=== PATIENT | male | born 1930 | race Caucasian/White ===

== ENCOUNTER 2017-07-07 08:00 | Day surgery (SDC) | payer MEDICARE, BC ==
[2017-06-30 23:08] VITALS: BMI 31.8
[~2017-07-07 08:00] MED LIST: LACTATED RINGERS 1,000 ML IV SCH
[2017-07-07] MEDS ORDERED: LIDOCAINE 1% 20 ML VIAL (10MG/ML) FOR IV START INTRADERMA ONE (08:41)
[2017-07-07 08:43] VITALS: RESP 16; TEMP 97.3
--- NOTE | 2017-07-07 09:47 | P.PCN ---
Date of Procedure: 07/07/17 Procedure(s) Performed: PREOPERATIVE DIAGNOSIS : 1- Lumbar spondylosis with Facet Arthropathy without myelopathy . 2- Lumber Failed back surgery POSTOPERATIVE DIAGNOSIS: 1- Lumbar spondylosis with Facet Arthropathy without myelopathy . 2- Lumber Failed back surgery PROCEDURE: Diagnostic bilateral L4 -5 , and L5-S1 medial branch block under fluoroscopy ( I couldnot do L3-4 or L2-3 because of the Hardware was covering the View ) I did 2 levels only ANESTHESIA: Local with 1% lidocaine 4 ml , moderate sedation with intravenous, and Fentanyl 100 mcg. EBL: Minimal COMPLICATION: None. IV FLUIDS: 100 mL of normal saline. PROCEDURE INDICATION: Chronic low back pain secondary to Facet arthropathy unresponsive to conservative treatment. PROCEDURE DESCRIPTION: the patient was seen and identified in the preop holding area , risks and benefits and possible complications of the procedure and alternative were discussed with the patient, and the patient agreed to proceed with the procedure and signed the consent IV was started and vital signs monitored during the procedure and fluoroscopy was used to maximize the benefit and accuracy of the needle placement, and sedation was given to decrease patient anxiety, patient was taken to the procedure room and placed in prone position vital signs monitored in the back prepped with chlorhexidine X3 then under strict sterile technique using a right oblique fluoroscopy ,the junction of the transverse process and the superior articulating process of the right L4- 5, and L5-S1 vertebra which corresponding to the fluoroscopy image of the eye of the Hilario dog on the block side for the medial branches and subsequently , after local infiltration of skin and subcu tissuies with lidocaine 1% one mL at each level ,then 22- gauge Quincke-type needles , 2 needle was used , each one of them placed at the junction of the base of the transverse process and the superior articular process at the appropriate level, and the needle was advanced until the periosteum contacted, needle placement confirmed with AP oblique and lateral view and after appropriate needle placement confirmed, and after negative aspiration for heme and CSF and there was no paresthesia 1 mL of Marcaine 0.5% mixed with 40 mg Kenalog , then half mL injected at each level after negative aspiration the needle subsequently removed and the same procedure repeated for the left side at left side at , L4- 5 and L5-S1 levels. At the end of the procedure and the needles removed and a bandage applied after the skin was cleaned the cleaning solution patient taken to recovery room in stable condition and monitors in the recovery room for 20-30 minutes and discharged home in stable condition after discharge criteria met and patient will follow up with the pain clinic in 2-4 weeks
[2017-07-07] MEDS ORDERED: IV FLUID CONTINUATION 1,000 ML IV ONE (09:51)
--- NOTE | 2017-07-07 10:09 | FL ---
Fluoroscopy HISTORY: Pain 6 seconds fluoroscopy time supplied to the referring clinician. 4 intraoperative C-arm images docume nt the procedure. See dictated report from anesthesia.
[2017-07-07 10:18] VITALS: BP 147/78; PULSE 64
== END 2017-07-07 10:37 | disposition home or self-care (01) ==
LOC: ORPAIN 08:00
PROVIDERS: ATTEND Specialist
DX: G89.29 Other chronic pain (principal); M47.816 Spondylosis without myelopathy or radiculopathy, lumbar region; M96.1 Postlaminectomy syndrome, not elsewhere classified; I10 Essential (primary) hypertension; K21.9 Gastro-esophageal reflux disease without esophagitis; G20 Parkinson's disease
CPT/HCPCS: 64493; 64494; J2250; J3301; 99152

== ENCOUNTER → 2017-08-09 | Outpatient (CLI) | payer MEDICARE, BC ==
[2017-08-09 14:46] VITALS: BP 126/66; PULSE 67; RESP 16
--- NOTE | 2017-08-09 15:13 | P.PN ---
Progress Note - Text Progress Note Date: 08/09/17 This is a 6-year-old gentleman with history of lower back pain with radiation to the lower extremities down to both calves with occasional numbness and tingling in the legs. The patient did not respond to diagnostic medial branch block. He occasionally takes oxycodone ER 10 mg once a day but he tries to avoid it because it does cause him constipation. By physical exam he is alert oriented 3 in no apparent distress. Neuro exam of the lower extremities showed normal and symmetrical hip flexion, decreased knee flexion bilaterally to 4 out of 5 and normal knee extension bilaterally he also has normal ankle flexion and extension bilaterally. He has absent deep tendon reflexes in the lower extremities bilaterally and symmetrically. Straight leg raise test negative bilaterally. The patient may benefit from getting caudal epidural steroid injection with lysis of adhesions, we will do this injection one time only for avoid giving him too much steroids. If this procedure doesn't help the patient and give him long-lasting benefits then we can plan on repeating that but if it doesn't the patient may be a candidate for spinal cord stimulator and I will give him a DVD to explain the procedure .
== END | disposition home or self-care (01) ==
LOC: PNWHC3 14:22
PROVIDERS: ATTEND Anesthesiology
DX: M54.5 Low back pain (principal)
CPT/HCPCS: 99211

== ENCOUNTER 2017-09-06 08:40 | Day surgery (SDC) | payer MEDICARE, BC ==
[2017-09-01 13:44] VITALS: BMI 31.8
[~2017-09-06 08:40] MED LIST changes: +LACTATED RINGERS 1,000 ML IV ONE; -LACTATED RINGERS 1,000 ML IV SCH
[2017-09-06 09:55] VITALS: TEMP 97.8
[2017-09-06] MEDS ORDERED: LIDOCAINE 1% 20 ML VIAL (10MG/ML) FOR IV START INTRADERMA ONE (09:55)
[2017-09-06] MEDS ORDERED: LACTATED RINGERS 1,000 ML IV ONE ×2 (09:55)
--- NOTE | 2017-09-06 10:57 | P.PCN ---
Date of Procedure: 09/06/17 Surgeon: Stanislav Chan Description of Procedure: PREOP DIAGNOSIS: Lumbar postlaminectomy syndrome. POSTOP DIAGNOSIS: Lumbar postlaminectomy syndrome. PROCEDURE: Caudal epidural steroid injection with epidurolysis and epidurogram under fluoroscopic guidance ANESTHESIA: Local with 1% lidocaine; IV moderate conscious sedation EBL: Minimal. PROCEDURE INDICATION: The patient with post-laminectomy syndrome with low back pain and radiculopathy radiating down in both legs, here for a caudal epidural steroid injection with epidurolysis. PROCEDURE DESCRIPTION: The patient was seen in the preoperative holding area consent was obtained then he was brought into the procedure room and placed in prone position. Skin was prepped with ChloraPrep and draped in a sterile manner. Lidocaine 1% was used to numb the skin up at the target point that was chosen as follows: The lateral view of fluoroscopy was used to identify the sacral hiatus and then after localizing the skin with lidocaine 1% I used 18- gauge epidural needle with a plastic sheath to go through the sacral hiatus and into the sacral canal and then injected 1 mL of Omnipaque for verification of needle tip position. After that the metal core of the needle was taken out and the plastic sheath was kept in the sacral canal. Then Racz catheter was introduced through the plastic sheath and into the epidural space at the sacral canal using the AP view of fluoroscopy up to L5-S1 level then I injected 2 MLS of Omnipaque which showed limited spread in the epidural space and after few back and forth movements of the Racz catheter I was able to introduce the needle one level higher to the L4 5 level and then there was more spread of the Omnipaque after injecting 3 more mils of Omnipaque on the AP view of fluoroscopy. After that I injected 80 mg of Kenalog +2 MLS of Marcaine 0.25% + 7 MLS of preservative-free normal saline to a total volume of 10 MLS in the epidural space. Patient tolerated procedure well. Of note: The Racz catheter was introduced to the right side of midline because most of the patient's pain is on the right side of the lower back and also down the right leg to the right foot . COMPLICATIONS: None. DISPOSITION / PLANS: The patient was placed in a supine position and transferred to the recovery area in a stable condition for observation and was discharged from the recovery room after meeting discharge criteria. Home discharge instructions given to the patient by the staff. The patient was reexamined prior to discharge.
[2017-09-06 11:05] VITALS: RESP 16
[2017-09-06 11:16] VITALS: BP 157/88; PULSE 61
[2017-09-06] MEDS ORDERED: IV FLUID CONTINUATION 1,000 ML IV ONE (11:19)
--- NOTE | 2017-09-06 11:46 | FL ---
EXAMINATION TYPE: FL guided pain mgmt statistic DATE OF EXAM: 09/06/2017 HISTORY: Flouroscopy time 36 seconds of fluoroscopy provided. IMPRESSION: 1. Fluoroscopy time.
== END 2017-09-06 11:24 | disposition home or self-care (01) ==
LOC: ORPAIN 08:40
PROVIDERS: ATTEND Anesthesiology
DX: M96.1 Postlaminectomy syndrome, not elsewhere classified (principal); I10 Essential (primary) hypertension
CPT/HCPCS: 62264; J3301; Q9965; J3010; C1894; 99152

== ENCOUNTER → 2017-12-20 | Outpatient (CLI) | payer MEDICARE, BC ==
--- NOTE | 2017-12-20 14:18 | BD ---
EXAMINATION TYPE: Axial Bone Density DATE OF EXAM: 12/20/2017 COMPARISON: NONE CLINICAL HISTORY: Height: 232.9 Weight: 69 FRAX RISK QUESTIONS: Alcohol (3 or more units per day): no Family History (Parent hip fracture): no Glucocorticoids (More than 3mos): no (Ex: prednisone, prednisolone, methylprednisolone, dexamethasone, and hydrocortisone). History of Fracture in Adulthood: no Secondary Osteoporosis: 1. Type 1 Diabetes: no 2. Hyperthyroidism: no 3. Menopause before 45: N/A 4. Malnutrition: no 5. Chronic liver disease: no Rheumatoid Arthritis: no Current Tobacco Use: no RISK FACTORS HISTORY OF: Surgery to Spine/Hip(right/left)/Wrist (right/left): lumbar spine fusion l-3.4 When: 3 years ago Family History of Osteoporosis: no Active: no Diet low in dairy products/other sources of calcium: no Lost more than 2 inches in height since high school: no Frequent falls: yes MEDICATIONS: zantac, oxycodone, sinemet, atenolol, lotrel, methotrexate, folic acid, vit d, vit b12 Additional History: EXAM MEASUREMENTS: Bone mineral densitometry was performed using the Map[employer] System. Bone mineral density about the R hip (g/cm2): 0.849 Bone mineral density about the L hip (g/cm2): 0.825 T Score values are as follows: -----R Neck: -1.4 -----L Neck: -1.5 -----R Total: -1.2 -----L Total: -0.8 Bone mineral density : baseline Bone mineral density about the L Wrist (g/cm2): 0.506 T Score values are as follows: -----Dist. R+U: -2.8 -----Prox. R+U: -3.2 -----Radius total: -3.6 Bone mineral density : baseline IMPRESSION: Osteoporosis (T Score less than -2.5). There is increased fracture risk and therapy is usually indicated based on age. Re-Screen 1-2 years. NOTE: T-SCORE=SD OF THE YOUNG ADULT MEAN.
== END | disposition home or self-care (01) ==
LOC: RADBDWWP 13:16
PROVIDERS: ATTEND Orthopaedic Surgery
DX: M81.0 Age-related osteoporosis without current pathological fracture (principal); M17.11 Unilateral primary osteoarthritis, right knee
CPT/HCPCS: 36415; 77080; 82306

== ENCOUNTER → 2018-08-18 | Outpatient (CLI) | payer MEDICARE, BC ==
--- NOTE | 2018-08-19 03:20 | MR ---
EXAMINATION TYPE: MR iac wo/w con DATE OF EXAM: 08/18/2018 COMPARISON: None HISTORY: dizziness, alvin weakness TECHNIQUE: Multiplanar, multisequence images of the brain and brainstem is performed without and with IV contras t, utilizing 10 mL intravenous Gadavist . FINDINGS: There is diffuse cerebral cortical atrophy. There is moderate enlargement of the ventricles . There is thinning of the corpus callosum. I see no evidence of a cortical infarct. The brainstem is intact. The internal auditory canals appear normal. Acoustic nerve and vestibular nerve appear normal in size and contour. There is no evidence of cerebellopontine angle mass. I see no bony destructive process. There is normal signal pattern in the temporal bones. There is no pathologic enhancement. There is n ormal contrast opacification of the venous sinuses. IMPRESSION: Moderate atrophy. Hydrocephalus. No evidence of posterior fossa mass. Normal internal aud itory canals.
== END | disposition home or self-care (01) ==
LOC: RADMRIMAIN 18:31
PROVIDERS: ATTEND Otolaryngology
DX: G31.9 Degenerative disease of nervous system, unspecified (principal); G91.9 Hydrocephalus, unspecified; H91.90 Unspecified hearing loss, unspecified ear; H81.93 Unspecified disorder of vestibular function, bilateral
CPT/HCPCS: 70553; A9585

== ENCOUNTER 2018-10-27 15:27 | Observation (INO) | payer MEDICARE, BC ==
[2018-10-27] MEDS ORDERED: SODIUM CHLORIDE 0.9% 500 ML 500 ML IV STA (15:48)
--- NOTE | 2018-10-27 15:58 | ED ---
General Adult HPI - General Chief complaint: Seizure Stated complaint: WEAKNESS Time Seen by Provider: 10/27/18 15:30 Source: patient, EMS, RN notes reviewed Mode of arrival: EMS Limitations: no limitations - History of Present Illness Initial comments: This is an 88-year-old male who presents to the emergency department after having had an episode a restaurant. Patient took an OxyContin approximate hour later went out to lunch without having eaten much that day and was feeling extremely weak and needed assistance to get into the restaurant. People were assisting him into the restaurant stated he was dragging his right leg at that point. thinks she was just weak all over but insisted he was dragging his right leg. Once again has had a restaurant and sat down he was feeling little better the ordered some food he took a couple bites of his food and then started just staring straight ahead according to the and began to shake for a short period of time said he shook for approximately 30 seconds and then just stared ahead everybody came over and helped him and he was confused for a short period of time and then started to come around and by that time EMS had arrived. Patient currently has no complaints. Patient denies any headache patient denies lightheadedness. Patient denies any chest pain palpitations difficulty breathing shortness of breath. Patient denies any recent fever chills or cough. Patient denies abdominal pain patient denies any nausea or vomiting. Patient denies any recent diarrhea. - Related Data Home Medications Medication Instructions Recorded Confirmed Aspirin 81 mg PO DAILY 11/13/13 10/27/18 Methotrexate Sodium [Methotrexate] 12.5 mg PO WE 11/13/13 10/27/18 Ranitidine HCl [Zantac] 150 mg PO BID 11/13/13 10/27/18 amLODIPine BESYLATE/BENAZEPRIL 1 each PO DAILY 11/13/13 10/27/18 [Lotrel 5-10 mg Capsule] Vit A/Vit C/Vit E/Zinc/Copper 1 cap PO DAILY 04/23/17 10/27/18 [ICAPS SOFTGEL] oxyCODONE ER [OxyCONTIN 10MG E.R] 10 mg PO Q12HR PRN 04/23/17 10/27/18 Folic Acid 1 mg PO DAILY 06/29/17 10/27/18 Acetaminophen [Tylenol] 325 mg PO Q8H 10/27/18 10/27/18 Atenolol [Tenormin] 25 mg PO DAILY 10/27/18 10/27/18 Carbidopa-Levodopa 25-250 mg 1 tab PO BID 10/27/18 10/27/18 [Sinemet 25-250 mg] Carbidopa/Levodopa [Sinemet CR 1 tab PO DAILY 10/27/18 10/27/18 50-200 mg] Ipratropium [place] 0.06%Nasal 1 spray EA NOSTRIL TID 10/27/18 10/27/18 [Atrovent Nasal 0.06%] Allergies Allergy/AdvReac Type Severity Reaction Status Date / Time No Known Allergies Allergy Verified 10/27/18 16:05 Review of Systems ROS Statement: Those systems with pertinent positive or pertinent negative responses have been documented in the HPI. ROS Other: All systems not noted in ROS Statement are negative. 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 prostate cancer-had radiation History of Any Multi-Drug Resistant Organisms: None Reported Past Surgical History: Back Surgery, Cholecystectomy Additional Past Surgical History / Comment(s): [facility]. Past Anesthesia/Blood Transfusion Reactions: No Reported Reaction Past Psychological History: No Psychological Hx Reported Smoking Status: Former smoker - Past Family History Mother Family Medical History: No Reported History General Exam - General Exam Comments Initial Comments: GENERAL: Patient is well-developed and well-nourished. Patient is nontoxic and well- hydrated and is in mild distress. ENT: Neck is soft and supple. No significant lymphadenopathy is noted. Oropharynx is clear. Moist mucous membranes. Neck has full range of motion without eliciting any pain. EYES: The sclera were anicteric and conjunctiva were pink and moist. Extraocular movements were intact and pupils were equal round and reactive to light. Eyelids were unremarkable. PULMONARY: Unlabored respirations. Good breath sounds bilaterally. No audible rales rhonchi or wheezing was noted. CARDIOVASCULAR: There is a regular rate and rhythm without any murmurs gallops or rubs. ABDOMEN: Soft and nontender with normal bowel sounds. SKIN: Skin is clear with no lesions or rashes and otherwise unremarkable. NEUROLOGIC: Patient is alert and oriented x3. Cranial nerves II through XII are grossly intact. Motor and sensory are also intact. Normal speech, volume and content. Symmetrical smile. ebellar exam grossly intact. MUSCULOSKELETAL: Normal extremities with adequate strength and full range of motion. No lower extremity swelling or edema. No calf tenderness. LYMPHATICS: No significant lymphadenopathy is noted PSYCHIATRIC: Normal psychiatric evaluation. Limitations: no limitations Course Vital Signs 10/27/18 15:28 Temperature 97.7 F Pulse Rate 54 L Respiratory 18 Rate Blood Pressure 128/64 O2 Sat by Pulse 98 Oximetry Medical Decision Making - Medical Decision Making EKG shows sinus bradycardia at [address] interval is 246 QRS is 122 QT interval 472 QTC is 459 per patient's EKG shows a right bundle branch block. No ST segment depression or elevation Chest x-ray shows possible infiltrate however patient has no symptoms of pneumonia no fever no white count at this point time it will not be treating for pneumonia. On reevaluation of the patient patient has no neurologic deficit at this time.. CT of the brain shows no acute abnormality. - Lab Data Result diagrams: 10/27/18 15:49 10/27/18 15:49 Lab Results 10/27/18 10/27/18 10/27/18 Range/Units 15:49 15:49 15:49 WBC 7.4 (3.8-10.6) k/uL RBC 4.54 (4.30-5.90) m/uL Hgb 13.7 (13.0-17.5) gm/dL Hct 41.4 (39.0-53.0) % MCV 91.1 (80.0-100.0) fL MCH 30.1 (25.0-35.0) pg MCHC 33.0 (31.0-37.0) g/dL RDW 16.3 H (11.5-15.5) % Plt Count 279 (150-450) k/uL Neutrophils % 59 % Lymphocytes % 31 % Monocytes % 6 % Eosinophils % 2 % Basophils % 1 % Neutrophils # 4.3 (1.3-7.7) k/uL Lymphocytes # 2.3 (1.0-4.8) k/uL Monocytes # 0.4 (0-1.0) k/uL Eosinophils # 0.1 (0-0.7) k/uL Basophils # 0.1 (0-0.2) k/uL Anisocytosis Slight Sodium 138 (137-145) mmol/L Potassium 4.1 (3.5-5.1) mmol/L Chloride 105 (98-107) mmol/L Carbon Dioxide 26 (22-30) mmol/L Anion Gap 7 mmol/L BUN 16 (9-20) mg/dL Creatinine 0.87 (0.66-1.25) mg/dL Est GFR (CKD-EPI)AfAm >90 (>60 ml/min/1.73 sqM) Est GFR (CKD-EPI)NonAf 78 (>60 ml/min/1.73 sqM) Glucose 115 H (74-99) mg/dL Calcium 8.9 (8.4-10.2) mg/dL Total Bilirubin 0.7 (0.2-1.3) mg/dL AST 19 (17-59) U/L ALT 16 L (21-72) U/L Alkaline Phosphatase 71 (38-126) U/L Troponin I <0.012 (0.000-0.034) ng/mL Total Protein 6.0 L (6.3-8.2) g/dL Albumin 3.7 (3.5-5.0) g/dL Disposition Clinical Impression: Syncope, TIA (transient ischemic attack) Disposition: ADMITTED IP TO THIS HOSP Referrals: Mandeep Mar MD [Primary Care Provider] - 1-2 days Time of Disposition: 16:46
[2018-10-27 16:13] LABS: Anisocytosis Slight; Basophils # (A) 0.1 k/uL (0-0.2); Basophils % (A) 1 %; Eosinophils # (A) 0.1 k/uL (0-0.7); Eosinophils % (A) 2 %; HCT 41.4 % (39.0-53.0); HGB 13.7 gm/dL (13.0-17.5); Lymphocytes # (A) 2.3 k/uL (1.0-4.8); Lymphocytes % (A) 31 %; MCH 30.1 pg (25.0-35.0); MCV 91.1 fL (80.0-100.0); Monocytes # (A) 0.4 k/uL (0-1.0); Monocytes % (A) 6 %; Neutrophils # (A) 4.3 k/uL (1.3-7.7); Neutrophils % (A) 59 %; Platelet Count 279 k/uL (150-450); RBC 4.54 m/uL (4.30-5.90); RDW 16.3 % (11.5-15.5); WBC 7.4 k/uL (3.8-10.6)
[2018-10-27 16:18] LABS: Prothrombin Time 10.9 sec (9.0-12.0)
[2018-10-27 16:19] LABS: ALT 16 U/L (21-72); AST 19 U/L (17-59); Albumin 3.7 g/dL (3.5-5.0); Alkaline Phosphatase 71 U/L (38-126); Anion Gap 7 mmol/L; Blood Urea Nitrogen 16 mg/dL (9-20); Calcium 8.9 mg/dL (8.4-10.2); Carbon Dioxide 26 mmol/L (22-30); Chloride 105 mmol/L (98-107); Glucose 115 mg/dL (74-99); Potassium 4.1 mmol/L (3.5-5.1); Sodium 138 mmol/L (137-145); Total Bilirubin 0.7 mg/dL (0.2-1.3)
--- NOTE | 2018-10-27 16:27 | CT ---
EXAMINATION TYPE: CT brain wo con for TPA DATE OF EXAM: 10/27/2018 COMPARISON: 05/31/2020 06/29/2012 INDICATION: Dizziness. DLP: 1166.4 mGycm, Automated exposure control for dose reduction was used. CONTRAST: None CT of the brain is performed utilizing 3 mm thick sections through the posterior fossa and 3 mm thick sections through the remaining calvarium. Study is performed within 24 hours of arrival to the hosp ital. No abnormal hyperdensity is present to suggest an acute intracranial hemorrhage. No mass lesion is evident. No acute infarcts are evident. Ventricles and sulci are prominent for the patient age. Paranasal sinuses and mastoid air cells within the [id number] are clear. IMPRESSIONS: 1. Atrophy
--- NOTE | 2018-10-27 16:38 | XR ---
EXAMINATION TYPE: XR chest 2V DATE OF EXAM: 10/27/2018 COMPARISON: 10/29/2015 HISTORY: Weakness TECHNIQUE: Frontal and lateral views of the chest are obtained. FINDINGS: There is no heart failure. There is some coarsening of the lung markings. There is minimal infiltrate right lower lobe. Heart size is fairly normal. Bony thorax is intact. IMPRESSION: There is new mild infiltrate right lower lobe compared to old exam. No heart failure.
[2018-10-27 22:02] VITALS: BMI 31.1
[2018-10-28 04:13] LABS: Cholesterol 150 mg/dL (<200); HDL Cholesterol 35 mg/dL (40-60); LDL Cholesterol,Calculated 95 mg/dL (0-99); Triglycerides 102 mg/dL (<150)
--- NOTE | 2018-10-28 07:47 | P.HPIM ---
History of Present Illness H&P Date: 10/28/18 Chief Complaint: gait disturbance of the right lower extremity weakness This is a history of physical and a 8-year-old white male who presented emergency department after having a syncopal episode at the restaurant. He has elements of chronic pain and took oxycodone. He states poor appetite recently and states he has not been eating or drinking nearly as much as usual. He states that his right leg/foot was "stuck to the ground." He claims weakness but his stated that he tended to have shaking episode with staring. No previous history of seizure but he is had history of presyncope in the remote past. No swallowing difficulties. He has ambulated to the bathroom appropriately without any voiding difficulties. There was no urinary or bowel incontinence during the episode. No overt chest pain or shortness of breath. He denies any significant belly pain at this time. He has an underlying history of element of Parkinson's disease with hypertension. Review of Systems Constitutional: Denies chills, Denies fever Eyes: denies blurred vision, denies pain Ears, nose, mouth and throat: Denies headache, Denies sore throat Cardiovascular: Denies chest pain, Denies shortness of breath Respiratory: Denies cough Gastrointestinal: Denies abdominal pain, Denies diarrhea, Denies nausea, Denies vomiting Musculoskeletal: Reports gait dysfunction, Reports leg numbness/tingling, Reports limitation of motion, Denies frequent falls Neurological: Reports ataxia, Reports gait dysfunction, Denies change in speech, Denies loss of vision, Denies memory loss, Denies numbness 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 prostate cancer-had radiation History of Any Multi-Drug Resistant Organisms: None Reported Past Surgical History: Back Surgery, Cholecystectomy Additional Past Surgical History / Comment(s): [facility]. Past Anesthesia/Blood Transfusion Reactions: No Reported Reaction Smoking Status: Never smoker - Past Family History Mother Family Medical History: No Reported History Medications and Allergies Home Medications Medication Instructions Recorded Confirmed Type Aspirin 81 mg PO DAILY 11/13/13 10/27/18 History Methotrexate Sodium [Methotrexate] 12.5 mg PO WE 11/13/13 10/27/18 History Ranitidine HCl [Zantac] 150 mg PO BID 11/13/13 10/27/18 History amLODIPine BESYLATE/BENAZEPRIL 1 each PO DAILY 11/13/13 10/27/18 History [Lotrel 5-10 mg Capsule] Vit A/Vit C/Vit E/Zinc/Copper 1 cap PO DAILY 04/23/17 10/27/18 History [ICAPS SOFTGEL] oxyCODONE ER [OxyCONTIN 10MG E.R] 10 mg PO Q12HR PRN 04/23/17 10/27/18 History Folic Acid 1 mg PO DAILY 06/29/17 10/27/18 History Acetaminophen [Tylenol] 325 mg PO Q8H 10/27/18 10/27/18 History Atenolol [Tenormin] 25 mg PO DAILY 10/27/18 10/27/18 History Carbidopa-Levodopa 25-250 mg 1 tab PO BID 10/27/18 10/27/18 History [Sinemet 25-250 mg] Carbidopa/Levodopa [Sinemet CR 1 tab PO DAILY 10/27/18 10/27/18 History 50-200 mg] Ipratropium [place] 0.06%Nasal 1 spray EA NOSTRIL TID 10/27/18 10/27/18 History [Atrovent Nasal 0.06%] Allergies Allergy/AdvReac Type Severity Reaction Status Date / Time No Known Allergies Allergy Verified 10/27/18 16:05 Physical Exam Vitals: Vital Signs Temp Pulse Pulse Resp BP BP Pulse Ox 10/28/18 07:37 97 10/28/18 05:46 144/77 10/28/18 04:00 98.2 F 77 18 144/77 98 10/28/18 03:46 80 10/28/18 01:46 79 18 150/69 97 10/27/18 23:50 72 18 146/70 98 10/27/18 23:46 78 18 145/82 97 10/27/18 21:55 97.5 F L 77 16 147/87 98 10/27/18 17:00 58 L 10 L 138/67 99 10/27/18 16:30 54 L 14 138/67 99 10/27/18 16:00 53 L 12 128/64 99 10/27/18 15:28 97.7 F 54 L 18 128/64 98 Intake and Output 10/27/18 10/28/18 10/28/18 22:59 06:59 14:59 Other: # Voids 1 Weight 108.862 kg 104.2 kg - Constitutional General appearance: cooperative, no acute distress - EENT Eyes: EOMI - Neck Neck: no lymphadenopathy - Respiratory Respiratory: bilateral: CTA - Cardiovascular Rhythm: regular Heart sounds: normal: S1, S2 Abnormal Heart Sounds: no S3 Gallop - Gastrointestinal General gastrointestinal: no tenderness - Integumentary Integumentary: no cellulitis, no flushed, no jaundiced - Musculoskeletal Musculoskeletal: strength equal bilaterally - Psychiatric Psychiatric: A&O x's 3 Results CBC & Chem 7: 10/27/18 15:49 10/27/18 15:49 Labs: Abnormal Lab Results - Last 24 Hours (Table) 10/27/18 10/27/18 10/27/18 Range/Units 15:49 15:49 15:49 RDW 16.3 H (11.5-15.5) % Glucose 115 H (74-99) mg/dL ALT 16 L (21-72) U/L Total Protein 6.0 L (6.3-8.2) g/dL HDL Cholesterol 35 L (40-60) mg/dL Thrombosis Risk Factor Assmnt - Choose All That Apply Any of the Below Risk Factors Present?: Yes Each Factor Represents 1 point: Obesity (BMI >25) Other Risk Factors: Yes Each Risk Factor Represents 3 Points: Age 75 years or older Thrombosis Risk Factor Assessment Total Risk Factor Score: 4 Thrombosis Risk Factor Assessment Level: Moderate Risk Assessment and Plan (1) Rheumatoid arthritis Current Visit: Yes Status: Acute Code(s): M06.9 - RHEUMATOID ARTHRITIS, UNSPECIFIED SNOMED Code(s): 95690294 (2) Parkinsons disease Current Visit: Yes Status: Acute Code(s): G20 - PARKINSON'S DISEASE SNOMED Code(s): 84557636 (3) Syncope Current Visit: Yes Status: Acute Code(s): R55 - SYNCOPE AND COLLAPSE SNOMED Code(s): 605762728 (4) TIA (transient ischemic attack) Current Visit: Yes Status: Acute Code(s): G45.9 - TRANSIENT CEREBRAL ISCHEMIC ATTACK, UNSPECIFIED SNOMED Code(s): 646827254 Plan: we'll go ahead and order echocardiogram with carotid Doppler. Computed tomography scan of the head if not done. Appreciate neurology input. Check CBC and CMP in a.m. Physical therapy for ambulation evaluation.
--- NOTE | 2018-10-28 08:51 | US ---
EXAMINATION TYPE: US carotid duplex BILAT DATE OF EXAM: 10/28/2018 COMPARISON: US 06/01/2013 CLINICAL HISTORY: presyncope/syncope/TIA. EXAM MEASUREMENTS: RIGHT: Peak Systolic Velocity (PSV) cm/sec ----- Right CCA: 114.5 ----- Right ICA: 95.1 ----- Right ECA: 92.4 ICA/CCA ratio: 0.8 RIGHT: End Diastole cm/sec ----- Right CCA: 17.6 ----- Right ICA: 11.1 ----- Right ECA: 92.4 LEFT: Peak Systolic Velocity (PSV) cm/sec ----- Left CCA: 104.8 ----- Left ICA: 96.8 ----- Left ECA: 116.0 ICA/CCA ratio: 0.9 LEFT: End Diastole cm/sec ----- Left CCA: 9.5 ----- Left ICA: 14.4 ----- Left ECA: 7.7 VERTEBRALS (direction of flow): Right Vertebral: Antegrade Left Vertebral: Antegrade Rhythm: Arrhythmia as seen in image 44 & 47 Mild plaque visualized bilaterally. No elevated velocities, no significant stenosis. No significant stenosis of the proximal internal carotid arteries is noted on waveform analysis. Grayscale, color Doppler, spectral Doppler imaging performed of the carotid arteries. IMPRESSION: No hemodynamic significant stenosis of the proximal internal carotid arteries bilaterall y by Doppler criteria, an indirect measurement of carotid stenosis
--- NOTE | 2018-10-28 12:36 | P.CNNES ---
History of Present Illness Consult date: 10/28/18 Reason for Consult: TIA History of Present Illness: Patient is a 88-year-old male with history of Parkinson's disease, chronic back pain, uses walker for ambulation, had an episode of acute onset of walking difficulty yesterday in the afternoon at the lunch. The patient tells me that he has problem with legs not working as a baseline related to his Parkinson's and back issues. He was slightly worse the day before but still functional. Yesterday he was fine in the morning. He went to [employer]. He developed significant difficulty with walking. Patient is not a good historian, and fortunately his came over, who stated that in the morning he was fine, went to put the garbage outside and then picked up the mail. He then got into the car without any problem. When they arrived at [employer], he entered the building but then started dragging his right leg, could hardly move. He was moving very slow, walking to the table. He got seated, and then had some salad for lunch. Afterward he had seizure-type spell, in which his whole body was shaking, he got pale. The shaking stopped, but he had a glassy eyes. He asked his to call 911 and was brought to the hospital. There was no tongue bite or urinary incontinence. No previous history of seizure disorder. Patient had computed tomography scan of the head, which revealed no acute process. There is atrophy. Paranasal sinuses are clear. On my review, there is prominence of the ventricles, suggestive of possible normal pressure hydrocephalus. Patient's bl ood tests shows normal CBC, with MCV 91.1, PT/PTT normal, Chem-7 normal, liver panel normal. Patient had a carotid Doppler, which showed no significant stenosis. Patient's previous blood tests showed normal acetylcholine receptor antibodies, vitamin B12 834 on 11/06/2013, methylmalonic acid was normal. Hemoglobin A1c 5.5. Patient had a previous MRI of the brain from 08/19/2018, which showed mo derate atrophy, hydrocephalus. I reviewed the MRI, and it given the findings. Patient does have memory issues, some urgency of urine, but no incontinence. Patient's states that his brother also has been diagnosed with normal pressure hydrocephalus and had undergone ventriculoperitoneal shunting in the past. Patient follows up with , neurologist. Review of Systems Constitutional: Reports as per HPI, Reports weakness, Denies fever, Denies le thargy Eyes: denies loss of peripheral vision, denies loss of vision Ears: deny: ear discharge Ears, nose, mouth and throat: Denies dysphagia, Denies vertigo Cardiovascular: Denies chest pain, Denies palpitations Genitourinary: Reports nocturia Musculoskeletal: right: shoulder stiffness Neurological: Reports as per HPI, Reports weakness 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 prostate cancer-had radiation History of Any Multi-Drug Resistant Organisms: None Reported Past Surgical History: Back Surgery, Cholecystectomy Additional Past Surgical History / Comment(s): [facility]. Past Anesthesia/Blood Transfusion Reactions: No Reported Reaction Smoking Status: Never smoker - Past Family History Mother Family Medical History: No Reported History Medications and Allergies Home Medications Medication Instructions Recorded Confirmed Type Aspirin 81 mg PO DAILY 11/13/13 10/27/18 History Methotrexate Sodium [Methotrexate] 12.5 mg PO WE 11/13/13 10/27/18 History Ranitidine HCl [Zantac] 150 mg PO BID 11/13/13 10/27/18 History amLODIPine BESYLATE/BENAZEPRIL 1 each PO DAILY 11/13/13 10/27/18 History [Lotrel 5-10 mg Capsule] Vit A/Vit C/Vit E/Zinc/Copper 1 cap PO DAILY 04/23/17 10/27/18 History [ICAPS SOFTGEL] oxyCODONE ER [OxyCONTIN 10MG E.R] 10 mg PO Q12HR PRN 04/23/17 10/27/18 History Folic Acid 1 mg PO DAILY 06/29/17 10/27/18 History Acetaminophen [Tylenol] 325 mg PO Q8H 10/27/18 10/27/18 History Atenolol [Tenormin] 25 mg PO DAILY 10/27/18 10/27/18 History Carbidopa-Levodopa 25-250 mg 1 tab PO BID 10/27/18 10/27/18 History [Sinemet 25-250 mg] Carbidopa/Levodopa [Sinemet CR 1 tab PO DAILY 10/27/18 10/27/18 History 50-200 mg] Ipratropium [place] 0.06%Nasal 1 spray EA NOSTRIL TID 10/27/18 10/27/18 History [Atrovent Nasal 0.06%] Allergies Allergy/AdvReac Type Severity Reaction Status Date / Time No Known Allergies Allergy Verified 10/27/18 16:05 Physical Examination - Vital Signs Vital Signs: Vital Signs Temp Pulse Pulse Resp BP BP Pulse Ox 10/28/18 08:39 98.1 F 64 16 133/87 96 10/28/18 07:37 97 10/28/18 05:46 144/77 10/28/18 04:00 98.2 F 77 18 144/77 98 10/28/18 03:46 80 10/28/18 01:46 79 18 150/69 97 10/27/18 23:50 72 18 146/70 98 10/27/18 23:46 78 18 145/82 97 10/27/18 21:55 97.5 F L 77 16 147/87 98 10/27/18 17:00 58 L 10 L 138/67 99 10/27/18 16:30 54 L 14 138/67 99 10/27/18 16:00 53 L 12 128/64 99 10/27/18 15:28 97.7 F 54 L 18 128/64 98 Intake and Output 10/27/18 10/28/18 10/28/18 22:59 06:59 14:59 Other: # Voids 1 1 Weight 108.862 kg 104.2 kg On examination patient is an elderly male, in no distress. He is alert and awake. Patient knows that it is October and the year is 2018. He tells me it is hospital but could not tell me the name. He knows that he lives in [place], but does not know the county he lives in. Speech and language functions are normal. Attention and concentration fund of knowledge is adequate for age. On cranial nerve examination pupils are round and reactive to light, visual frances are full on confrontation and extraocular muscles are intact. Face is symmetric and tongue protrudes in midline. Palatal elevation normal. Muscle strength testing there is no pronator drift and the strength is normal in the arms and legs except right shoulder which is slightly weak from arthritis. Tone is very mildly increased if at all. Bulk of muscles normal. Reflexes are diminished and plantars are downgoing. No ataxia. Bohwig-zw-xdeh testing. Patient is mildly bradykinetic. He has slightly decreased facial expression. No tremors at rest were noted. Patient has significant difficulty getting up from the bed. Once he got up, he walked with a stooped posture, required walker, and has magnetic gait Results - Laboratory Findings CBC and BMP: 10/27/18 15:49 10/27/18 15:49 Abnormal Lab Findings: Abnormal Labs 10/27/18 10/27/18 10/27/18 15:49 15:49 15:49 RDW 16.3 H Glucose 115 H ALT 16 L Total Protein 6.0 L HDL Cholesterol 35 L Assessment and Plan Assessment: * Acute onset of gait difficulty, and syncope/seizure type spell. Rule out TIA. Patient is back to baseline. * Abnormal computed tomography scan of head with evidence of possible hydrocephalus. Patient has parkinsonism, gait difficulty, memory difficulties, raising possibility of normal pressure hydrocephalus. Plan: Patient has parkinsonism, which is somewhat stable. However his gait is significantly abnormal. Patient's computed tomography scan of the head also revealed possibility of hydrocephalus. Suggest diagnostic and therapeutic lumbar puncture to assess for gait improvement, which may suggest NPH (as I do not have hospital privileges for lumbar puncture as yet). Patient has a neurologist Dr. Santamaria, who can initiate lumbar puncture and assess for any clinical improvement following the procedure. Also would suggest referral to neurosurgery to evaluate for possible NPH. Patient had a normal carotid Doppler. 2-D echo has been done and results are pending. We will also check an EEG. Continue aspirin 81 mg daily for now. PT OT evaluate gait. Patient will be cleared for discharge, if cleared by PT OT and above tests are normal. Discuss with Dr. Mar, patient's PCP, who agreed with the management.
[2018-10-28] MEDS ORDERED: ACETAMINOPHEN TAB 325 MG TAB PO PRN (18:15)
--- NOTE | 2018-10-28 18:41 | ECHOF ---
Referral Reason:presyncope/syncope/TIA MEASUREMENTS -------- HEIGHT: 177.8 cm WEIGHT: 103.9 kg BP: 144/77 IVSd: 1.0 cm (0.6 - 1.1) LVIDd: 4.7 cm (3.9 - 5.3) LVPWd: 0.9 cm (0.6 - 1.1) IVSs: 1.4 cm LVIDs: 1.4 cm LVPWs: 1.3 cm LAESV Index (A-L): 18.64 ml/m MV E Anjel: 0.75 m/s MV DecT: 333 ms MV A Anjel: 0.79 m/s MV E/A Ratio: 0.95 AR PHT: 803 ms RAP: 5.00 mmHg RVSP: 14.24 mmHg FINDINGS -------- Sinus rhythm. This was a technically difficult study with suboptimal parasternal views. Suboptimal image quality - poor subcostal views. The left ventricular size is normal. Left ventricular wall thickness is normal. Overall left vent ricular systolic function is normal with, an EF between 55 - 60 %. The RV was not well visualized. Normal LA size by volume 22+/-6 ml/m2. The right atrium was not well visualized. Interatrial and interventricular septum intact. The aortic valve is trileaflet and appears structurally normal. There is mild aortic regurgitation. The mitral valve leaflets are mildly thickened. There is trace mitral regurgitation. Trace tricuspid regurgitation present. The right ventricular systolic pressure, as measured by Dopp ler, is 14.24mmHg. There is no pulmonic regurgitation present. The aortic root size is normal. IVC Not well visulized. There is no pericardial effusion. CONCLUSIONS -------- 1. Sinus rhythm. 2. This was a technically difficult study with suboptimal parasternal views. 3. Suboptimal image quality - poor subcostal views. 4. The left ventricular size is normal. 5. Left ventricular wall thickness is normal. 6. Overall left ventricular systolic function is normal with, an EF between 55 - 60 %. 7. The RV was not well visualized. 8. Normal LA size by volume 22+/-6 ml/m2. 9. The right atrium was not well visualized. 10. Interatrial and interventricular septum intact. 11. The aortic valve is trileaflet and appears structurally normal. 12. There is mild aortic regurgitation. 13. The mitral valve leaflets are mildly thickened. 14. There is trace mitral regurgitation. 15. Trace tricuspid regurgitation present. 16. The right ventricular systolic pressure, as measured by Doppler, is 14.24mmHg. 17. There is no pulmonic regurgitation present. 18. The aortic root size is normal. 19. IVC Not well visulized. 20. There is no pericardial effusion. ELECTRICAL TROUBLESHOOTER: Ruthy Davenport RDCS
[2018-10-28] MEDS: FAMOTIDINE 20 MG TAB PO SCH (19:31)
[2018-10-28] MEDS: ATENOLOL 25 MG TAB PO SCH (19:31)
[2018-10-29 07:54] VITALS: RESP 16; TEMP 98.1
[2018-10-29] MEDS: ATENOLOL 25 MG TAB PO SCH (08:47)
[2018-10-29] MEDS: CARBIDOPA-LEVODOPA 25-250 MG 1 EACH TAB PO SCH ×2 (08:47→12:57)
[2018-10-29] MEDS: FAMOTIDINE 20 MG TAB PO SCH (08:47)
[2018-10-29] MEDS ORDERED: amLODIPine 5 MG TAB PO SCH (09:00)
[2018-10-29] MEDS ORDERED: VIT A,C & E-LUTEIN-MINERALS 1 EACH TAB PO SCH (09:00)
[2018-10-29] MEDS ORDERED: ASPIRIN 81 MG PO SCH (09:00)
[2018-10-29] MEDS ORDERED: CARBIDOPA-LEVODOPA ER 50-200MG 1 EACH TABLET.ER PO SCH (09:00)
[2018-10-29] MEDS ORDERED: FOLIC ACID 1 MG TAB PO SCH (09:00)
[2018-10-29 12:44] VITALS: BP 120/74; PULSE 60
--- NOTE | 2018-10-29 13:22 | P.PN ---
Subjective Progress Note Date: 10/29/18 Patient is doing much better. Patient desperate to go home. According to patient's , he is back to baseline. Per nursing report, he has slight difficulty getting up, but his home is wheelchair accessible. He was able to walk with his walker at his baseline. No new focal symptoms. Patient had EEG, which was essentially normal. No epileptiform activity was seen. The patient's total cholesterol is 150, LDL 95, HDL 35 and triglycerides 102. Patient is currently on aspirin 81 mg, Norvasc 5 mg, atenolol 25 mg Sinemet 25/250 one tablet twice a day, and Sinemet CR 50/200 one tablet daily. He is also on Pepcid and folic acid daily. Objective - Vital Signs Vital signs: Vital Signs Temp 98.1 F 10/29/18 07:43 Pulse 60 10/29/18 12:00 Resp 16 10/29/18 12:00 BP 120/74 10/29/18 12:00 Pulse Ox 96 10/29/18 12:00 Intake & Output 10/28/18 10/29/18 10/29/18 18:59 06:59 18:59 Intake Total 720 480 Output Total 750 200 Balance 720 -750 280 Weight 108.5 kg Intake: Oral 720 480 Output: Urine 750 200 Other: # Voids 7 1 2 - Exam Patient is alert and awake in no distress. Speech and language functions are normal. Muscle strength is normal. Examination essentially unchanged. - Labs CBC & Chem 7: 10/27/18 15:49 10/27/18 15:49 Assessment and Plan Assessment: * Acute onset of gait difficulty, and syncope/seizure type spell. Rule out TIA. Patient is back to baseline. * Abnormal computed tomography scan of head with evidence of possible hydr ocephalus. Patient has parkinsonism, gait difficulty, memory difficulties, raising possibility of normal pressure hydrocephalus. Plan: Patient has possible normal pressure hydrocephalus. Patient will follow up with his neurologist Dr. Santamaria, who can initiate therapeutic lumbar puncture and assess for any clinical improvement following the procedure. Also would suggest referral to neurosurgery to evaluate for possible NPH as an outpatient. Patient had a normal carotid Doppler. 2-D echo showed EF 55-60%. Left ventricle thickness and size are normal. Right atrial size normal. EEG was normal. No epileptiform activity. Continue aspirin 81 mg daily for now. Per haps increase to 2 baby aspirins daily for possible TIA. His blood pressure is controlled, and LDL is less than 100. PT OT evaluate gait. Patient will be cleared for discharge, if cleared by PT OT and above tests are normal.
--- NOTE | 2018-10-31 11:50 | EEG ---
ELECTROENCEPHALOGRAM REPORT DATE OF SERVICE: 10/28/2018 HISTORY: This is an 88 -year-old male admitted with episode of unresponsiveness, possible syncope. Rule out seizures. The patient with history of Parkinsonism. MEDICATIONS: Current medications include: Amlodipine, oxycodone, aspirin, atenolol, carbidopa/levodopa, folic acid, methotrexate, Ranitidine. EEG SUMMARY: This is a routine 21 channel digital EEG was recorded utilizing the 10-20 international system with bipolar and referential montages. The patient is noted to be awake during the study. Hyperventilation was not done. Photic stimulation was performed. DESCRIPTION OF PROCEDURE: The background consists of well developed, well regulated, moderate amplitude activity in 7 to 8 Hz alpha, which is posterior dominant, moderate amplitude, reactive to eye opening and closing. Photic driving response was not seen with photic stimulation. Hyperventilation was not performed. Different stages of sleep were not seen. No focal or generalized epileptiform activity was seen. IMPRESSION: This is a normal awake EEG for the patient's age. No focal, lateralized or epileptiform activity was seen. MMODL / IJN: [id number] / MARÍA
== END 2018-10-29 13:22 | disposition home or self-care (01) ==
LOC: EC 15:27 → 3SCARD 16:46
PROVIDERS: ADMIT Family Medicine; ATTEND Family Medicine
DX: R55 Syncope and collapse (principal); R56.9 Unspecified convulsions; R26.9 Unspecified abnormalities of gait and mobility; R53.1 Weakness; R94.8 Abnormal results of function studies of other organs and systems; G31.9 Degenerative disease of nervous system, unspecified; G20 Parkinson's disease; G89.29 Other chronic pain; I10 Essential (primary) hypertension; M06.9 Rheumatoid arthritis, unspecified; K21.9 Gastro-esophageal reflux disease without esophagitis; H35.51 Vitreoretinal dystrophy; E66.9 Obesity, unspecified; Z68.32 Body mass index [BMI] 32.0-32.9, adult; I45.10 Unspecified right bundle-branch block; R00.1 Bradycardia, unspecified; R63.0 Anorexia; R26.2 Difficulty in walking, not elsewhere classified; M54.9 Dorsalgia, unspecified; R39.15 Urgency of urination; R41.3 Other amnesia; Z79.82 Long term (current) use of aspirin; Z79.899 Other long term (current) drug therapy; Z79.891 Long term (current) use of opiate analgesic; Z92.3 Personal history of irradiation; Z85.46 Personal history of malignant neoplasm of prostate; Z90.49 Acquired absence of other specified parts of digestive tract; Z87.891 Personal history of nicotine dependence; Z85.9 Personal history of malignant neoplasm, unspecified; Z82.0 Family history of epilepsy and other diseases of the nervous system
CPT/HCPCS: 96360; 96361; 99285; 36415; 94760; 95816; 93005; 93306; 97116; 97162; 92610; 92523; 80061; 80053; 84484; 85025; 85610; 85730; 71046; 93880; 70450; G0378 ×3

== ENCOUNTER 2019-05-11 17:01 | Inpatient (IN) | payer MEDICARE, BC ==
--- NOTE | 2019-05-11 17:06 | ED ---
Fall HPI - General Stated Complaint: Fall, R arm injury Time Seen by Provider: 05/11/19 17:05 Source: RN notes reviewed, old records reviewed Limitations: no limitations - History of Present Illness Initial Comments: This is a 8-year-old male the ER for evaluation patient resents today for fall. Multiple right shoulder injury. Right arm pain. Denies his had no loss of consciousness, fall to 4 days. Pain is been persistent. Patient is not on blood thinners not taking anything significant for pain. 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 Witnessed: yes, by family Place Fall Occurred: home Loss of Consciousness: none Prolonged Down Time?: no Symptoms Prior to Fall: none Location - Extremities: Right: Shoulder, Arm Severity: mild Quality: dull Context: tripped/slipped Associated Symptoms: denies - Related Data Home Medications Medication Instructions Recorded Confirmed Aspirin 81 mg PO DAILY 11/13/13 10/27/18 Methotrexate Sodium [Methotrexate] 12.5 mg PO WE 11/13/13 10/27/18 Ranitidine HCl [Zantac] 150 mg PO BID 11/13/13 10/27/18 amLODIPine BESYLATE/BENAZEPRIL 1 each PO DAILY 11/13/13 10/27/18 [Lotrel 5-10 MG] Vit A/Vit C/Vit E/Zinc/Copper 1 cap PO DAILY 04/23/17 10/27/18 [ICAPS SOFTGEL] oxyCODONE ER [OxyCONTIN] 10 mg PO Q12HR PRN 04/23/17 10/27/18 Folic Acid 1 mg PO DAILY 06/29/17 10/27/18 Acetaminophen [Tylenol] 325 mg PO Q8H 10/27/18 10/27/18 Atenolol [Tenormin] 25 mg PO DAILY 10/27/18 10/27/18 Carbidopa-Levodopa 25-250 mg 1 tab PO BID 10/27/18 10/27/18 [Sinemet 25-250 mg] Carbidopa/Levodopa [Sinemet CR 1 tab PO DAILY 10/27/18 10/27/18 50-200 mg] Ipratropium [place] 0.06%Nasal 1 spray EA NOSTRIL TID 10/27/18 10/27/18 [Atrovent Nasal 0.06%] Allergies Allergy/AdvReac Type Severity Reaction Status Date / Time No Known Allergies Allergy Verified 10/27/18 16:05 Review of Systems ROS Statement: Those systems with pertinent positive or pertinent negative responses have been documented in the HPI. ROS Other: All systems not noted in ROS Statement are negative. 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 prostate cancer-had radiation History of Any Multi-Drug Resistant Organisms: None Reported Past Surgical History: Back Surgery, Cholecystectomy Additional Past Surgical History / Comment(s): [facility]. Past Anesthesia/Blood Transfusion Reactions: No Reported Reaction Smoking Status: Never smoker - Past Family History Mother Family Medical History: No Reported History General Exam General appearance: alert, in no apparent distress Head exam: Present: atraumatic, normocephalic, normal inspection Eye exam: Present: normal appearance, PERRL, EOMI. Absent: scleral icterus, conjunctival injection, periorbital swelling ENT exam: Present: normal exam, mucous membranes moist Neck exam: Present: normal inspection. Absent: tenderness, meningismus, lymphadenopathy Respiratory exam: Present: normal lung sounds bilaterally. Absent: respiratory distress, wheezes, rales, rhonchi, stridor Cardiovascular Exam: Present: regular rate, normal rhythm, normal heart sounds. Absent: systolic murmur, diastolic murmur, rubs, gallop, clicks GI/Abdominal exam: Present: soft, normal bowel sounds. Absent: distended, tenderness, guarding, rebound, rigid Extremities exam: Present: normal inspection, full ROM, normal capillary refill. Absent: tenderness, pedal edema, joint swelling, calf tenderness Back exam: Present: normal inspection Neurological exam: Present: alert, oriented X3, CN II-XII intact Psychiatric exam: Present: normal affect, normal mood Skin exam: Present: warm, dry, intact, normal color. Absent: rash Course Vital Signs 05/11/19 05/11/19 17:06 19:44 Temperature 98.1 F Pulse Rate 74 70 Respiratory 18 18 Rate Blood Pressure 130/58 137/65 O2 Sat by Pulse 96 99 Oximetry - Reevaluation(s) Reevaluation #1: 05/11/19 20:04 Medical record is reviewed Reevaluation #2: 05/11/19 20:04 Patient still with difficulty evaluation weakness and right shoulder pain - Consultations Consultation #1: With Dr. Mar acceptable for admission and possible placement Consultation #2: With Dr. Pantoja who will admit patient for trauma Medical Decision Making - Medical Decision Making 88 male the ER status post fall. Patient is fall with right shoulder pain, right humerus fracture. Multiple recent falls lately weakness with urinary tract infection, will admit for PTOT pain control - Lab Data Result diagrams: 05/11/19 18:05 05/11/19 18:05 Lab Results 05/11/19 05/11/19 05/11/19 Range/Units 18:05 18:05 18:05 WBC 8.2 (3.8-10.6) k/uL RBC 4.11 L (4.30-5.90) m/uL Hgb 13.0 (13.0-17.5) gm/dL Hct 38.9 L (39.0-53.0) % MCV 94.8 (80.0-100.0) fL MCH 31.7 (25.0-35.0) pg MCHC 33.5 (31.0-37.0) g/dL RDW 14.3 (11.5-15.5) % Plt Count 262 (150-450) k/uL Neutrophils % 76 % Lymphocytes % 13 % Monocytes % 8 % Eosinophils % 2 % Basophils % 1 % Neutrophils # 6.2 (1.3-7.7) k/uL Lymphocytes # 1.1 (1.0-4.8) k/uL Monocytes # 0.6 (0-1.0) k/uL Eosinophils # 0.2 (0-0.7) k/uL Basophils # 0.1 (0-0.2) k/uL PT 10.5 (9.0-12.0) sec INR 1.0 (<1.2) APTT 29.9 (22.0-30.0) sec Sodium 138 (137-145) mmol/L Potassium 4.4 (3.5-5.1) mmol/L Chloride 104 (98-107) mmol/L Carbon Dioxide 30 (22-30) mmol/L Anion Gap 4 mmol/L BUN 20 (9-20) mg/dL Creatinine 1.00 (0.66-1.25) mg/dL Est GFR (CKD-EPI)AfAm 79 (>60 ml/min/1.73 sqM) Est GFR (CKD-EPI)NonAf 68 (>60 ml/min/1.73 sqM) Glucose 101 H (74-99) mg/dL Calcium 8.6 (8.4-10.2) mg/dL Phosphorus 3.0 (2.5-4.5) mg/dL Magnesium 2.2 (1.6-2.3) mg/dL Total Bilirubin 0.9 (0.2-1.3) mg/dL AST 18 (17-59) U/L ALT 17 L (21-72) U/L Alkaline Phosphatase 73 (38-126) U/L Creatine Kinase 39 L (55-170) U/L Total Protein 5.6 L (6.3-8.2) g/dL Albumin 3.3 L (3.5-5.0) g/dL Urine Color Urine Appearance (Clear) Urine pH (5.0-8.0) Ur Specific [place] (1.001-1.035) Urine Protein (Negative) Urine Glucose (UA) (Negative) Urine Ketones (Negative) Urine Blood (Negative) Urine Nitrite (Negative) Urine Bilirubin (Negative) Urine Urobilinogen (<2.0) mg/dL Ur Leukocyte Esterase (Negative) Urine RBC (0-5) /hpf Urine WBC (0-5) /hpf Ur Squamous Epith Cells (0-4) /hpf Urine Bacteria (None) /hpf Urine Mucus (None) /hpf 05/11/19 Range/Units 18:50 WBC (3.8-10.6) k/uL RBC (4.30-5.90) m/uL Hgb (13.0-17.5) gm/dL Hct (39.0-53.0) % MCV (80.0-100.0) fL MCH (25.0-35.0) pg MCHC (31.0-37.0) g/dL RDW (11.5-15.5) % Plt Count (150-450) k/uL Neutrophils % % Lymphocytes % % Monocytes % % Eosinophils % % Basophils % % Neutrophils # (1.3-7.7) k/uL Lymphocytes # (1.0-4.8) k/uL Monocytes # (0-1.0) k/uL Eosinophils # (0-0.7) k/uL Basophils # (0-0.2) k/uL PT (9.0-12.0) sec INR (<1.2) APTT (22.0-30.0) sec Sodium (137-145) mmol/L Potassium (3.5-5.1) mmol/L Chloride (98-107) mmol/L Carbon Dioxide (22-30) mmol/L Anion Gap mmol/L BUN (9-20) mg/dL Creatinine (0.66-1.25) mg/dL Est GFR (CKD-EPI)AfAm (>60 ml/min/1.73 sqM) Est GFR (CKD-EPI)NonAf (>60 ml/min/1.73 sqM) Glucose (74-99) mg/dL Calcium (8.4-10.2) mg/dL Phosphorus (2.5-4.5) mg/dL Magnesium (1.6-2.3) mg/dL Total Bilirubin (0.2-1.3) mg/dL AST (17-59) U/L ALT (21-72) U/L Alkaline Phosphatase (38-126) U/L Creatine Kinase (55-170) U/L Total Protein (6.3-8.2) g/dL Albumin (3.5-5.0) g/dL Urine Color Yellow Urine Appearance Clear (Clear) Urine pH 6.0 (5.0-8.0) Ur Specific [place] 1.027 (1.001-1.035) Urine Protein Trace H (Negative) Urine Glucose (UA) Negative (Negative) Urine Ketones Trace H (Negative) Urine Blood Negative (Negative) Urine Nitrite Negative (Negative) Urine Bilirubin Negative (Negative) Urine Urobilinogen <2.0 (<2.0) mg/dL Ur Leukocyte Esterase Large H (Negative) Urine RBC 3 (0-5) /hpf Urine WBC 25 H (0-5) /hpf Ur Squamous Epith Cells 1 (0-4) /hpf Urine Bacteria Rare H (None) /hpf Urine Mucus Occasional H (None) /hpf - EKG Data -: EKG Interpreted by Me (EKG shows normal sinus rhythm rate of 63, VT 104, QRS 120, QTC 462) - Radiology Data Radiology results: report reviewed (Chest x-rays negative for acute disease x- ray right shoulder is positive for right humerus fracture), image reviewed Disposition Clinical Impression: Fall, Right humeral fracture, UTI (urinary tract infection), Weakness Disposition: ADMITTED IP TO THIS [facility] Condition: Fair Instructions (If sedation given, give patient instructions): Fall Prevention for Older Adults (ED) Is patient prescribed a controlled substance at d/c from ED?: No Referrals: Mandeep Mar MD [Primary Care Provider] - 1-2 days
[2019-05-11] MEDS ORDERED: SODIUM CHLORIDE 0.9% 1,000 ML IV STA (17:40)
[2019-05-11 18:14] LABS: Basophils # (A) 0.1 k/uL (0-0.2); Basophils % (A) 1 %; Eosinophils # (A) 0.2 k/uL (0-0.7); Eosinophils % (A) 2 %; HCT 38.9 % (39.0-53.0); Lymphocytes # (A) 1.1 k/uL (1.0-4.8); Lymphocytes % (A) 13 %; MCH 31.7 pg (25.0-35.0); MCHC 33.5 g/dL (31.0-37.0); MCV 94.8 fL (80.0-100.0); Mean Platelet Volume 6.7; Monocytes # (A) 0.6 k/uL (0-1.0); Monocytes % (A) 8 %; Neutrophils # (A) 6.2 k/uL (1.3-7.7); Neutrophils % (A) 76 %; Platelet Count 262 k/uL (150-450); RBC 4.11 m/uL (4.30-5.90); RDW 14.3 % (11.5-15.5); WBC 8.2 k/uL (3.8-10.6)
[2019-05-11 18:23] LABS: Albumin 3.3 g/dL (3.5-5.0); Calcium 8.6 mg/dL (8.4-10.2); Magnesium 2.2 mg/dL (1.6-2.3); Potassium 4.4 mmol/L (3.5-5.1); Total Bilirubin 0.9 mg/dL (0.2-1.3); Total Protein 5.6 g/dL (6.3-8.2)
[2019-05-11 18:26] LABS: Partial Thromboplastin Time 29.9 sec (22.0-30.0); Prothrombin Time 10.5 sec (9.0-12.0)
--- NOTE | 2019-05-11 19:01 | XR ---
EXAMINATION TYPE: XR shoulder complete RT DATE OF EXAM: 05/11/2019 COMPARISON: NONE HISTORY: Pain. Fall. TECHNIQUE: 4 views FINDINGS: There is comminuted fracture of the humeral neck. There multiple fragments of the greater t uberosity of the humerus. There is no dislocation. IMPRESSION: Comminuted humeral neck fracture. No dislocation. Overall no significant displacement.
--- NOTE | 2019-05-11 19:02 | XR ---
EXAMINATION TYPE: XR chest 2V DATE OF EXAM: 05/11/2019 COMPARISON: NONE HISTORY: Pain TECHNIQUE: Frontal and lateral views of the chest are obtained. FINDINGS: There is poor inspiration. There is no heart failure. Heart is slightly enlarged. There is no pulmonary consolidation. IMPRESSION: No active cardiopulmonary disease. Mild cardiomegaly. Inspiration decreased compared to last exam.
[2019-05-11 19:16] LABS: Appearance,Urine Clear (Clear); Bacteria,Urine Rare /hpf; Bilirubin,Urine Negative (Negative); Blood,Urine Negative (Negative); Color,Urine Yellow; Glucose,Urine (UA) Negative (Negative); Ketones,Urine Trace (Negative); Leukocyte Esterase,Urine Large (Negative); Mucus,Urine Occasional /hpf; Nitrite,Urine Negative (Negative); Protein,Urine Trace (Negative); RBC,Urine 3 /hpf (0-5); Specific Gravity,Urine 1.027 (1.001-1.035); Squamous Epithelial Cell,Urine 1 /hpf (0-4); Urobilinogen,Urine <2.0 mg/dL (<2.0)
[2019-05-11] MEDS ORDERED: MORPHINE SULFATE 4 MG/ML SYRINGE IVP STA (20:02)
--- NOTE | 2019-05-11 20:07 | ED ---
Medical Decision Making - Medical Decision Making Procedure note for sling placement - Lab Data Result diagrams: 05/11/19 18:05 05/11/19 18:05 Lab Results 05/11/19 05/11/19 05/11/19 Range/Units 18:05 18:05 18:05 WBC 8.2 (3.8-10.6) k/uL RBC 4.11 L (4.30-5.90) m/uL Hgb 13.0 (13.0-17.5) gm/dL Hct 38.9 L (39.0-53.0) % MCV 94.8 (80.0-100.0) fL MCH 31.7 (25.0-35.0) pg MCHC 33.5 (31.0-37.0) g/dL RDW 14.3 (11.5-15.5) % Plt Count 262 (150-450) k/uL Neutrophils % 76 % Lymphocytes % 13 % Monocytes % 8 % Eosinophils % 2 % Basophils % 1 % Neutrophils # 6.2 (1.3-7.7) k/uL Lymphocytes # 1.1 (1.0-4.8) k/uL Monocytes # 0.6 (0-1.0) k/uL Eosinophils # 0.2 (0-0.7) k/uL Basophils # 0.1 (0-0.2) k/uL PT 10.5 (9.0-12.0) sec INR 1.0 (<1.2) APTT 29.9 (22.0-30.0) sec Sodium 138 (137-145) mmol/L Potassium 4.4 (3.5-5.1) mmol/L Chloride 104 (98-107) mmol/L Carbon Dioxide 30 (22-30) mmol/L Anion Gap 4 mmol/L BUN 20 (9-20) mg/dL Creatinine 1.00 (0.66-1.25) mg/dL Est GFR (CKD-EPI)AfAm 79 (>60 ml/min/1.73 sqM) Est GFR (CKD-EPI)NonAf 68 (>60 ml/min/1.73 sqM) Glucose 101 H (74-99) mg/dL Calcium 8.6 (8.4-10.2) mg/dL Phosphorus 3.0 (2.5-4.5) mg/dL Magnesium 2.2 (1.6-2.3) mg/dL Total Bilirubin 0.9 (0.2-1.3) mg/dL AST 18 (17-59) U/L ALT 17 L (21-72) U/L Alkaline Phosphatase 73 (38-126) U/L Creatine Kinase 39 L (55-170) U/L Total Protein 5.6 L (6.3-8.2) g/dL Albumin 3.3 L (3.5-5.0) g/dL Urine Color Urine Appearance (Clear) Urine pH (5.0-8.0) Ur Specific [place] (1.001-1.035) Urine Protein (Negative) Urine Glucose (UA) (Negative) Urine Ketones (Negative) Urine Blood (Negative) Urine Nitrite (Negative) Urine Bilirubin (Negative) Urine Urobilinogen (<2.0) mg/dL Ur Leukocyte Esterase (Negative) Urine RBC (0-5) /hpf Urine WBC (0-5) /hpf Ur Squamous Epith Cells (0-4) /hpf Urine Bacteria (None) /hpf Urine Mucus (None) /hpf 05/11/19 Range/Units 18:50 WBC (3.8-10.6) k/uL RBC (4.30-5.90) m/uL Hgb (13.0-17.5) gm/dL Hct (39.0-53.0) % MCV (80.0-100.0) fL MCH (25.0-35.0) pg MCHC (31.0-37.0) g/dL RDW (11.5-15.5) % Plt Count (150-450) k/uL Neutrophils % % Lymphocytes % % Monocytes % % Eosinophils % % Basophils % % Neutrophils # (1.3-7.7) k/uL Lymphocytes # (1.0-4.8) k/uL Monocytes # (0-1.0) k/uL Eosinophils # (0-0.7) k/uL Basophils # (0-0.2) k/uL PT (9.0-12.0) sec INR (<1.2) APTT (22.0-30.0) sec Sodium (137-145) mmol/L Potassium (3.5-5.1) mmol/L Chloride (98-107) mmol/L Carbon Dioxide (22-30) mmol/L Anion Gap mmol/L BUN (9-20) mg/dL Creatinine (0.66-1.25) mg/dL Est GFR (CKD-EPI)AfAm (>60 ml/min/1.73 sqM) Est GFR (CKD-EPI)NonAf (>60 ml/min/1.73 sqM) Glucose (74-99) mg/dL Calcium (8.4-10.2) mg/dL Phosphorus (2.5-4.5) mg/dL Magnesium (1.6-2.3) mg/dL Total Bilirubin (0.2-1.3) mg/dL AST (17-59) U/L ALT (21-72) U/L Alkaline Phosphatase (38-126) U/L Creatine Kinase (55-170) U/L Total Protein (6.3-8.2) g/dL Albumin (3.5-5.0) g/dL Urine Color Yellow Urine Appearance Clear (Clear) Urine pH 6.0 (5.0-8.0) Ur Specific [place] 1.027 (1.001-1.035) Urine Protein Trace H (Negative) Urine Glucose (UA) Negative (Negative) Urine Ketones Trace H (Negative) Urine Blood Negative (Negative) Urine Nitrite Negative (Negative) Urine Bilirubin Negative (Negative) Urine Urobilinogen <2.0 (<2.0) mg/dL Ur Leukocyte Esterase Large H (Negative) Urine RBC 3 (0-5) /hpf Urine WBC 25 H (0-5) /hpf Ur Squamous Epith Cells 1 (0-4) /hpf Urine Bacteria Rare H (None) /hpf Urine Mucus Occasional H (None) /hpf Disposition Clinical Impression: Fall, Right humeral fracture, UTI (urinary tract infection), Weakness Disposition: ADMITTED IP TO THIS HOSP Condition: Fair Instructions (If sedation given, give patient instructions): Fall Prevention for Older Adults (ED) Referrals: Mandeep Mar MD [Primary Care Provider] - 1-2 days Procedures - Orthopedic Splinting/Casting Injury #1 Side: right Upper Extremity Injury Location: shoulder, elbow Upper Extremity Immobilizer: sling/shoulder immobilizer
[2019-05-11 22:03] VITALS: BMI 30.5
[2019-05-11] MEDS ORDERED: HYDROcodone/APAP 5-325MG 1 EACH TAB PO PRN (22:33)
[2019-05-11] MEDS: MORPHINE SULFATE 4 MG/ML SYRINGE IVP PRN (23:32)
[2019-05-12] MEDS: MORPHINE SULFATE 4 MG/ML SYRINGE IVP PRN ×2 (05:15→20:28)
[2019-05-12] MEDS: ENTACAPONE 200 MG TAB PO SCH ×2 (08:00→20:28)
[2019-05-12] MEDS: ASPIRIN 81 MG PO SCH (08:00)
[2019-05-12] MEDS: amLODIPine 5 MG TAB PO SCH (08:00)
[2019-05-12] MEDS: CHOLECALCIFEROL 1,000 UNIT TAB PO SCH (08:00)
[2019-05-12] MEDS: FAMOTIDINE 20 MG TAB PO SCH ×2 (08:00→20:28)
[2019-05-12] MEDS: ATENOLOL 25 MG TAB PO SCH (08:00)
[2019-05-12] MEDS: FOLIC ACID 1 MG TAB PO SCH (08:00)
[2019-05-12] MEDS: CYANOCOBALAMIN 500 MCG TAB PO SCH (08:00)
[2019-05-12] MEDS: LISINOPRIL 10 MG TAB PO SCH (08:00)
[2019-05-12] MEDS: CARBIDOPA-LEVODOPA 25-250 MG 1 EACH TAB PO SCH ×2 (08:00→12:44)
--- NOTE | 2019-05-12 08:11 | P.CONS ---
History of Present Illness - Chief Complaint right upper extremity pain - History of Present Illness This is a consultation on an 88-year-old white male essentially admitted for right upper summary comminuted fracture humerus. He's been falling and has an underlying history of Parkinson's disease. Due to the fact of his size and the logistics of living at home, he is appropriately admitted for possible rehab placement and orthopedic evaluation. His pain is fairly well controlled. No significant nausea or vomiting. Review of Systems Constitutional: Denies chills, Denies fever Eyes: denies blurred vision, denies pain Ears, nose, mouth and throat: Denies headache, Denies sore throat Cardiovascular: Denies chest pain, Denies shortness of breath Respiratory: Denies cough Gastrointestinal: Denies abdominal pain, Denies diarrhea, Denies nausea, Denies vomiting Musculoskeletal: Denies myalgias Neurological: Denies numbness, Denies weakness Psychiatric: Denies anxiety, Denies depression Endocrine: Denies fatigue, Denies weight change 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 prostate cancer-had radiation History of Any Multi-Drug Resistant Organisms: None Reported Past Surgical History: Back Surgery, Cholecystectomy Additional Past Surgical History / Comment(s): [facility]. Past Anesthesia/Blood Transfusion Reactions: No Reported Reaction Past Psychological History: No Psychological Hx Reported Smoking Status: Former smoker Past Alcohol Use History: Rare Additional Past Alcohol Use History / Comment(s): quit smoking 10 yrs. ago Past Drug Use History: None Reported - Past Family History Mother Family Medical History: No Reported History Medications and Allergies Home Medications Medication Instructions Recorded Confirmed Type Aspirin 81 mg PO DAILY 11/13/13 05/11/19 History Methotrexate Sodium [Methotrexate] 12.5 mg PO WE 11/13/13 05/11/19 History Ranitidine HCl [Zantac] 150 mg PO BID 11/13/13 05/11/19 History amLODIPine BESYLATE/BENAZEPRIL 1 cap PO DAILY 11/13/13 05/11/19 History [Lotrel 5-10 MG] Folic Acid 1 mg PO DAILY 06/29/17 05/11/19 History Atenolol [Tenormin] 25 mg PO DAILY 10/27/18 05/11/19 History Carbidopa-Levodopa 25-250 mg 1 tab PO BID@0800,1300 10/27/18 05/11/19 History [Sinemet 25-250 mg] Cholecalciferol (Vitamin D3) 2,000 unit PO DAILY 05/11/19 05/11/19 History [Vitamin D3] Cyanocobalamin (Vitamin B-12) 1,000 mcg PO DAILY 05/11/19 05/11/19 History [Vitamin B-12] Entacapone 200 mg PO BID 05/11/19 05/11/19 History HYDROcodone/APAP 5-325MG [[place] 1 tab PO Q6H PRN 05/11/19 05/11/19 History 5-325] Vit C/E/Zn/Coppr/Lutein/Zeaxan 1 cap PO BID 05/11/19 05/11/19 History [Preservision Areds 2 Softgel] oxyCODONE HCL [OxyIR] 5 mg PO Q6H PRN 05/11/19 05/11/19 History Allergies Allergy/AdvReac Type Severity Reaction Status Date / Time No Known Allergies Allergy Verified 05/11/19 20:19 Physical Exam Vitals: Vital Signs Temp Pulse Pulse Resp BP BP Pulse Ox 05/12/19 04:45 97.8 F 69 16 144/69 97 05/11/19 21:15 97.9 F 70 16 132/71 97 05/11/19 19:44 70 18 137/65 99 05/11/19 17:06 98.1 F 74 18 130/58 96 Intake and Output 05/11/19 05/12/19 05/12/19 22:59 06:59 14:59 Output Total 200 Balance -200 Output: Urine 200 Other: Voiding Method Urinal Weight 104.326 kg - Constitutional General appearance: no acute distress - EENT Eyes: EOMI - Neck Neck: no lymphadenopathy - Respiratory Respiratory: bilateral: CTA - Cardiovascular Rhythm: regular Heart sounds: normal: S1, S2 Abnormal Heart Sounds: no S3 Gallop - Gastrointestinal General gastrointestinal: soft, no tenderness - Integumentary Integumentary: cellulitis - Musculoskeletal Musculoskeletal: gait normal Results CBC & Chem 7: 05/11/19 18:05 05/11/19 18:05 Labs: Abnormal Lab Results - Last 24 Hours (Table) 05/11/19 05/11/19 05/11/19 Range/Units 18:05 18:05 18:50 RBC 4.11 L (4.30-5.90) m/uL Hct 38.9 L (39.0-53.0) % Glucose 101 H (74-99) mg/dL ALT 17 L (21-72) U/L Creatine Kinase 39 L (55-170) U/L Total Protein 5.6 L (6.3-8.2) g/dL Albumin 3.3 L (3.5-5.0) g/dL Urine Protein Trace H (Negative) Urine Ketones Trace H (Negative) Ur Leukocyte Esterase Large H (Negative) Urine WBC 25 H (0-5) /hpf Urine Bacteria Rare H (None) /hpf Urine Mucus Occasional H (None) /hpf Microbiology - Last 24 Hours (Table) 05/11/19 18:50 Urine Culture - Preliminary Urine,Voided Assessment and Plan (1) Fall Current Visit: Yes Status: Acute Code(s): W19.XXXA - UNSPECIFIED FALL, INITIAL ENCOUNTER SNOMED Code(s): 6946103 (2) Right humeral fracture Current Visit: Yes Status: Acute Code(s): S42.301A - UNSP FRACTURE OF SHAFT OF HUMERUS, RIGHT ARM, INIT SNOMED Code(s): 64179281 (3) Weakness Current Visit: Yes Status: Acute Code(s): R53.1 - WEAKNESS SNOMED Code(s): 36805103 (4) Parkinsons disease Current Visit: No Status: Acute Code(s): G20 - PARKINSON'S DISEASE SNOMED Code(s): 78031714 (5) Rheumatoid arthritis Current Visit: No Status: Acute Code(s): M06.9 - RHEUMATOID ARTHRITIS, UNSPECIFIED SNOMED Code(s): 85469541 Plan: We will go ahead and follow for medical management. Appropriate pain control. Consul rehab per orthopedics. Discharge planning for possible placement. Time with Patient: Less than 30
--- NOTE | 2019-05-12 09:43 | P.HPOR ---
<Carrie Salazar Kierra - Last Filed: 05/12/19 10:39> History of Present Illness H&P Date: 05/12/19 Chief Complaint: Right shoulder pain The patient is a pleasant 88-year-old male with a history of Parkinson's, hypertension, rheumatoid arthritis and prostate cancer who presented to the emergency department yesterday with right shoulder and arm pain. He states he fell a week ago Wednesday and has had right arm pain since. Patient has had multiple recent falls and the patient was admitted for skilled rehab placement. He states he lives at home with his . Today, the patient was evaluated while sitting in a recliner chair. He appears to be comfortable. Sling is in place. No other complaints at this time. 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 prostate cancer-had radiation History of Any Multi-Drug Resistant Organisms: None Reported Past Surgical History: Back Surgery, Cholecystectomy Additional Past Surgical History / Comment(s): [facility]. Past Anesthesia/Blood Transfusion Reactions: No Reported Reaction Past Psychological History: No Psychological Hx Reported Smoking Status: Former smoker Past Alcohol Use History: Rare Additional Past Alcohol Use History / Comment(s): quit smoking 10 yrs. ago Past Drug Use History: None Reported - Past Family History Mother Family Medical History: No Reported History Medications and Allergies Home Medications Medication Instructions Recorded Confirmed Type Aspirin 81 mg PO DAILY 11/13/13 05/11/19 History Methotrexate Sodium [Methotrexate] 12.5 mg PO WE 11/13/13 05/11/19 History Ranitidine HCl [Zantac] 150 mg PO BID 11/13/13 05/11/19 History amLODIPine BESYLATE/BENAZEPRIL 1 cap PO DAILY 11/13/13 05/11/19 History [Lotrel 5-10 MG] Folic Acid 1 mg PO DAILY 06/29/17 05/11/19 History Atenolol [Tenormin] 25 mg PO DAILY 10/27/18 05/11/19 History Carbidopa-Levodopa 25-250 mg 1 tab PO BID@0800,1300 10/27/18 05/11/19 History [Sinemet 25-250 mg] Cholecalciferol (Vitamin D3) 2,000 unit PO DAILY 05/11/19 05/11/19 History [Vitamin D3] Cyanocobalamin (Vitamin B-12) 1,000 mcg PO DAILY 05/11/19 05/11/19 History [Vitamin B-12] Entacapone 200 mg PO BID 05/11/19 05/11/19 History HYDROcodone/APAP 5-325MG [[place] 1 tab PO Q6H PRN 05/11/19 05/11/19 History 5-325] Vit C/E/Zn/Coppr/Lutein/Zeaxan 1 cap PO BID 05/11/19 05/11/19 History [Preservision Areds 2 Softgel] oxyCODONE HCL [OxyIR] 5 mg PO Q6H PRN 05/11/19 05/11/19 History Allergies Allergy/AdvReac Type Severity Reaction Status Date / Time No Known Allergies Allergy Verified 05/11/19 20:19 Physical Examination The patient is a pleasant 88-year-old male who is in no acute distress. He is alert and oriented 3. Exam of the cervical spine reveals no pain upon palpation or range of motion. No step-offs noted. Exam of the right upper extremity reveals significant ecchymosis to the upper arm, elbow, forearm, and wrist. There is pain upon palpation to the anterior and lateral shoulder. Range of motion of the shoulder was not tested at this time. No pain and normal range of motion of the right elbow, wrist, hand, and fingers. Exam of the bilateral lower extremities reveal no obvious deformities or pain upon range of motion. No numbness present. Neurological and circulatory status is intact. Results - Labs Labs: Abnormal Lab Results - Last 24 Hours (Table) 05/11/19 05/11/19 05/11/19 Range/Units 18:05 18:05 18:50 RBC 4.11 L (4.30-5.90) m/uL Hct 38.9 L (39.0-53.0) % Glucose 101 H (74-99) mg/dL ALT 17 L (21-72) U/L Creatine Kinase 39 L (55-170) U/L Total Protein 5.6 L (6.3-8.2) g/dL Albumin 3.3 L (3.5-5.0) g/dL Urine Protein Trace H (Negative) Urine Ketones Trace H (Negative) Ur Leukocyte Esterase Large H (Negative) Urine WBC 25 H (0-5) /hpf Urine Bacteria Rare H (None) /hpf Urine Mucus Occasional H (None) /hpf Microbiology - Last 24 Hours (Table) 05/11/19 18:50 Urine Culture - Preliminary Urine,Voided H & H 05/11/19 Range/Units 18:05 Hgb 13.0 (13.0-17.5) gm/dL Hct 38.9 L (39.0-53.0) % Coagulation 05/11/19 Range/Units 18:05 INR 1.0 (<1.2) Result Diagrams: 05/11/19 18:05 05/11/19 18:05 - Diagnostic results Shoulder x-ray: image reviewed (Four views of the right shoulder dated 07/11/2018 reveals a comminuted humeral neck fracture. No shoulder dislocation noted. There are multiple fragments of the greater tuberosity. Fracture alignment is satisfactory.) Assessment and Plan (1) Fall Current Visit: Yes Status: Acute Code(s): W19.XXXA - UNSPECIFIED FALL, INITIAL ENCOUNTER SNOMED Code(s): 2725699 (2) Right humeral fracture Current Visit: Yes Status: Acute Code(s): S42.301A - UNSP FRACTURE OF SHAFT OF HUMERUS, RIGHT ARM, INIT SNOMED Code(s): 49052804 (3) Weakness Current Visit: Yes Status: Acute Code(s): R53.1 - WEAKNESS SNOMED Code(s): 59219483 (4) Parkinsons disease Current Visit: No Status: Acute Code(s): G20 - PARKINSON'S DISEASE SNOMED Code(s): 22982698 (5) Rheumatoid arthritis Current Visit: No Status: Acute Code(s): M06.9 - RHEUMATOID ARTHRITIS, UNSPECIFIED SNOMED Code(s): 97322374 Plan: The clinical and x-ray findings were discussed with the patient. The case was also discussed at length with Dr. Pantoja. No surgical intervention is planned at this time. Continue pain control. Continue arm sling, a new one has been ordered. Physical and occupational therapy has been ordered. The patient will likely need skilled rehab placement. Social work has been consulted as well. We'll continue to follow patient closely and make further recommendations as needed. <Garett Pantoja - Last Filed: 05/12/19 19:47> Results - Labs Labs: Microbiology - Last 24 Hours (Table) 05/11/19 18:50 Urine Culture - Final Urine,Voided H & H 05/11/19 Range/Units 18:05 Hgb 13.0 (13.0-17.5) gm/dL Hct 38.9 L (39.0-53.0) % Coagulation 05/11/19 Range/Units 18:05 INR 1.0 (<1.2) Result Diagrams: 05/11/19 18:05 05/11/19 18:05 Assessment and Plan Plan: Discussed with YOBANY Salazar and agree with above. I subsequently saw and examined the patient myself. S: The patient localizes the pain to the proximal humerus and denies any other significant injuries. Presently, the pain is well controlled. O: Moderate ecchymosis and edema throughout the arm, forearm and hand. Appropriate tenderness to palpation at the proximal humerus. A: 1. Minimally displaced 3-part right proximal humerus fracture 2. Parkinson's disease P: I discussed the clinical and radiographic findings in detail with the patient and his . We discussed the pertinent anatomy and fracture pattern. I explained that the fracture is well aligned and recommended nonsurgical treatment. He may wear the sling when out of bed and ambulating if he wishes but this is not required. It should be removed in bed or at rest. Encouraged hand wrist and elbow range of motion. Begin daily pendulums. Continue PRN pain management. Questions were invited and answered. They expressed understanding and agreement with this plan. Thank you for allowing us to participate in this patient's care. Garett Pantoja D.O. [facility]
[2019-05-13] MEDS: MORPHINE SULFATE 4 MG/ML SYRINGE IVP PRN ×3 (00:46→22:45)
[2019-05-13] MEDS: CYANOCOBALAMIN 500 MCG TAB PO SCH (07:38)
[2019-05-13] MEDS: CHOLECALCIFEROL 1,000 UNIT TAB PO SCH (07:38)
[2019-05-13] MEDS: amLODIPine 5 MG TAB PO SCH (07:38)
[2019-05-13] MEDS: FOLIC ACID 1 MG TAB PO SCH (07:38)
[2019-05-13] MEDS: ATENOLOL 25 MG TAB PO SCH (07:38)
[2019-05-13] MEDS: LISINOPRIL 10 MG TAB PO SCH (07:38)
[2019-05-13] MEDS: ASPIRIN 81 MG PO SCH (07:38)
[2019-05-13] MEDS: FAMOTIDINE 20 MG TAB PO SCH ×2 (07:38→22:08)
[2019-05-13] MEDS: ENTACAPONE 200 MG TAB PO SCH ×2 (07:44→22:08)
[2019-05-13] MEDS: CARBIDOPA-LEVODOPA 25-250 MG 1 EACH TAB PO SCH ×2 (07:44→13:06)
--- NOTE | 2019-05-13 13:00 | P.PN ---
Subjective Progress Note Date: 05/13/19 Principal diagnosis: Recurrent falls and Right humerus fracture Covering Dr. Mar over the weekend. Mr. Vasquez is a pleasant 88-year-old male with a past medical history of rhe umatoid arthritis, hypertension, prostate cancer status post radiation therapy, Parkinson's disease admitted to the hospital for right upper extremity comminuted fractures of the humerus. Patient has been having recurrent falls and after that he complained of pain in his right upper extremity so brought into the hospital where he was found to have a fracture of his humerus. The patient has been evaluated by orthopedic services and they recommended conservative management with a sling. So currently patient is waiting for rehab placement. On review of systems: Constitutional: Denies having any fevers chills or rigors Cardiovascular: No chest pain or palpitations Respiratory: No cough or difficulty in breathing Gastrointestinal: No abdominal pain nausea vomiting or diarrhea He reports that he has pain in his right upper extremity near the area of fracture. Patient's medications have been reviewed. Active Medications Hydrocodone Bitart/Acetaminophen ([place] 5-325) 1 each PO Q6H PRN PRN Reason: Pain Amlodipine Besylate (Norvasc) 5 mg PO DAILY [facility] Last Admin: 05/13/19 07:38 Dose: 5 mg Documented by: Aspirin (Aspirin) 81 mg PO DAILY [facility] Last Admin: 05/13/19 07:38 Dose: 81 mg Documented by: Atenolol (Tenormin) 25 mg PO DAILY [facility] Last Admin: 05/13/19 07:38 Dose: 25 mg Documented by: Carbidopa/Levodopa (Sinemet 25-250) 1 each PO BID@0800,1300 [facility] Last Admin: 05/13/19 07:44 Dose: 1 each Documented by: Cholecalciferol (Vitamin D3 (25 Mcg = 1000 Iu)) 2,000 unit PO DAILY [facility] Last Admin: 05/13/19 07:38 Dose: 2,000 unit Documented by: Cyanocobalamin (Vitamin B-12) 1,000 mcg PO DAILY [facility] Last Admin: 05/13/19 07:38 Dose: 1,000 mcg Documented by: Entacapone (Comtan) 200 mg PO BID [facility] Last Admin: 05/13/19 07:44 Dose: 200 mg Documented by: Famotidine (Pepcid) 20 mg PO BID [facility] Last Admin: 05/13/19 07:38 Dose: 20 mg Documented by: Folic Acid (Folic Acid) 1 mg PO DAILY [facility] Last Admin: 05/13/19 07:38 Dose: 1 mg Documented by: Ceftriaxone Sodium 1 gm/ (Sodium Chloride) 50 mls @ 100 mls/hr IVPB Q24HR [facility] Last Admin: 05/13/19 07:37 Dose: 100 mls/hr Documented by: Lisinopril (Zestril) 10 mg PO DAILY [facility] Last Admin: 05/13/19 07:38 Dose: 10 mg Documented by: Methotrexate (Methotrexate) 12.5 mg PO [facility] Morphine Sulfate (Morphine Sulfate (Inj)) 4 mg IVP Q4HR PRN PRN Reason: Pain Last Admin: 05/13/19 05:28 Dose: 4 mg Documented by: Oxycodone HCl (Oxyir) 5 mg PO Q6H PRN PRN Reason: Pain Objective - Vital Signs Vital signs: Vital Signs Temp 97.9 F 05/13/19 05:04 Pulse 74 05/13/19 05:04 Resp 16 05/13/19 08:16 BP 129/70 05/13/19 05:04 Pulse Ox 95 05/13/19 05:04 Intake & Output 05/12/19 05/13/19 05/13/19 18:59 06:59 18:59 Intake Total 170 300 Output Total 250 275 Balance -80 -275 300 Intake: IV 170 Sodium Chloride 0.9% 1, 120 000 ml @ 100 mls/hr IV . Q10H [facility] Rx#:[id number] cefTRIAXone 1 gm In 50 Sodium Chloride 0.9% 50 ml @ 100 mls/hr IVPB Q24HR [facility] Rx#:[id number] Oral 300 Output: Urine 250 275 Other: Voiding Method Urinal # Voids 3 2 1 - Exam General appearance: alert, in no apparent distress HENT - no pallor, no icterus. No JVD. Respiratory exam: normal lung sounds bilaterally. Absent: respiratory distress, wheezes, rales, rhonchi, stridor Cardiovascular Exam: regular rate, normal rhythm, normal heart sounds. Absent: systolic murmur, diastolic murmur, rubs, gallop, clicks GI/Abdominal exam: soft, normal bowel sounds. Absent: distended, tenderness, guarding, rebound, rigid Extremities exam: No pedal edema Neurological exam: alert, oriented X3, no focal neurological deficits. - Labs CBC & Chem 7: 05/11/19 18:05 05/11/19 18:05 Labs: Microbiology - Last 24 Hours (Table) 05/11/19 20:37 Blood Culture - Preliminary Blood No Growth after 24 hours 05/11/19 18:50 Urine Culture - Final Urine,Voided Assessment and Plan Assessment: ASSESSMENT Recurrent falls Right humeral fracture Chronic debility Parkinson's disease Rheumatoid arthritis Hypertension History of prostate cancer status post radiation therapy PLAN: Patient is being managed on [place] for his pain. Orthopedic suggested conservative management for his fracture. Awaiting rehab placement. Further recommendations depending on the progress of the patient.
--- NOTE | 2019-05-13 14:44 | P.PN ---
Subjective Progress Note Date: 05/13/19 The patient is an 88-year-old male with a history of Parkinson's, hypertension, rheumatoid arthritis and prostate cancer who presented to the emergency department 05/11/19 with right shoulder and arm pain. He states he fell a week ago Wednesday and has had right arm pain since. X-rays in the ED revealed a right proximal humerus fracture. He was admitted to the hospital for possible rehab placement. He has had multiple falls the past week. He lives at home with his . Patient is examined bedside this morning. He states his arm and shoulder pain is well-controlled currently. He is awaiting physical therapy today. He states he wore the sling the majority of the day yesterday, but does not have it on currently. He denies any new complaints today. Vital signs stable. Objective - Vital Signs Vital signs: Vital Signs Temp 97.9 F 05/13/19 05:04 Pulse 74 05/13/19 05:04 Resp 16 05/13/19 08:16 BP 129/70 05/13/19 05:04 Pulse Ox 95 05/13/19 05:04 Intake & Output 05/12/19 05/13/19 05/13/19 18:59 06:59 18:59 Intake Total 170 300 Output Total 250 275 Balance -80 -275 300 Intake: IV 170 Sodium Chloride 0.9% 1, 120 000 ml @ 100 mls/hr IV . Q10H STA Rx#:[id number] cefTRIAXone 1 gm In 50 Sodium Chloride 0.9% 50 ml @ 100 mls/hr IVPB Q24HR REBEKAH Rx#:[id number] Oral 300 Output: Urine 250 275 Other: Voiding Method Urinal # Voids 3 2 1 - Exam On examination, the patient is sitting up in bed in no acute distress. He is alert and oriented 3.On inspection of the right upper extremity, there is significant ecchymosis to the upper arm, elbow, forearm, and wrist. There is pain upon palpation to the anterior and lateral shoulder. Range of motion of the shoulder was not tested at this time. No pain and normal range of motion of the right elbow, wrist, hand, and fingers. Exam of the bilateral lower extremities reveal no obvious deformities or pain upon range of motion. No numbness present. Neurological and circulatory status is intact. The right upper extremity is warm and well perfused, radial pulse palpable. - Labs CBC & Chem 7: 05/11/19 18:05 05/11/19 18:05 Labs: Microbiology - Last 24 Hours (Table) 05/11/19 20:37 Blood Culture - Preliminary Blood No Growth after 24 hours 05/11/19 18:50 Urine Culture - Final Urine,Voided Assessment and Plan Assessment: Proximal humerus fracture, right. Parkinson's disease. Plan: - No surgical intervention is planned at this time. He may continue to wear the sling for comfort, although it is not required. Patient is to remove the sling in bed or at rest. - Recommended the patient continue with elbow, wrist, and hand [id number]. He should continue with daily pendulum exercises. - Physical and occupation therapy. - Continue pain management. - We will continue to follow the patient while he remains inpatient and make recommendations as needed.
[2019-05-13] MEDS: ENOXAPARIN 40 MG/0.4 ML SYRINGE SQ SCH (22:08)
[2019-05-14] MEDS: MORPHINE SULFATE 4 MG/ML SYRINGE IVP PRN (04:31)
[2019-05-14 07:07] LABS: Basophils # (A) 0.1 k/uL (0-0.2); Basophils % (A) 1 %; Eosinophils # (A) 0.3 k/uL (0-0.7); Eosinophils % (A) 5 %; HCT 37.7 % (39.0-53.0); HGB 11.9 gm/dL (13.0-17.5); Lymphocytes # (A) 1.3 k/uL (1.0-4.8); Lymphocytes % (A) 19 %; MCH 29.8 pg (25.0-35.0); MCHC 31.7 g/dL (31.0-37.0); MCV 94.2 fL (80.0-100.0); Mean Platelet Volume 7.1; Monocytes # (A) 0.5 k/uL (0-1.0); Monocytes % (A) 7 %; Neutrophils # (A) 4.7 k/uL (1.3-7.7); Neutrophils % (A) 67 %; Platelet Count 256 k/uL (150-450); RDW 14.1 % (11.5-15.5)
[2019-05-14 07:14] LABS: African American GFR (CKD) >90 (>60 ml/min/1.73 sqM); Anion Gap 4 mmol/L; Blood Urea Nitrogen 16 mg/dL (9-20); Calcium 8.3 mg/dL (8.4-10.2); Carbon Dioxide 29 mmol/L (22-30); Chloride 106 mmol/L (98-107); Glucose 98 mg/dL (74-99); Non-African American GFR(CKD) 83 (>60 ml/min/1.73 sqM); Potassium 4.1 mmol/L (3.5-5.1); Sodium 139 mmol/L (137-145)
[2019-05-14] MEDS: FOLIC ACID 1 MG TAB PO SCH (07:15)
[2019-05-14] MEDS: CARBIDOPA-LEVODOPA 25-250 MG 1 EACH TAB PO SCH ×2 (07:15→12:56)
[2019-05-14] MEDS: FAMOTIDINE 20 MG TAB PO SCH ×2 (07:15→21:27)
[2019-05-14] MEDS: LISINOPRIL 10 MG TAB PO SCH (07:15)
[2019-05-14] MEDS: ENTACAPONE 200 MG TAB PO SCH ×2 (07:15→21:27)
[2019-05-14] MEDS: CHOLECALCIFEROL 1,000 UNIT TAB PO SCH (07:15)
[2019-05-14] MEDS: ASPIRIN 81 MG PO SCH (07:15)
[2019-05-14] MEDS: ATENOLOL 25 MG TAB PO SCH (07:15)
[2019-05-14] MEDS: CYANOCOBALAMIN 500 MCG TAB PO SCH (07:15)
[2019-05-14] MEDS: amLODIPine 5 MG TAB PO SCH (07:15)
[2019-05-14] MEDS: ENOXAPARIN 40 MG/0.4 ML SYRINGE SQ SCH (07:16)
--- NOTE | 2019-05-14 11:06 | P.PN ---
<Wilian Portillo - Last Filed: 05/14/19 11:02> Subjective Progress Note Date: 05/14/19 The patient is an 88-year-old male with a history of Parkinson's, hypertension, rheumatoid arthritis and prostate cancer who presented to the emergency department 05/11/19 with right shoulder and arm pain. He states he fell a week ago Wednesday and has had right arm pain since. X-rays in the ED revealed a right proximal humerus fracture. He was admitted to the hospital for possible rehab placement. He has had multiple falls the past week. He lives at home with his . 05/14/19: Patient is examined bedside. Patient states his pain located in the right proximal arm is well-controlled. He appears comfortable in bed today. He worked with physical therapy yesterday. He is awaiting placement to a rehab center. He currently is not using the sling while in bed. He has no new complaints today. Patient denies any new orthopedic complaints today. Objective - Vital Signs Vital signs: Vital Signs Temp 97.8 F 05/14/19 05:08 Pulse 66 05/14/19 05:08 Resp 16 05/14/19 05:08 BP 144/72 05/14/19 05:08 Pulse Ox 96 05/14/19 05:08 Intake & Output 05/13/19 05/14/19 05/14/19 18:59 06:59 18:59 Intake Total 600 300 Output Total 300 Balance 300 300 Intake: Oral 600 300 Output: Urine 300 Other: Voiding Method Urinal Urinal Urinal # Voids 1 2 1 - Exam On examination, the patient is sitting up in bed in no acute distress. He is alert and oriented 3. On inspection of the right upper extremity, there is significant ecchymosis to the upper arm, elbow, forearm, and wrist. There is pain upon palpation to the anterior and lateral shoulder. Range of motion of the shoulder was not tested at this time. No pain and normal range of motion of the right elbow, wrist, hand, and fingers. No numbness present. Neurological and circulatory status is intact. The right upper extremity is warm and well perfused, radial pulse palpable. - Labs CBC & Chem 7: 05/14/19 06:39 05/14/19 06:39 Labs: Abnormal Lab Results - Last 24 Hours (Table) 05/14/19 05/14/19 Range/Units 06:39 06:39 RBC 4.00 L (4.30-5.90) m/uL Hgb 11.9 L (13.0-17.5) gm/dL Hct 37.7 L (39.0-53.0) % Calcium 8.3 L (8.4-10.2) mg/dL Microbiology - Last 24 Hours (Table) 05/11/19 20:37 Blood Culture - Preliminary Blood No Growth after 48 hours Assessment and Plan Assessment: Proximal humerus fracture, right. Parkinson's disease. Plan: - No surgical intervention is planned at this time. He may continue to wear the sling for comfort, although it is not required. Patient is to remove the sling in bed or at rest. - Recommended the patient continue with elbow, wrist, and hand [id number]. He should continue with daily pendulum exercises. - Physical and occupation therapy. - Continue pain management. - We will continue to follow the patient while he remains inpatient and make recommendations as needed. - Anticipate discharge tomorrow to rehab. Patient will follow-up in the office with Dr. Pantoja in two weeks after discharge for repeat x-rays. Patient discussed with Dr. Pantoja. <Garett Pantoja - Last Filed: 05/14/19 14:37> Objective - Vital Signs Vital signs: Vital Signs Temp 97.8 F 05/14/19 05:08 Pulse 66 05/14/19 05:08 Resp 16 05/14/19 05:08 BP 144/72 05/14/19 05:08 Pulse Ox 96 05/14/19 05:08 Intake & Output 05/13/19 05/14/19 05/14/19 18:59 06:59 18:59 Intake Total 600 300 Output Total 300 Balance 300 300 Intake: Oral 600 300 Output: Urine 300 Other: Voiding Method Urinal Urinal Urinal # Voids 1 2 4 - Labs CBC & Chem 7: 05/14/19 06:39 05/14/19 06:39 Labs: Abnormal Lab Results - Last 24 Hours (Table) 05/14/19 05/14/19 Range/Units 06:39 06:39 RBC 4.00 L (4.30-5.90) m/uL Hgb 11.9 L (13.0-17.5) gm/dL Hct 37.7 L (39.0-53.0) % Calcium 8.3 L (8.4-10.2) mg/dL Microbiology - Last 24 Hours (Table) 05/11/19 20:37 Blood Culture - Preliminary Blood No Growth after 48 hours Assessment and Plan Plan: Discussed with SILVIA Portillo and agree with above. The patient was also seen and examined by me. S: He states that the pain is minimal and well controlled at rest but increases during transfers. He denies any specific issues or concerns. O: Persistent, resolving ecchymosis in the distal arm and forearm. The edema in the hand, wrist and forearm has improved. Appropriate pain with passive abduction. A: 1. Mildly displaced right proximal humerus fracture 2. Parkinson's disease P: Continue with previous plan as outlined above. The patient is permitted to use the hand for normal activities that do not involve reaching, lifting, pushing or pulling. Follow outpatient in 2 weeks for reevaluation and repeat x-rays. Contact the office in the interim with any questions, concerns or problems. Garett Pantoja D.O. [facility]
--- NOTE | 2019-05-14 14:07 | P.PN ---
Subjective Progress Note Date: 05/14/19 Principal diagnosis: Recurrent falls and Right humerus fracture Covering Dr. Mar over the weekend. Mr. Vasquez is a pleasant 88-year-old male with a past medical history of rheu matoid arthritis, hypertension, prostate cancer status post radiation therapy, Parkinson's disease admitted to the hospital for right upper extremity comminuted fractures of the humerus. Patient has been having recurrent falls and after that he complained of pain in his right upper extremity so brought into the hospital where he was found to have a fracture of his humerus. The patient has been evaluated by orthopedic services and they recommended conservative management with a sling. So currently patient is waiting for rehab placement. On 05/14/2019 - overnight active issues reported by nursing staff. Patient denies having any complaints. Physical therapy is on board and helping him to move around. He did much better today, they got him up in a wheelchair. Patient is wearing a sling for the right humeral fracture. He denies having any fevers chills or rigors. No cough or difficulty in breathing. No chest pain or palpation. No abdominal pain nausea vomiting or diarrhea. No dysuria or hematuria. Patient vitals and labs within normal limits from this morning. Active Medications Hydrocodone Bitart/Acetaminophen ([place] 5-325) 1 each PO Q6H PRN PRN Reason: Pain Amlodipine Besylate (Norvasc) 5 mg PO DAILY [facility] Last Admin: 05/14/19 07:15 Dose: 5 mg Documented by: Aspirin (Aspirin) 81 mg PO DAILY [facility] Last Admin: 05/14/19 07:15 Dose: 81 mg Documented by: Atenolol (Tenormin) 25 mg PO DAILY [facility] Last Admin: 05/14/19 07:15 Dose: 25 mg Documented by: Carbidopa/Levodopa (Sinemet 25-250) 1 each PO BID@0800,1300 [facility] Last Admin: 05/14/19 12:56 Dose: 1 each Documented by: Cholecalciferol (Vitamin D3 (25 Mcg = 1000 Iu)) 2,000 unit PO DAILY [facility] Last Admin: 05/14/19 07:15 Dose: 2,000 unit Documented by: Cyanocobalamin (Vitamin B-12) 1,000 mcg PO DAILY [facility] Last Admin: 05/14/19 07:15 Dose: 1,000 mcg Documented by: Enoxaparin Sodium (Lovenox) 40 mg SQ DAILY [facility] Last Admin: 05/14/19 07:16 Dose: 40 mg Documented by: Entacapone (Comtan) 200 mg PO BID [facility] Last Admin: 05/14/19 07:15 Dose: 200 mg Documented by: Famotidine (Pepcid) 20 mg PO BID [facility] Last Admin: 05/14/19 07:15 Dose: 20 mg Documented by: Folic Acid (Folic Acid) 1 mg PO DAILY [facility] Last Admin: 05/14/19 07:15 Dose: 1 mg Documented by: Ceftriaxone Sodium 1 gm/ (Sodium Chloride) 50 mls @ 100 mls/hr IVPB Q24HR [facility] Last Admin: 05/14/19 07:14 Dose: 100 mls/hr Documented by: Lisinopril (Zestril) 10 mg PO DAILY [facility] Last Admin: 05/14/19 07:15 Dose: 10 mg Documented by: Methotrexate (Methotrexate) 12.5 mg PO [facility] Morphine Sulfate (Morphine Sulfate (Inj)) 4 mg IVP Q4HR PRN PRN Reason: Pain Last Admin: 05/14/19 04:31 Dose: 4 mg Documented by: Oxycodone HCl (Oxyir) 5 mg PO Q6H PRN PRN Reason: Pain Objective - Vital Signs Vital signs: Vital Signs Temp 97.8 F 05/14/19 05:08 Pulse 66 05/14/19 05:08 Resp 16 05/14/19 05:08 BP 144/72 05/14/19 05:08 Pulse Ox 96 05/14/19 05:08 Intake & Output 05/13/19 05/14/19 05/14/19 18:59 06:59 18:59 Intake Total 600 300 Output Total 300 Balance 300 300 Intake: Oral 600 300 Output: Urine 300 Other: Voiding Method Urinal Urinal Urinal # Voids 1 2 1 - Exam General appearance: alert, in no apparent distress HENT - no pallor, no icterus. No JVD. Respiratory exam: normal lung sounds bilaterally. Absent: respiratory distress, wheezes, rales, rhonchi, stridor Cardiovascular Exam: regular rate, normal rhythm, normal heart sounds. Absent: systolic murmur, diastolic murmur, rubs, gallop, clicks GI/Abdominal exam: soft, normal bowel sounds. Absent: distended, tenderness, guarding, rebound, rigid Extremities exam: No pedal edema Neurological exam: alert, oriented X3, no focal neurological deficits. Skin- bruises seen over the chest below the breast area on both sides - Labs CBC & Chem 7: 05/14/19 06:39 05/14/19 06:39 Labs: Abnormal Lab Results - Last 24 Hours (Table) 05/14/19 05/14/19 Range/Units 06:39 06:39 RBC 4.00 L (4.30-5.90) m/uL Hgb 11.9 L (13.0-17.5) gm/dL Hct 37.7 L (39.0-53.0) % Calcium 8.3 L (8.4-10.2) mg/dL Microbiology - Last 24 Hours (Table) 05/11/19 20:37 Blood Culture - Preliminary Blood No Growth after 48 hours Assessment and Plan Assessment: ASSESSMENT Recurrent falls Right humeral fracture Chronic debility Parkinson's disease Rheumatoid arthritis Hypertension History of prostate cancer status post radiation therapy PLAN: Patient vitals and labs within normal limits from this morning. Patient is being managed on [place] for his pain. Orthopedic suggested conservative management for his fracture. Awaiting rehab placement. Further recommendations depending on the progress of the patient.
[2019-05-15] MEDS: amLODIPine 5 MG TAB PO SCH (07:37)
[2019-05-15] MEDS: FOLIC ACID 1 MG TAB PO SCH (07:37)
[2019-05-15] MEDS: ATENOLOL 25 MG TAB PO SCH (07:37)
[2019-05-15] MEDS: FAMOTIDINE 20 MG TAB PO SCH (07:37)
[2019-05-15] MEDS: ASPIRIN 81 MG PO SCH (07:37)
[2019-05-15] MEDS: CARBIDOPA-LEVODOPA 25-250 MG 1 EACH TAB PO SCH ×2 (07:37→12:04)
[2019-05-15] MEDS: ENOXAPARIN 40 MG/0.4 ML SYRINGE SQ SCH (07:37)
[2019-05-15] MEDS: ENTACAPONE 200 MG TAB PO SCH (07:37)
[2019-05-15] MEDS: LISINOPRIL 10 MG TAB PO SCH (07:38)
[2019-05-15] MEDS: CYANOCOBALAMIN 500 MCG TAB PO SCH (07:38)
[2019-05-15] MEDS: CHOLECALCIFEROL 1,000 UNIT TAB PO SCH (07:38)
[2019-05-15 07:58] VITALS: RESP 16; TEMP 97.9
--- NOTE | 2019-05-15 13:07 | P.DS ---
Providers Date of admission: 05/11/19 20:04 Expected date of discharge: 05/15/19 Attending physician: Mandeep Mar Consults: 05/11/19 20:02 Consult Physician Routine Consulting Provider: Mandeep Mar Consult Reason/Comments: pcp Do you want consulting provider notified?: Yes 05/12/19 12:08 Consult Physician Routine Consulting Provider: Garett Pantoja Consult Reason/Comments: rt humerus fx Do you want consulting provider notified?: Already Contacted Primary care physician: Mandeep Mar - Discharge Diagnosis(es) (1) Fall Current Visit: Yes Status: Acute (2) Right humeral fracture Current Visit: Yes Status: Acute (3) Weakness Current Visit: Yes Status: Acute (4) Parkinsons disease Current Visit: No Status: Acute (5) Rheumatoid arthritis Current Visit: No Status: Acute Hospital Course: This is discharge from an 88-year-old white male Center admitted for right humeral fracture comminuted but not displaced. The patient had fall. Because of his advancing age and history of Parkinson disease with the size of the patient, he was appropriate admitted for rehab. After discussion with orthopedic surgery and the family, the patient is now scheduled for transfer to rehab. Patient Condition at Discharge: Fair Plan - Discharge Summary Discharge Rx Participant: No New Discharge Prescriptions: No Action amLODIPine BESYLATE/BENAZEPRIL [Lotrel 5-10 MG] 1 cap PO DAILY Ranitidine HCl [Zantac] 150 mg PO BID Aspirin 81 mg PO DAILY Methotrexate Sodium [Methotrexate] 12.5 mg PO WE Folic Acid 1 mg PO DAILY Carbidopa-Levodopa 25-250 mg [Sinemet 25-250 mg] 1 tab PO BID@0800,1300 Atenolol [Tenormin] 25 mg PO DAILY HYDROcodone/APAP 5-325MG [[place] 5-325] 1 tab PO Q6H PRN PRN Reason: Pain oxyCODONE HCL [OxyIR] 5 mg PO Q6H PRN PRN Reason: Pain Cyanocobalamin (Vitamin B-12) [Vitamin B-12] 1,000 mcg PO DAILY Vit C/E/Zn/Coppr/Lutein/Zeaxan [Preservision Areds 2 Softgel] 1 cap PO BID Cholecalciferol (Vitamin D3) [Vitamin D3] 2,000 unit PO DAILY Entacapone 200 mg PO BID Discharge Medication List Aspirin 81 mg PO DAILY 11/13/13 [History] Methotrexate Sodium [Methotrexate] 12.5 mg PO WE 11/13/13 [History] Ranitidine HCl [Zantac] 150 mg PO BID 11/13/13 [History] amLODIPine BESYLATE/BENAZEPRIL [Lotrel 5-10 MG] 1 cap PO DAILY 11/13/13 [History] Folic Acid 1 mg PO DAILY 06/29/17 [History] Atenolol [Tenormin] 25 mg PO DAILY 10/27/18 [History] Carbidopa-Levodopa 25-250 mg [Sinemet 25-250 mg] 1 tab PO BID@0800,1300 10/27/18 [History] Cholecalciferol (Vitamin D3) [Vitamin D3] 2,000 unit PO DAILY 05/11/19 [History] Cyanocobalamin (Vitamin B-12) [Vitamin B-12] 1,000 mcg PO DAILY 05/11/19 [History] Entacapone 200 mg PO BID 05/11/19 [History] HYDROcodone/APAP 5-325MG [[place] 5-325] 1 tab PO Q6H PRN 05/11/19 [History] Vit C/E/Zn/Coppr/Lutein/Zeaxan [Preservision Areds 2 Softgel] 1 cap PO BID 05/11/19 [History] oxyCODONE HCL [OxyIR] 5 mg PO Q6H PRN 05/11/19 [History] Follow up Appointment(s)/Referral(s): Mandeep Mar MD [Primary Care Provider] - 2 Weeks Garett Pantoja DO [Medical Doctor] - 2 Weeks Patient Instructions/Handouts: Fall Prevention for Older Adults (ED) Activity/Diet/Wound Care/Special Instructions: May wear the sling for comfort but is not required. Remove the sling when he is at bed or at rest. Continue range of motion of the elbow, wrist, and hand. Daily pendulum exercises to the right shoulder Discharge Disposition: TRANSFER TO SNF/ECF
[2019-05-15 14:21] VITALS: BP 100/57; PULSE 59
[2019-05-17] MEDS ORDERED: METHOTREXATE SODIUM 2.5 MG TAB PO SCH (09:00)
== END 2019-05-15 15:35 | DRG 563 ==
LOC: EC 17:01 → 4MS4W 20:04
PROVIDERS: ADMIT Family Medicine; ATTEND Family Medicine
DX: S42.231A 3-part fracture of surgical neck of right humerus, initial encounter for closed fracture (principal); N39.0 Urinary tract infection, site not specified; G20 Parkinson's disease; M06.9 Rheumatoid arthritis, unspecified; I10 Essential (primary) hypertension; R29.6 Repeated falls; K21.9 Gastro-esophageal reflux disease without esophagitis; R53.1 Weakness; R53.81 Other malaise; S20.212A Contusion of left front wall of thorax, initial encounter; S20.211A Contusion of right front wall of thorax, initial encounter; Z79.82 Long term (current) use of aspirin; Z79.899 Other long term (current) drug therapy; Z85.46 Personal history of malignant neoplasm of prostate; Z92.3 Personal history of irradiation; Z87.891 Personal history of nicotine dependence; Z90.49 Acquired absence of other specified parts of digestive tract; W18.30XA Fall on same level, unspecified, initial encounter; Y92.009 Unspecified place in unspecified non-institutional (private) residence as the place of occurrence of the external cause
CPT/HCPCS: 36415; 71046; 80048; 80053; 81001; 82550; 83735; 84100; 85025; 85610; 85730; 87040; 87086; 93005; 96361; 96374; 99284; 99285

== ENCOUNTER 2020-04-23 05:56 | Emergency (ER) | payer MEDICARE, BC ==
[2020-04-23] MEDS ORDERED: SODIUM CHLORIDE 0.9% 500 ML 500 ML IV STA (06:19)
--- NOTE | 2020-04-23 06:35 | ED ---
General Adult HPI - General Source: patient, EMS, RN notes reviewed Mode of arrival: EMS Limitations: no limitations <Jerome Lindo - Last Filed: 04/23/20 08:37> <Ha Lux - Last Filed: 04/23/20 09:09> - General Chief complaint: Fall Stated complaint: Weakness - History of Present Illness Initial comments: 89-year-old male with a past medical history of Parkinson's, prostate cancer, GERD presents to the emergency department for a chief complaint of falls. Patient had a fall yesterday morning and then again this morning. Both falls were mechanical. Patient reports that today he was walking to his bathroom when he slipped on water and fell back hitting his head. Patient was unable to get up so called the ambulance. They did help him off. Given patient has had a couple falls in the past 2 days they did bring him to the ER for evaluation. Patient was not on the floor for an extended period. Patient does admit to some mild increased weakness this morning after the fall.Patient has no other complaints at this time including shortness of breath, chest pain, abdominal pain, nausea or vomiting, headache, or visual changes. (Jerome Lindo) - Related Data Home Medications Medication Instructions Recorded Confirmed Aspirin 81 mg PO DAILY 11/13/13 04/23/20 amLODIPine BESYLATE/BENAZEPRIL 1 cap PO DAILY 11/13/13 04/23/20 [Lotrel 5-10 MG] metHOTREXate sodium [Methotrexate] 17.5 mg PO WE 11/13/13 04/23/20 Folic Acid 1 mg PO DAILY 06/29/17 04/23/20 Cholecalciferol (Vitamin D3) 2,000 unit PO DAILY 05/11/19 04/23/20 [Vitamin D3] Cyanocobalamin (Vitamin B-12) 1,000 mcg PO DAILY 05/11/19 04/23/20 [Vitamin B-12] HYDROcodone/APAP 5-325MG [Beaman 1 tab PO Q6H PRN 05/11/19 04/23/20 5-325] Vit C/E/Zn/Coppr/Lutein/Zeaxan 1 cap PO BID 05/11/19 04/23/20 [Preservision Areds 2 Softgel] Carbidopa-Levodopa 25-100 mg 1 tab PO DAILY@0800 04/23/20 04/23/20 [Sinemet 25-100] Carbidopa-Levodopa ER 50-200Mg 1 tab PO TID@0800,1200,1700 04/23/20 04/23/20 [Sinemet ER 50-200] Carboxymethylcellulose Sodium 1 drop BOTH EYES QID 04/23/20 04/23/20 [Refresh Tears] Refresh Pm 1 drop BOTH EYES HS 04/23/20 04/23/20 Zolpidem [Ambien] 5 mg PO HS PRN 04/23/20 04/23/20 cycloSPORINE 0.05% OPHTH SOLN 1 drop BOTH EYES Q12H 04/23/20 04/23/20 [Restasis] Allergies Allergy/AdvReac Type Severity Reaction Status Date / Time No Known Allergies Allergy Verified 04/23/20 08:00 Review of Systems ROS Other: All systems not noted in ROS Statement are negative. <Jerome Lindo - Last Filed: 04/23/20 08:37> ROS Other: All systems not noted in ROS Statement are negative. <Ha Lux - Last Filed: 04/23/20 09:09> ROS Statement: Those systems with pertinent positive or pertinent negative responses have been documented in the HPI. 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 prostate cancer-had radiation History of Any Multi-Drug Resistant Organisms: None Reported Past Surgical History: Back Surgery, Cholecystectomy Additional Past Surgical History / Comment(s): [facility]. Past Anesthesia/Blood Transfusion Reactions: No Reported Reaction Past Psychological History: No Psychological Hx Reported Smoking Status: Never smoker Past Alcohol Use History: Rare Past Drug Use History: None Reported - Past Family History Mother Family Medical History: No Reported History <Jerome Lindo - Last Filed: 04/23/20 08:37> General Exam Limitations: no limitations General appearance: alert, in no apparent distress Head exam: Present: atraumatic, normocephalic, normal inspection Eye exam: Present: normal appearance, PERRL, EOMI. Absent: scleral icterus, conjunctival injection, periorbital swelling ENT exam: Present: normal exam, mucous membranes moist Neck exam: Present: normal inspection, full ROM. Absent: tenderness, meningismus, lymphadenopathy Respiratory exam: Present: normal lung sounds bilaterally. Absent: respiratory distress, wheezes, rales, rhonchi, stridor Cardiovascular Exam: Present: regular rate, normal rhythm, normal heart sounds. Absent: systolic murmur, diastolic murmur, rubs, gallop, clicks GI/Abdominal exam: Present: soft, normal bowel sounds. Absent: distended, tenderness, guarding, rebound, rigid Neurological exam: Present: alert <Jerome Lindo - Last Filed: 04/23/20 08:37> Course <Ha Lux - Last Filed: 04/23/20 09:09> Vital Signs 04/23/20 04/23/20 04/23/20 06:02 07:03 07:54 Temperature 97.8 F 98.1 F Pulse Rate 81 68 72 Respiratory 17 18 17 Rate Blood Pressure 119/68 142/70 156/81 O2 Sat by Pulse 99 99 97 Oximetry - Reevaluation(s) Reevaluation #1: 04/23/20 09:08 PG supervision: I proceeded [id number] evaluation the patient. He did present with complaints of falls. He is able ably with his walker he does have a history of Parkinson's disease. He states she's not been doing a lot of physical activity recently. I did demonstrate and suggestexercises to strengthen his quadriceps and stabilizing muscles. He and his are in agre ement with this. The workup is negative for any adverse findings at this time. (Ha Lux) EKG Findings - EKG Comments: EKG Findings:: Sinus rhythm, first-degree AV block, ventricular rate 68, MS interval 244, QTC 431 <Jerome Lindo - Last Filed: 04/23/20 08:37> Medical Decision Making - Lab Data Result diagrams: 04/23/20 06:32 04/23/20 06:32 <Jerome Lindo - Last Filed: 04/23/20 08:37> - Lab Data Result diagrams: 04/23/20 06:32 04/23/20 06:32 <Ha Lux - Last Filed: 04/23/20 09:09> - Medical Decision Making Vitals are stable. CBC CMP unremarkable. Troponin negative, EKG shows a sinus rhythm with a first-degree AV block. Urinalysis does not show any obvious evidence of infection. CT shows no acute fracture or dislocation in the cervical spine. No acute cranial hemorrhage mass effect or midline shift. 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 I did discuss this with him and he will see his doctor for this. Chest x-ray shows chronic changes and mild cardiomegaly without acute process. Patient ambulated without assistance with walker. I discussed inpatient versus outpatient treatment with him and his . They would prefer discharge home and follow-up with their doctor. If he has worsening weakness he will return here to the emergency room. He is agreeable to this. (Jerome Lindo) - Lab Data Lab Results 04/23/20 04/23/20 04/23/20 Range/Units 06:32 06:32 06:32 WBC 6.2 (3.8-10.6) k/uL RBC 4.23 L (4.30-5.90) m/uL Hgb 13.4 (13.0-17.5) gm/dL Hct 40.9 (39.0-53.0) % MCV 96.5 (80.0-100.0) fL MCH 31.6 (25.0-35.0) pg MCHC 32.8 (31.0-37.0) g/dL RDW 15.0 (11.5-15.5) % Plt Count 228 (150-450) k/uL Neutrophils % 66 % Lymphocytes % 21 % Monocytes % 6 % Eosinophils % 5 % Basophils % 2 % Neutrophils # 4.1 (1.3-7.7) k/uL Lymphocytes # 1.3 (1.0-4.8) k/uL Monocytes # 0.3 (0-1.0) k/uL Eosinophils # 0.3 (0-0.7) k/uL Basophils # 0.1 (0-0.2) k/uL PT 10.3 (9.0-12.0) sec INR 1.0 (<1.2) APTT 25.7 (22.0-30.0) sec Sodium (137-145) mmol/L Potassium (3.5-5.1) mmol/L Chloride (98-107) mmol/L Carbon Dioxide (22-30) mmol/L Anion Gap mmol/L BUN (9-20) mg/dL Creatinine (0.66-1.25) mg/dL Est GFR (CKD-EPI)AfAm (>60 ml/min/1.73 sqM) Est GFR (CKD-EPI)NonAf (>60 ml/min/1.73 sqM) Glucose (74-99) mg/dL Calcium (8.4-10.2) mg/dL Magnesium (1.6-2.3) mg/dL Total Bilirubin (0.2-1.3) mg/dL AST (17-59) U/L ALT (4-49) U/L Alkaline Phosphatase (38-126) U/L Troponin I (0.000-0.034) ng/mL NT-Pro-B Natriuret Pep pg/mL Total Protein (6.3-8.2) g/dL Albumin (3.5-5.0) g/dL Urine Color Light Yellow Urine Appearance Clear (Clear) Urine pH 7.0 (5.0-8.0) Ur Specific [place] 1.005 (1.001-1.035) Urine Protein Negative (Negative) Urine Glucose (UA) Negative (Negative) Urine Ketones Negative (Negative) Urine Blood Trace H (Negative) Urine Nitrite Negative (Negative) Urine Bilirubin Negative (Negative) Urine Urobilinogen <2.0 (<2.0) mg/dL Ur Leukocyte Esterase Trace H (Negative) Urine RBC 1 (0-5) /hpf Urine WBC 4 (0-5) /hpf Ur Squamous Epith Cells <1 (0-4) /hpf Urine Mucus Rare H (None) /hpf 04/23/20 04/23/20 04/23/20 Range/Units 06:32 06:32 07:05 WBC (3.8-10.6) k/uL RBC (4.30-5.90) m/uL Hgb (13.0-17.5) gm/dL Hct (39.0-53.0) % MCV (80.0-100.0) fL MCH (25.0-35.0) pg MCHC (31.0-37.0) g/dL RDW (11.5-15.5) % Plt Count (150-450) k/uL Neutrophils % % Lymphocytes % % Monocytes % % Eosinophils % % Basophils % % Neutrophils # (1.3-7.7) k/uL Lymphocytes # (1.0-4.8) k/uL Monocytes # (0-1.0) k/uL Eosinophils # (0-0.7) k/uL Basophils # (0-0.2) k/uL PT (9.0-12.0) sec INR (<1.2) APTT (22.0-30.0) sec Sodium 137 (137-145) mmol/L Potassium 4.1 (3.5-5.1) mmol/L Chloride 103 (98-107) mmol/L Carbon Dioxide 30 (22-30) mmol/L Anion Gap 4 mmol/L BUN 13 (9-20) mg/dL Creatinine 0.90 (0.66-1.25) mg/dL Est GFR (CKD-EPI)AfAm 88 (>60 ml/min/1.73 sqM) Est GFR (CKD-EPI)NonAf 77 (>60 ml/min/1.73 sqM) Glucose 97 (74-99) mg/dL Calcium 8.8 (8.4-10.2) mg/dL Magnesium 2.2 (1.6-2.3) mg/dL Total Bilirubin 0.8 (0.2-1.3) mg/dL AST 21 (17-59) U/L ALT 6 (4-49) U/L Alkaline Phosphatase 72 (38-126) U/L Troponin I <0.012 (0.000-0.034) ng/mL NT-Pro-B Natriuret Pep 166 pg/mL Total Protein 5.9 L (6.3-8.2) g/dL Albumin 3.7 (3.5-5.0) g/dL Urine Color Urine Appearance (Clear) Urine pH (5.0-8.0) Ur Specific [place] (1.001-1.035) Urine Protein (Negative) Urine Glucose (UA) (Negative) Urine Ketones (Negative) Urine Blood (Negative) Urine Nitrite (Negative) Urine Bilirubin (Negative) Urine Urobilinogen (<2.0) mg/dL Ur Leukocyte Esterase (Negative) Urine RBC (0-5) /hpf Urine WBC (0-5) /hpf Ur Squamous Epith Cells (0-4) /hpf Urine Mucus (None) /hpf Disposition Is patient prescribed a controlled substance at d/c from ED?: No Time of Disposition: 08:39 <Jerome Lindo - Last Filed: 04/23/20 08:37> <Ha Lux - Last Filed: 04/23/20 09:09> Clinical Impression: Fall Disposition: HOME SELF-CARE Condition: Good Instructions (If sedation given, give patient instructions): Fall Prevention (ED) Additional Instructions: Please follow-up with your doctor to go through your results on imaging studies. If you have any worsening weakness or increased falls return to the emergency room. Referrals: Saad Noel MD [REFERRING] - 1-2 days
[2020-04-23 06:42] LABS: Basophils # (A) 0.1 k/uL (0-0.2); Basophils % (A) 2 %; Eosinophils # (A) 0.3 k/uL (0-0.7); Eosinophils % (A) 5 %; HCT 40.9 % (39.0-53.0); HGB 13.4 gm/dL (13.0-17.5); Lymphocytes # (A) 1.3 k/uL (1.0-4.8); Lymphocytes % (A) 21 %; MCH 31.6 pg (25.0-35.0); MCHC 32.8 g/dL (31.0-37.0); MCV 96.5 fL (80.0-100.0); Mean Platelet Volume 7.6; Monocytes # (A) 0.3 k/uL (0-1.0); Monocytes % (A) 6 %; Neutrophils # (A) 4.1 k/uL (1.3-7.7); Neutrophils % (A) 66 %; Platelet Count 228 k/uL (150-450); RBC 4.23 m/uL (4.30-5.90); WBC 6.2 k/uL (3.8-10.6)
[2020-04-23 06:48] LABS: Albumin 3.7 g/dL (3.5-5.0); Calcium 8.8 mg/dL (8.4-10.2); Magnesium 2.2 mg/dL (1.6-2.3); Potassium 4.1 mmol/L (3.5-5.1); Total Bilirubin 0.8 mg/dL (0.2-1.3); Total Protein 5.9 g/dL (6.3-8.2)
[2020-04-23 06:53] LABS: Partial Thromboplastin Time 25.7 sec (22.0-30.0); Prothrombin Time 10.3 sec (9.0-12.0)
[2020-04-23 07:00] LABS: Appearance,Urine Clear (Clear); Bilirubin,Urine Negative (Negative); Blood,Urine Trace (Negative); Color,Urine Light Yellow; Glucose,Urine (UA) Negative (Negative); Ketones,Urine Negative (Negative); Leukocyte Esterase,Urine Trace (Negative); Mucus,Urine Rare /hpf; Nitrite,Urine Negative (Negative); Protein,Urine Negative (Negative); RBC,Urine 1 /hpf (0-5); Specific Gravity,Urine 1.005 (1.001-1.035); Squamous Epithelial Cell,Urine <1 /hpf (0-4); Urobilinogen,Urine <2.0 mg/dL (<2.0); WBC,Urine 4 /hpf (0-5)
[2020-04-23 07:03] VITALS: TEMP 98.1
[2020-04-23 07:55] VITALS: BP 156/81; PULSE 72; RESP 17
--- NOTE | 2020-04-23 08:14 | CT ---
EXAMINATION TYPE: CT brain cspine wo con DATE OF EXAM: 04/23/2020 COMPARISON: CT brain 11/14/2018 HISTORY: Head injury, trauma and pain CT DLP: 1463.5 mGycm Automated exposure control for dose reduction was used. TECHNIQUE: CT scan of the head and cervical spine are performed without contrast. FINDINGS: There is no acute intracranial hemorrhage, mass effect, or midline shift identified. The ventricles and sulci are stable in size. The globes are intact and the visualized sinuses are clear . Periventricular white matter shows patchy low attenuation as on prior exam. Cervical spine is visualized in its entirety from C1 through upper thoracic levels and demonstrates n ear-anatomic alignment without evidence of acute fracture or dislocation. There is multilevel spondyl osis present. Loss of disc height present at intervertebral levels. There is facet arthropathy change s at multiple levels, multilevel foraminal encroachment. Prevertebral soft tissue appears within nor mal limits. The C1-C2 articulation is unremarkable. Proximal descending aorta measures 3.3 cm. IMPRESSION: 1. There is no acute fracture or dislocation evident in the cervical spine. 2. No acute intracranial hemorrhage, mass effect, or midline shift is seen. 3. Aortic ectasia proximal descending aorta
--- NOTE | 2020-04-23 08:15 | XR ---
EXAMINATION TYPE: XR chest 2V DATE OF EXAM: 04/23/2020 COMPARISON: Chest x-ray May 11, 2019 HISTORY: Weakness. TECHNIQUE: Frontal and lateral views of the chest are obtained. FINDINGS: There is chronic parenchyma change bilaterally without suspicious focal air space opacity, pleural effusion, or pneumothorax seen. Elevated left hemidiaphragm. The cardiac silhouette size is stable and mildly enlarged. Large bridging osteophytes in thoracic spine. Correlate for DISH. IMPRESSION: Chronic changes and mild cardiomegaly without acute pulmonary process.
== END 2020-04-23 08:54 | disposition home or self-care (01) ==
LOC: EC 05:56
DX: Z04.3 Encounter for examination and observation following other accident (principal); I44.0 Atrioventricular block, first degree; I77.819 Aortic ectasia, unspecified site; I10 Essential (primary) hypertension; K21.9 Gastro-esophageal reflux disease without esophagitis; M06.9 Rheumatoid arthritis, unspecified; G20 Parkinson's disease; Z79.82 Long term (current) use of aspirin; Z79.899 Other long term (current) drug therapy; Z85.46 Personal history of malignant neoplasm of prostate
CPT/HCPCS: 36415; 70450; 71046; 72125; 80053; 81001; 83735; 83880; 84484; 85025; 85610; 85730; 93005; 99284

== ENCOUNTER 2020-09-06 13:24 | Emergency (ER) | payer MEDICARE, BC ==
[2020-09-06 13:32] VITALS: RESP 18
--- NOTE | 2020-09-06 13:53 | ED ---
General Adult HPI - General Chief complaint: Urogenital Stated complaint: Blood in urine Time Seen by Provider: 09/06/20 13:42 Source: patient, EMS Mode of arrival: EMS Limitations: physical limitation - History of Present Illness Initial comments: Dictation was produced using Printi dictation software. please excuse any grammatical, word or spelling errors. This patient was cared for during a federal and state declared state of emergency secondary to Covid 19 Chief Complaint: 89-year-old male past medical history of Parkinson's disease, hypertension, rheumatoid arthritis presents to the emergency Department with hematuria History of Present Illness: She is an 89-year-old male who presents to the emergency Department with chief complaint hematuria. Patient began noticing bright red blood in his urine since yesterday. Decision was made to have EMS come bring the patient to the ER today by patient and his . Patient denies any history of urinary issues. He does report some pain with urination. He denies any flank pain. Denies any fever, chills or night sweats. Patient has no testicular pain or swelling. Denies any having ever had history of urinary issues. Has never seen a urologist. The ROS documented in this emergency department record has been reviewed and confirmed by me. Those systems with pertinent positive or negative responses have been documented in the HPI. All other systems are other negative and/or noncontributory. PHYSICAL EXAM: General Impression: Alert and oriented x3, not in acute distress HEENT: Normocephalic atraumatic, extra-ocular movements intact, pupils equal and reactive to light bilaterally, mucous membranes moist. Cardiovascular: Heart regular rate and rhythm Chest: Able to complete full sentences, no retractions, no tachypnea Abdomen: abdomen soft, non-tender, non-distended, no organomegaly, slight fullness over the suprapubic area Musculoskeletal: Pulses present and equal in all extremities, no peripheral edema Motor: no focal deficits noted Neurological: CN II-XII grossly intact, no focal motor or sensory deficits noted Skin: Intact with no visualized rashes Psych: Normal affect and mood : There is blood clots on patient's underwear, no testicular tenderness, perineum is intact, there is dried blood at the urethral meatus ED course: 82-year-old male with chief complaint of ramsey hematuria. He is also having dysuria. vital signs upon arrival are within acceptable limits. Laboratory evaluation obtained. He will stable 14.1. Coag panel is negative. Metabolic panels negative maybe some slight dehydration. Urinalysis shows greater than 182 red blood cells and 60 white blood cells. Given degree of ramsey hematuria ultrasound of the kidneys urinary bladder was obtained. There is possible prostatic enlargement causing inferior impression on the urinary bladder somewhat limited exam. Patient given a dose of ceftriaxone. There is concern of possible bleeding bladder mass versus hemorrhagic cystitis. Patient given prescription for by mouth antibiotics. Patient given referral to urologist. Plan was discussed with patient and patient's were agreeable. - Related Data Home Medications Medication Instructions Recorded Confirmed Aspirin 81 mg PO DAILY 11/13/13 04/23/20 amLODIPine BESYLATE/BENAZEPRIL 1 cap PO DAILY 11/13/13 04/23/20 [Lotrel 5-10 MG] metHOTREXate sodium [Methotrexate] 17.5 mg PO WE 11/13/13 04/23/20 Folic Acid 1 mg PO DAILY 06/29/17 04/23/20 Cholecalciferol (Vitamin D3) 2,000 unit PO DAILY 05/11/19 04/23/20 [Vitamin D3] Cyanocobalamin (Vitamin B-12) 1,000 mcg PO DAILY 05/11/19 04/23/20 [Vitamin B-12] HYDROcodone/APAP 5-325MG [Blairs 1 tab PO Q6H PRN 05/11/19 04/23/20 5-325] Vit C/E/Zn/Coppr/Lutein/Zeaxan 1 cap PO BID 05/11/19 04/23/20 [Preservision Areds 2 Softgel] Carbidopa-Levodopa 25-100 mg 1 tab PO DAILY@0800 04/23/20 04/23/20 [Sinemet 25-100] Carbidopa-Levodopa ER 50-200Mg 1 tab PO TID@0800,1200,1700 04/23/20 04/23/20 [Sinemet ER 50-200] Carboxymethylcellulose Sodium 1 drop BOTH EYES QID 04/23/20 04/23/20 [Refresh Tears] Refresh Pm 1 drop BOTH EYES HS 04/23/20 04/23/20 Zolpidem [Ambien] 5 mg PO HS PRN 04/23/20 04/23/20 cycloSPORINE 0.05% OPHTH SOLN 1 drop BOTH EYES Q12H 04/23/20 04/23/20 [Restasis] Previous Rx's Medication Instructions Recorded Cephalexin [Keflex] 500 mg PO Q6HR 7 Days #28 cap 09/06/20 Allergies Allergy/AdvReac Type Severity Reaction Status Date / Time No Known Allergies Allergy Verified 09/06/20 13:33 Review of Systems ROS Statement: Those systems with pertinent positive or pertinent negative responses have been documented in the HPI. ROS Other: All systems not noted in ROS Statement are negative. 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 prostate cancer-had radiation History of Any Multi-Drug Resistant Organisms: None Reported Past Surgical History: Back Surgery, Cholecystectomy Additional Past Surgical History / Comment(s): [facility]. Past Anesthesia/Blood Transfusion Reactions: No Reported Reaction Past Psychological History: No Psychological Hx Reported Smoking Status: Never smoker Past Alcohol Use History: Rare Past Drug Use History: None Reported - Past Family History Mother Family Medical History: No Reported History General Exam Limitations: physical limitation Course Vital Signs 09/06/20 09/06/20 09/06/20 13:25 13:32 14:32 Temperature 97.3 F L Pulse Rate 83 82 62 Respiratory 18 18 18 Rate Blood Pressure 149/76 149/90 168/82 O2 Sat by Pulse 100 95 96 Oximetry 09/06/20 15:32 Temperature Pulse Rate 83 Respiratory 18 Rate Blood Pressure 133/71 O2 Sat by Pulse 98 Oximetry Medical Decision Making - Lab Data Result diagrams: 09/06/20 14:33 09/06/20 14:33 Lab Results 09/06/20 09/06/20 09/06/20 Range/Units 14:20 14:30 14:33 WBC (3.8-10.6) k/uL RBC (4.30-5.90) m/uL Hgb (13.0-17.5) gm/dL Hct (39.0-53.0) % MCV (80.0-100.0) fL MCH (25.0-35.0) pg MCHC (31.0-37.0) g/dL RDW (11.5-15.5) % Plt Count (150-450) k/uL MPV Neutrophils % % Lymphocytes % % Monocytes % % Eosinophils % % Basophils % % Neutrophils # (1.3-7.7) k/uL Lymphocytes # (1.0-4.8) k/uL Monocytes # (0-1.0) k/uL Eosinophils # (0-0.7) k/uL Basophils # (0-0.2) k/uL PT (9.0-12.0) sec INR (<1.2) APTT (22.0-30.0) sec Sodium (137-145) mmol/L Potassium (3.5-5.1) mmol/L Chloride (98-107) mmol/L Carbon Dioxide (22-30) mmol/L Anion Gap mmol/L BUN (9-20) mg/dL Creatinine (0.66-1.25) mg/dL Est GFR (CKD-EPI)AfAm (>60 ml/min/1.73 sqM) Est GFR (CKD-EPI)NonAf (>60 ml/min/1.73 sqM) Glucose (74-99) mg/dL Calcium (8.4-10.2) mg/dL Urine Color Red Urine Appearance Bloody (Clear) Urine RBC >182 H (0-5) /hpf Urine WBC 60 H (0-5) /hpf Urine WBC Clumps Few H (None) /hpf Urine Bacteria Many H (None) /hpf Urine Mucus Occasional H (None) /hpf Blood Type AB Positive Blood Type Confirm AB Positive Blood Type Recheck No Previous Record Bld Type Recheck Status CABO Indicated Antibody Screen NEGATIVE Spec Expiration Date 09/09/2020 - 233209/06/20 09/06/20 09/06/20 Range/Units 14:33 14:33 14:33 WBC 10.6 (3.8-10.6) k/uL RBC 4.26 L (4.30-5.90) m/uL Hgb 14.1 (13.0-17.5) gm/dL Hct 40.4 (39.0-53.0) % MCV 94.8 (80.0-100.0) fL MCH 33.1 (25.0-35.0) pg MCHC 34.9 (31.0-37.0) g/dL RDW 15.5 (11.5-15.5) % Plt Count 333 (150-450) k/uL MPV 7.1 Neutrophils % 72 % Lymphocytes % 18 % Monocytes % 6 % Eosinophils % 2 % Basophils % 1 % Neutrophils # 7.7 (1.3-7.7) k/uL Lymphocytes # 1.9 (1.0-4.8) k/uL Monocytes # 0.6 (0-1.0) k/uL Eosinophils # 0.2 (0-0.7) k/uL Basophils # 0.1 (0-0.2) k/uL PT 11.0 (9.0-12.0) sec INR 1.0 (<1.2) APTT 26.2 (22.0-30.0) sec Sodium 138 (137-145) mmol/L Potassium 4.6 (3.5-5.1) mmol/L Chloride 102 (98-107) mmol/L Carbon Dioxide 28 (22-30) mmol/L Anion Gap 8 mmol/L BUN 22 H (9-20) mg/dL Creatinine 0.83 (0.66-1.25) mg/dL Est GFR (CKD-EPI)AfAm >90 (>60 ml/min/1.73 sqM) Est GFR (CKD-EPI)NonAf 79 (>60 ml/min/1.73 sqM) Glucose 104 H (74-99) mg/dL Calcium 9.2 (8.4-10.2) mg/dL Urine Color Urine Appearance (Clear) Urine RBC (0-5) /hpf Urine WBC (0-5) /hpf Urine WBC Clumps (None) /hpf Urine Bacteria (None) /hpf Urine Mucus (None) /hpf Blood Type Blood Type Confirm Blood Type Recheck Bld Type Recheck Status Antibody Screen Spec Expiration Date Disposition Clinical Impression: Hematuria Disposition: HOME SELF-CARE Condition: Fair Instructions (If sedation given, give patient instructions): Hematuria (ED) Prescriptions: Cephalexin [Keflex] 500 mg PO Q6HR 7 Days #28 cap Is patient prescribed a controlled substance at d/c from ED?: No Referrals: Brad Bey MD [STAFF PHYSICIAN] - 1-2 days Time of Disposition: 16:19
--- NOTE | 2020-09-06 14:41 | US ---
EXAMINATION TYPE: US kidneys/renal and bladder DATE OF EXAM: 09/06/2020 COMPARISON: NONE CLINICAL HISTORY: hematuria. ER pt with gross hematuria that started yesterday EXAM MEASUREMENTS: Right Kidney: 10.1 x 4.8 x 4.7 cm Left Kidney: 10.2 x 5.7 x 5.2 cm Difficult to penetrate, limited visualization Right Kidney: No evidence of hydro,limited views show no abnormality Left Kidney: No evidence of hydro, limited views show no abnormality Bladder: Inferior impression suspected at the urinary bladder: Bladder is not distended Bilateral Jets seen: No Cortical measured differentiation is maintained. IMPRESSION: Possible prostatic enlargement causing inferior impression on the urinary bladder is somewhat limited exam
[2020-09-06 14:46] LABS: Basophils # (A) 0.1 k/uL (0-0.2); Basophils % (A) 1 %; Eosinophils # (A) 0.2 k/uL (0-0.7); Eosinophils % (A) 2 %; HCT 40.4 % (39.0-53.0); HGB 14.1 gm/dL (13.0-17.5); Lymphocytes # (A) 1.9 k/uL (1.0-4.8); Lymphocytes % (A) 18 %; MCH 33.1 pg (25.0-35.0); MCHC 34.9 g/dL (31.0-37.0); MCV 94.8 fL (80.0-100.0); Mean Platelet Volume 7.1; Monocytes # (A) 0.6 k/uL (0-1.0); Monocytes % (A) 6 %; Neutrophils # (A) 7.7 k/uL (1.3-7.7); Neutrophils % (A) 72 %; Platelet Count 333 k/uL (150-450); RBC 4.26 m/uL (4.30-5.90); RDW 15.5 % (11.5-15.5); WBC 10.6 k/uL (3.8-10.6)
[2020-09-06 14:53] LABS: African American GFR (CKD) >90 (>60 ml/min/1.73 sqM); Anion Gap 8 mmol/L; Blood Urea Nitrogen 22 mg/dL (9-20); Calcium 9.2 mg/dL (8.4-10.2); Carbon Dioxide 28 mmol/L (22-30); Chloride 102 mmol/L (98-107); Glucose 104 mg/dL (74-99); Non-African American GFR(CKD) 79 (>60 ml/min/1.73 sqM); Potassium 4.6 mmol/L (3.5-5.1); Sodium 138 mmol/L (137-145)
[2020-09-06 15:01] LABS: Partial Thromboplastin Time 26.2 sec (22.0-30.0)
[2020-09-06 15:10] LABS: Bacteria,Urine Many /hpf; Mucus,Urine Occasional /hpf; RBC,Urine >182 /hpf (0-5); WBC,Urine 60 /hpf (0-5)
[2020-09-06 15:11] LABS: Appearance,Urine Bloody (Clear); Color,Urine Red
[2020-09-06] MEDS ORDERED: cefTRIAXone IN SWFI 1,000 MG/10 ML SYRINGE IVP STA (15:30)
[2020-09-06] MEDS ORDERED: CEPHALEXIN 500MG STARTER PACK 4 CAP BTL PO STA (16:19)
[2020-09-06 17:19] VITALS: BP 148/82; PULSE 85; TEMP 97.9
== END 2020-09-06 17:18 | disposition home or self-care (01) ==
LOC: EC 13:24
DX: R31.0 Gross hematuria (principal); I10 Essential (primary) hypertension; K21.9 Gastro-esophageal reflux disease without esophagitis; Z79.82 Long term (current) use of aspirin
CPT/HCPCS: 51798; 36415; 86900; 86901; 80048; 85025; 85610; 85730; 86850; 81001; 87086; 87077; 87186; 76770; 99284; 96374; J0696

== ENCOUNTER 2020-09-19 01:57 | Inpatient (IN) | payer MEDICARE, BC ==
[2020-09-19 02:14] LABS: Glucose,Whole Blood 74 mg/dL (75-99)
[2020-09-19 02:25] LABS: Basophils # (A) 0.1 k/uL (0-0.2); Basophils % (A) 1 %; Eosinophils # (A) 0.3 k/uL (0-0.7); Eosinophils % (A) 3 %; HCT 36.2 % (39.0-53.0); HGB 11.6 gm/dL (13.0-17.5); Lymphocytes # (A) 2.4 k/uL (1.0-4.8); Lymphocytes % (A) 27 %; MCH 30.8 pg (25.0-35.0); MCV 96.4 fL (80.0-100.0); Mean Platelet Volume 7.1; Monocytes # (A) 0.5 k/uL (0-1.0); Monocytes % (A) 5 %; Neutrophils # (A) 5.8 k/uL (1.3-7.7); Neutrophils % (A) 64 %; Platelet Count 404 k/uL (150-450); RBC 3.76 m/uL (4.30-5.90); RDW 15.4 % (11.5-15.5); WBC 9.1 k/uL (3.8-10.6)
[2020-09-19 02:39] LABS: ALT 10 U/L (4-49); AST 20 U/L (17-59); African American GFR (CKD) >90 (>60 ml/min/1.73 sqM); Alkaline Phosphatase 59 U/L (38-126); Anion Gap 5 mmol/L; Blood Urea Nitrogen 15 mg/dL (9-20); Calcium 7.7 mg/dL (8.4-10.2); Carbon Dioxide 25 mmol/L (22-30); Chloride 107 mmol/L (98-107); Glucose 102 mg/dL (74-99); Non-African American GFR(CKD) 82 (>60 ml/min/1.73 sqM); Potassium 3.7 mmol/L (3.5-5.1); Sodium 137 mmol/L (137-145); Total Bilirubin 0.4 mg/dL (0.2-1.3); Total Protein 5.2 g/dL (6.3-8.2)
--- NOTE | 2020-09-19 02:41 | XR ---
EXAM: XR Chest, 1 View CLINICAL HISTORY: ITS.REASON XR Reason: altered mental status TECHNIQUE: Frontal view of the chest. COMPARISON: 04/23/2020 FINDINGS: Lungs: No consolidation or mass. Pleural space: No acute findings Heart: No cardiomegaly. Bones/joints: No acute findings. IMPRESSION: No acute cardiopulmonary process.
--- NOTE | 2020-09-19 02:42 | CT ---
EXAM: CT Head Without Intravenous Contrast CLINICAL HISTORY: ITS.REASON CT Reason: Neuro deficit, acute, stroke suspected TECHNIQUE: Axial computed tomography images of the head/brain without intravenous contrast. CTDI is 48.8 mGy and DLP is 1190 mGy-cm. This CT exam was performed using one or more of the following dose reduction techniques: automated exposure control, adjustment of the mA and/or kV according to patient size, and/or use of iterative reconstruction technique. COMPARISON: No relevant prior studies available. FINDINGS: Brain: No hemorrhage or mass effect. Mild cerebral volume loss. Ventricles: No hydrocephalus. Bones/joints: Unremarkable. Soft tissues: Unremarkable. Sinuses: Unremarkable. Mastoid air cells: Clear. IMPRESSION: No acute hemorrhage, hydrocephalus, or mass effect.
--- NOTE | 2020-09-19 02:43 | CT ---
EXAM: CT Angiography Head With Intravenous Contrast CLINICAL HISTORY: ITS.REASON CT Reason: Neuro deficit, acute, stroke suspected TECHNIQUE: Axial computed tomographic angiography images of the head with intravenous contrast. CTDI is 6 mGy and DLP is 254.6 mGy-cm. This CT exam was performed using one or more of the following dose reduction techniques: automated exposure control, adjustment of the mA and/or kV according to patient size, and/or use of iterative reconstruction technique. MIP reconstructed images were created and reviewed. COMPARISON: No relevant prior studies available. FINDINGS: Right internal carotid artery: Intracranial segment is patent with no significant stenosis. No aneurysm. Right anterior cerebral artery: No occlusion or significant stenosis. No aneurysm. Right middle cerebral artery: No occlusion or significant stenosis. No aneurysm. Right posterior cerebral artery: No occlusion or significant stenosis. No aneurysm. Right vertebral artery: Unremarkable. Left internal carotid artery: Intracranial segment is patent with no significant stenosis. No aneurysm. Left anterior cerebral artery: No occlusion or significant stenosis. No aneurysm. Left middle cerebral artery: No occlusion or significant stenosis. No aneurysm. Left posterior cerebral artery: No occlusion or significant stenosis. No aneurysm. Left vertebral artery: Unremarkable. Basilar artery: No occlusion or significant stenosis. No aneurysm. IMPRESSION: No significant stenosis. EXAM: CT Angiography Neck With Intravenous Contrast CLINICAL HISTORY: ITS.REASON CT Reason: Neuro deficit, acute, stroke suspected TECHNIQUE: Axial computed tomographic angiography images of the neck with intravenous contrast. CTDI is 6.8 mGy and DLP is 300 mGy-cm. This CT exam was performed using one or more of the following dose reduction techniques: automated exposure control, adjustment of the mA and/or kV according to patient size, and/or use of iterative reconstruction technique. MIP reconstructed images were created and reviewed. COMPARISON: No relevant prior studies available. FINDINGS: VASCULATURE: Right common carotid artery: No significant stenosis. No dissection. Right internal carotid artery: 30% narrowing proximally. No dissection. Right vertebral artery: No significant stenosis. No dissection. Left common carotid artery: No significant stenosis. No dissection. Left internal carotid artery: Extracranial has no significant stenosis. No dissection. Left vertebral artery: No significant stenosis. No dissection. NECK: Bones/joints: No acute fracture. No dislocation. CAROTID STENOSIS REFERENCE USING NASCET CRITERIA: % ICA stenosis = (1 - narrowest ICA diameter/diameter of distal cervical ICA) x 100. Mild - <50% stenosis. Moderate - 50-69% stenosis. Severe - 70-94% stenosis. Near occlusion - 95-99% stenosis. Occluded - 100% stenosis. IMPRESSION: No significant stenosis. 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
[2020-09-19 03:00] LABS: Amorphous Sediment,Urine Rare /hpf; Appearance,Urine Clear (Clear); Bilirubin,Urine Negative (Negative); Blood,Urine Moderate (Negative); Color,Urine Light Yellow; Glucose,Urine (UA) Negative (Negative); Hyaline Casts,Urine 17 /lpf (0-2); Ketones,Urine Negative (Negative); Leukocyte Esterase,Urine Small (Negative); Mucus,Urine Rare /hpf; Nitrite,Urine Negative (Negative); PH, Urine 6.5 (5.0-8.0); Protein,Urine Trace (Negative); RBC,Urine 5 /hpf (0-5); Squamous Epithelial Cell,Urine <1 /hpf (0-4); Urobilinogen,Urine <2.0 mg/dL (<2.0); WBC,Urine 11 /hpf (0-5)
--- NOTE | 2020-09-19 04:18 | ED ---
Neuro HPI - General Stated Complaint: Right side weakness Time Seen by Provider: 09/19/20 01:58 Source: patient, EMS Mode of arrival: EMS Limitations: no limitations - History of Present Illness Is the patient presenting with stroke symptoms?: Yes Last Known Well Date: 09/18/20 Last Known Well Time: 20:00 Onset/Timin -: hour(s) Location: left arm, left leg History of same: No Place: home Severity: mild Quality: weak Improves With: none Worsens With: none Context: sudden onset Associated Symptoms: denies other symptoms Treatments Prior to Arrival: none - Related Data Home Medications: Home Medications Medication Instructions Recorded Confirmed Aspirin 81 mg PO DAILY 11/13/13 09/19/20 amLODIPine BESYLATE/BENAZEPRIL 1 cap PO DAILY@1700 11/13/13 09/19/20 [Lotrel 5-10 MG] metHOTREXate sodium [Methotrexate] 17.5 mg PO WE 11/13/13 09/19/20 Folic Acid 1 mg PO DAILY 06/29/17 09/19/20 Cholecalciferol (Vitamin D3) 2,000 unit PO DAILY 05/11/19 09/19/20 [Vitamin D3] Cyanocobalamin (Vitamin B-12) 1,000 mcg PO DAILY 05/11/19 09/19/20 [Vitamin B-12] HYDROcodone/APAP 5-325MG [[place] 1 tab PO Q6H PRN 05/11/19 09/19/20 5-325] Vit C/E/Zn/Coppr/Lutein/Zeaxan 1 cap PO BID@0800,1700 05/11/19 09/19/20 [Preservision Areds 2 Softgel] Carbidopa-Levodopa ER 50-200Mg 1 tab PO BID@0800,1300 04/23/20 09/19/20 [Sinemet ER 50-200] Zolpidem [Ambien] 5 mg PO HS PRN 04/23/20 09/19/20 Furosemide [Lasix] 20 mg PO DAILY 09/19/20 09/19/20 QUEtiapine [SEROquel] 25 mg PO HS 09/19/20 09/19/20 Allergies/Adverse Reactions: Allergies Allergy/AdvReac Type Severity Reaction Status Date / Time No Known Allergies Allergy Verified 09/19/20 06:42 Review of Systems ROS Statement: Those systems with pertinent positive or pertinent negative responses have been documented in the HPI. ROS Other: All systems not noted in ROS Statement are negative. Constitutional: Denies: fever, chills Eyes: Denies: vision change ENT: Denies: throat pain Respiratory: Denies: cough, dyspnea Cardiovascular: Reports: edema. Denies: chest pain, palpitations, syncope Gastrointestinal: Denies: abdominal pain, nausea, vomiting, melena, hematochezia Genitourinary: Denies: dysuria, hematuria Musculoskeletal: Denies: back pain Skin: Denies: rash Neurological: Reports: weakness. Denies: headache, numbness General Exam Limitations: no limitations General appearance: alert, in no apparent distress Head exam: Present: atraumatic, normocephalic Eye exam: Present: normal appearance, PERRL, EOMI. Absent: scleral icterus, conjunctival injection, nystagmus ENT exam: Present: mucous membranes dry Neck exam: Present: normal inspection, full ROM. Absent: tenderness Respiratory exam: Present: normal lung sounds bilaterally, rhonchi. Absent: respiratory distress, wheezes, rales, stridor Cardiovascular Exam: Present: regular rate, normal rhythm, normal heart sounds. Absent: systolic murmur, diastolic murmur, rubs, gallop GI/Abdominal exam: Present: soft. Absent: distended, tenderness, guarding, rebound, rigid, mass Extremities exam: Present: normal inspection, normal capillary refill, pedal edema. Absent: calf tenderness Back exam: Present: normal inspection. Absent: CVA tenderness (R), CVA tenderness (L) Neurological exam: Present: alert, oriented X3, CN II-XII intact, motor sensory deficit Skin exam: Present: warm, dry, intact, normal color. Absent: rash Stroke MDM - Lab Data Result diagrams: 09/20/20 08:29 09/20/20 08:29 Lab Results 09/19/20 09/19/20 09/19/20 Range/Units 02:12 02:15 02:15 WBC 9.1 (3.8-10.6) k/uL RBC 3.76 L (4.30-5.90) m/uL Hgb 11.6 L (13.0-17.5) gm/dL Hct 36.2 L (39.0-53.0) % MCV 96.4 (80.0-100.0) fL MCH 30.8 (25.0-35.0) pg MCHC 32.0 (31.0-37.0) g/dL RDW 15.4 (11.5-15.5) % Plt Count 404 (150-450) k/uL MPV 7.1 Neutrophils % 64 % Lymphocytes % 27 % Monocytes % 5 % Eosinophils % 3 % Basophils % 1 % Neutrophils # 5.8 (1.3-7.7) k/uL Lymphocytes # 2.4 (1.0-4.8) k/uL Monocytes # 0.5 (0-1.0) k/uL Eosinophils # 0.3 (0-0.7) k/uL Basophils # 0.1 (0-0.2) k/uL PT 11.0 (9.0-12.0) sec INR 1.0 (<1.2) APTT 20.0 L (22.0-30.0) sec Sodium (137-145) mmol/L Potassium (3.5-5.1) mmol/L Chloride (98-107) mmol/L Carbon Dioxide (22-30) mmol/L Anion Gap mmol/L BUN (9-20) mg/dL Creatinine (0.66-1.25) mg/dL Est GFR (CKD-EPI)AfAm (>60 ml/min/1.73 sqM) Est GFR (CKD-EPI)NonAf (>60 ml/min/1.73 sqM) Glucose (74-99) mg/dL POC Glucose (mg/dL) 74 L (75-99) mg/dL POC Glu Pneumatic Tester Mechanic ID [address]imated [address] Glu mg/dL Hemoglobin A1c (4.0-6.0) % Calcium (8.4-10.2) mg/dL Total Bilirubin (0.2-1.3) mg/dL AST (17-59) U/L ALT (4-49) U/L Alkaline Phosphatase (38-126) U/L Troponin I (0.000-0.034) ng/mL Total Protein (6.3-8.2) g/dL Albumin (3.5-5.0) g/dL Vitamin B12 (200.0-944.0) pg/mL Folate ng/mL Urine Color Urine Appearance (Clear) Urine pH (5.0-8.0) Ur Specific [place] (1.001-1.035) Urine Protein (Negative) Urine Glucose (UA) (Negative) Urine Ketones (Negative) Urine Blood (Negative) Urine Nitrite (Negative) Urine Bilirubin (Negative) Urine Urobilinogen (<2.0) mg/dL Ur Leukocyte Esterase (Negative) Urine RBC (0-5) /hpf Urine WBC (0-5) /hpf Ur Squamous Epith Cells (0-4) /hpf Amorphous Sediment (None) /hpf Hyaline Casts (0-2) /lpf Urine Mucus (None) /hpf 09/19/20 09/19/20 09/19/20 Range/Units 02:15 02:15 02:15 WBC (3.8-10.6) k/uL RBC (4.30-5.90) m/uL Hgb (13.0-17.5) gm/dL Hct (39.0-53.0) % MCV (80.0-100.0) fL MCH (25.0-35.0) pg MCHC (31.0-37.0) g/dL RDW (11.5-15.5) % Plt Count (150-450) k/uL MPV Neutrophils % % Lymphocytes % % Monocytes % % Eosinophils % % Basophils % % Neutrophils # (1.3-7.7) k/uL Lymphocytes # (1.0-4.8) k/uL Monocytes # (0-1.0) k/uL Eosinophils # (0-0.7) k/uL Basophils # (0-0.2) k/uL PT (9.0-12.0) sec INR (<1.2) APTT (22.0-30.0) sec Sodium 137 (137-145) mmol/L Potassium 3.7 (3.5-5.1) mmol/L Chloride 107 (98-107) mmol/L Carbon Dioxide 25 (22-30) mmol/L Anion Gap 5 mmol/L BUN 15 (9-20) mg/dL Creatinine 0.74 (0.66-1.25) mg/dL Est GFR (CKD-EPI)AfAm >90 (>60 ml/min/1.73 sqM) Est GFR (CKD-EPI)NonAf 82 (>60 ml/min/1.73 sqM) Glucose 102 H (74-99) mg/dL POC Glucose (mg/dL) (75-99) mg/dL POC Glu Pneumatic Tester Mechanic ID Estimated Ave Glu mg/dL 105 Hemoglobin A1c 5.3 (4.0-6.0) % Calcium 7.7 L (8.4-10.2) mg/dL Total Bilirubin 0.4 (0.2-1.3) mg/dL AST 20 (17-59) U/L ALT 10 (4-49) U/L Alkaline Phosphatase 59 (38-126) U/L Troponin I <0.012 (0.000-0.034) ng/mL Total Protein 5.2 L (6.3-8.2) g/dL Albumin 3.0 L (3.5-5.0) g/dL Vitamin B12 (200.0-944.0) pg/mL Folate ng/mL Urine Color Urine Appearance (Clear) Urine pH (5.0-8.0) Ur Specific [place] (1.001-1.035) Urine Protein (Negative) Urine Glucose (UA) (Negative) Urine Ketones (Negative) Urine Blood (Negative) Urine Nitrite (Negative) Urine Bilirubin (Negative) Urine Urobilinogen (<2.0) mg/dL Ur Leukocyte Esterase (Negative) Urine RBC (0-5) /hpf Urine WBC (0-5) /hpf Ur Squamous Epith Cells (0-4) /hpf Amorphous Sediment (None) /hpf Hyaline Casts (0-2) /lpf Urine Mucus (None) /hpf 09/19/20 09/19/20 Range/Units 02:15 02:34 WBC (3.8-10.6) k/uL RBC (4.30-5.90) m/uL Hgb (13.0-17.5) gm/dL Hct (39.0-53.0) % MCV (80.0-100.0) fL MCH (25.0-35.0) pg MCHC (31.0-37.0) g/dL RDW (11.5-15.5) % Plt Count (150-450) k/uL MPV Neutrophils % % Lymphocytes % % Monocytes % % Eosinophils % % Basophils % % Neutrophils # (1.3-7.7) k/uL Lymphocytes # (1.0-4.8) k/uL Monocytes # (0-1.0) k/uL Eosinophils # (0-0.7) k/uL Basophils # (0-0.2) k/uL PT (9.0-12.0) sec INR (<1.2) APTT (22.0-30.0) sec Sodium (137-145) mmol/L Potassium (3.5-5.1) mmol/L Chloride (98-107) mmol/L Carbon Dioxide (22-30) mmol/L Anion Gap mmol/L BUN (9-20) mg/dL Creatinine (0.66-1.25) mg/dL Est GFR (CKD-EPI)AfAm (>60 ml/min/1.73 sqM) Est GFR (CKD-EPI)NonAf (>60 ml/min/1.73 sqM) Glucose (74-99) mg/dL POC Glucose (mg/dL) (75-99) mg/dL POC Glu Pneumatic Tester Mechanic ID Estimated Ave Glu mg/dL Hemoglobin A1c (4.0-6.0) % Calcium (8.4-10.2) mg/dL Total Bilirubin (0.2-1.3) mg/dL AST (17-59) U/L ALT (4-49) U/L Alkaline Phosphatase (38-126) U/L Troponin I (0.000-0.034) ng/mL Total Protein (6.3-8.2) g/dL Albumin (3.5-5.0) g/dL Vitamin B12 1497.0 H (200.0-944.0) pg/mL Folate >24.0 ng/mL Urine Color Light Yellow Urine Appearance Clear (Clear) Urine pH 6.5 (5.0-8.0) Ur Specific [place] 1.010 (1.001-1.035) Urine Protein Trace H (Negative) Urine Glucose (UA) Negative (Negative) Urine Ketones Negative (Negative) Urine Blood Moderate H (Negative) Urine Nitrite Negative (Negative) Urine Bilirubin Negative (Negative) Urine Urobilinogen <2.0 (<2.0) mg/dL Ur Leukocyte Esterase Small H (Negative) Urine RBC 5 (0-5) /hpf Urine WBC 11 H (0-5) /hpf Ur Squamous Epith Cells <1 (0-4) /hpf Amorphous Sediment Rare H (None) /hpf Hyaline Casts 17 H (0-2) /lpf Urine Mucus Rare H (None) /hpf - NIH Stroke Scale 1a. Level of Consciousness: (0) alert 1b. LOC Questions: (0) answers correctly 1c. LOC Commands: (0) performs tasks correctly 2. Best Gaze: (0) normal 3. Visual: (0) no visual loss 4. Facial Palsy: (0) normal symmetrical movement 5a. Motor Arm Left: (0) no drift 5b. Motor Arm Right: (0) no drift 6a. Motor Leg Left: (1) drift 6b. Motor Leg Right: (0) no drift 7. Limb Ataxia: (0) absent 8. Sensory: (0) normal 9. Best Language: (0) no aphasia 10. Dysarthria: (0) normal 11. 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 prostate cancer-had radiation History of Any Multi-Drug Resistant Organisms: None Reported Past Surgical History: Back Surgery, Cholecystectomy Additional Past Surgical History / Comment(s): [facility]. Past Anesthesia/Blood Transfusion Reactions: No Reported Reaction Past Psychological History: No Psychological Hx Reported Smoking Status: Never smoker Past Alcohol Use History: Rare Past Drug Use History: None Reported - Past Family History Mother Family Medical History: No Reported History Father Additional Family Medical History / Comment(s): Palpitations. Course Vital Signs 09/19/20 09/19/20 09/19/20 02:08 02:20 02:35 Temperature 98 F Pulse Rate 77 76 72 Respiratory 18 18 18 Rate Blood Pressure 117/68 155/64 114/47 O2 Sat by Pulse 98 99 100 Oximetry 09/19/20 09/19/20 09/19/20 02:50 03:05 03:35 Temperature Pulse Rate 73 72 70 Respiratory 18 18 18 Rate Blood Pressure 105/57 117/57 104/49 O2 Sat by Pulse 99 99 98 Oximetry 09/19/20 09/19/20 09/19/20 04:05 05:43 06:00 Temperature Pulse Rate 75 74 78 Respiratory 18 Rate Blood Pressure 110/74 108/55 O2 Sat by Pulse 98 95 96 Oximetry 09/19/20 09/19/20 09/19/20 07:37 09:00 10:00 Temperature 97.8 F Pulse Rate 74 81 77 Respiratory 18 16 16 Rate Blood Pressure 113/62 131/64 103/55 O2 Sat by Pulse 97 96 98 Oximetry 09/19/20 09/19/20 09/19/20 11:00 12:00 13:00 Temperature Pulse Rate 78 79 75 Respiratory 18 18 18 Rate Blood Pressure 119/54 120/75 134/63 O2 Sat by Pulse 100 99 98 Oximetry 09/19/20 09/19/20 09/19/20 14:00 15:00 18:00 Temperature 99.9 F H Pulse Rate 84 81 84 Respiratory 16 16 18 Rate Blood Pressure 134/63 131/62 132/66 O2 Sat by Pulse 99 97 98 Oximetry 09/19/20 20:49 Temperature 99.1 F Pulse Rate 82 Respiratory 18 Rate Blood Pressure 142/78 O2 Sat by Pulse 97 Oximetry Disposition Clinical Impression: Cerebrovascular accident (CVA) Disposition: ADMITTED IP TO THIS [facility] Condition: Good Is patient prescribed a controlled substance at d/c from ED?: No
[2020-09-19] MEDS ORDERED: ASPIRIN 325 MG TAB PO STA (04:19)
[2020-09-19] MEDS: SODIUM CHLORIDE 0.9% 1,000 ML IV SCH ×2 (05:52→18:43)
--- NOTE | 2020-09-19 08:13 | P.HPIM ---
History of Present Illness H&P Date: 09/19/20 Chief Complaint: Lateral weakness This is history and physical an 89-year-old white male with known history of Parkinson's disease and significant frailty who has been complaining of significant right-sided weakness. Initial workup has not show acute change. But given his overall comorbidities, neurology is requested that he be observed for short time. And to continue evaluation for possible impending element. No voiding difficulties. No significant nausea or vomiting. Typical Parkinson's facies. Review of Systems Constitutional: Denies chills, Denies fever Eyes: denies blurred vision, denies pain Ears, nose, mouth and throat: Denies headache, Denies sore throat Respiratory: Denies cough Gastrointestinal: Denies abdominal pain, Denies diarrhea, Denies nausea, Denies vomiting Musculoskeletal: Reports frequent falls, Reports myalgias Neurological: Reports gait dysfunction, Reports weakness, Denies change in smell/taste Psychiatric: Denies anxiety, Denies depression 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 prostate cancer-had radiation History of Any Multi-Drug Resistant Organisms: None Reported Past Surgical History: Back Surgery, Cholecystectomy Additional Past Surgical History / Comment(s): [facility]. Past Anesthesia/Blood Transfusion Reactions: No Reported Reaction Past Psychological History: No Psychological Hx Reported Smoking Status: Never smoker Past Alcohol Use History: Rare Past Drug Use History: None Reported - Past Family History Mother Family Medical History: No Reported History Medications and Allergies Home Medications Medication Instructions Recorded Confirmed Type Aspirin 81 mg PO DAILY 11/13/13 09/19/20 History amLODIPine BESYLATE/BENAZEPRIL 1 cap PO DAILY@1700 11/13/13 09/19/20 History [Lotrel 5-10 MG] metHOTREXate sodium [Methotrexate] 17.5 mg PO WE 11/13/13 09/19/20 History Folic Acid 1 mg PO DAILY 06/29/17 09/19/20 History Cholecalciferol (Vitamin D3) 2,000 unit PO DAILY 05/11/19 09/19/20 History [Vitamin D3] Cyanocobalamin (Vitamin B-12) 1,000 mcg PO DAILY 05/11/19 09/19/20 History [Vitamin B-12] HYDROcodone/APAP 5-325MG [[place] 1 tab PO Q6H PRN 05/11/19 09/19/20 History 5-325] Vit C/E/Zn/Coppr/Lutein/Zeaxan 1 cap PO BID@0800,1700 05/11/19 09/19/20 History [Preservision Areds 2 Softgel] Carbidopa-Levodopa ER 50-200Mg 1 tab PO BID@0800,1300 04/23/20 09/19/20 History [Sinemet ER 50-200] Zolpidem [Ambien] 5 mg PO HS PRN 04/23/20 09/19/20 History Furosemide [Lasix] 20 mg PO DAILY 09/19/20 09/19/20 History QUEtiapine [SEROquel] 25 mg PO HS 09/19/20 09/19/20 History Allergies Allergy/AdvReac Type Severity Reaction Status Date / Time No Known Allergies Allergy Verified 09/19/20 06:42 Physical Exam Vitals: Vital Signs Temp Pulse Resp BP Pulse Ox 09/19/20 07:37 97.8 F 74 18 113/62 97 09/19/20 04:05 75 18 110/74 98 09/19/20 03:35 70 18 104/49 98 09/19/20 03:05 72 18 117/57 99 09/19/20 02:50 73 18 105/57 99 09/19/20 02:35 72 18 114/47 100 09/19/20 02:20 76 18 155/64 99 09/19/20 02:08 98 F 77 18 117/68 98 Intake and Output 09/18/20 09/19/20 09/19/20 22:59 06:59 14:59 Other: Weight 97.522 kg - Constitutional General appearance: no acute distress - EENT Eyes: EOMI - Neck Neck: no lymphadenopathy - Respiratory Respiratory: bilateral: CTA - Cardiovascular Rhythm: regular Heart sounds: normal: S1, S2 Abnormal Heart Sounds: no S3 Gallop - Gastrointestinal General gastrointestinal: soft, no tenderness - Musculoskeletal Musculoskeletal: generalized weakness - Psychiatric Psychiatric: A&O x's 3 Results CBC & Chem 7: 09/19/20 02:15 09/19/20 02:15 Labs: Abnormal Lab Results - Last 24 Hours (Table) 09/19/20 09/19/20 09/19/20 Range/Units 02:12 02:15 02:15 RBC 3.76 L (4.30-5.90) m/uL Hgb 11.6 L (13.0-17.5) gm/dL Hct 36.2 L (39.0-53.0) % APTT 20.0 L (22.0-30.0) sec Glucose (74-99) mg/dL POC Glucose (mg/dL) 74 L (75-99) mg/dL Calcium (8.4-10.2) mg/dL Total Protein (6.3-8.2) g/dL Albumin (3.5-5.0) g/dL Urine Protein (Negative) Urine Blood (Negative) Ur Leukocyte Esterase (Negative) Urine WBC (0-5) /hpf Amorphous Sediment (None) /hpf Hyaline Casts (0-2) /lpf Urine Mucus (None) /hpf 09/19/20 09/19/20 Range/Units 02:15 02:34 RBC (4.30-5.90) m/uL Hgb (13.0-17.5) gm/dL Hct (39.0-53.0) % APTT (22.0-30.0) sec Glucose 102 H (74-99) mg/dL POC Glucose (mg/dL) (75-99) mg/dL Calcium 7.7 L (8.4-10.2) mg/dL Total Protein 5.2 L (6.3-8.2) g/dL Albumin 3.0 L (3.5-5.0) g/dL Urine Protein Trace H (Negative) Urine Blood Moderate H (Negative) Ur Leukocyte Esterase Small H (Negative) Urine WBC 11 H (0-5) /hpf Amorphous Sediment Rare H (None) /hpf Hyaline Casts 17 H (0-2) /lpf Urine Mucus Rare H (None) /hpf Assessment and Plan (1) Parkinsons disease Current Visit: No Status: Acute Code(s): G20 - PARKINSON'S DISEASE SNOMED Code(s): 34294225 (2) Rheumatoid arthritis Current Visit: No Status: Acute Code(s): M06.9 - RHEUMATOID ARTHRITIS, UNSPECIFIED SNOMED Code(s): 13287132 (3) TIA (transient ischemic attack) Current Visit: No Status: Acute Code(s): G45.9 - TRANSIENT CEREBRAL ISCHEMIC ATTACK, UNSPECIFIED SNOMED Code(s): 748038346 Plan: Standard approach for TIA/CVA workup. We'll continue to follow. Consult therapy as necessary. Prognosis is guarded secondary to his multiple comorbidities. Reconcile medications
[2020-09-19] MEDS ORDERED: FAMOTIDINE 20 MG/2 ML VIAL IV SCH (09:00)
[2020-09-19] MEDS: VIT A,C & E-LUTEIN-MINERALS 1 EACH TAB PO SCH (11:10)
[2020-09-19] MEDS: CYANOCOBALAMIN 500 MCG TAB PO SCH (11:10)
[2020-09-19] MEDS: CHOLECALCIFEROL 25 MCG (1000 IU) TABLET PO SCH (11:10)
[2020-09-19] MEDS: CARBIDOPA-LEVODOPA ER 50-200MG 1 EACH TABLET.ER PO SCH (11:10)
[2020-09-19] MEDS: FUROSEMIDE 20 MG TAB PO SCH (11:10)
[2020-09-19] MEDS: FOLIC ACID 1 MG TAB PO SCH (11:11)
[2020-09-19] MEDS: HEPARIN SODIUM,PORCINE 5,000 UNIT/ML 1 ML VIAL SQ SCH ×2 (11:13→22:12)
--- NOTE | 2020-09-19 12:41 | P.CNNES ---
History of Present Illness Consult date: 09/19/20 Requesting physician: Jose Calloway Reason for Consult: Acute ischemic stroke versus TIA History of Present Illness: Patient is a 89-year-old male with history of Parkinson's disease, rheumatoid arthritis and previous history of possible TIA in 2019, came to the hospital early this morning at around 2 AM by ambulance for right-sided weakness. Patient's was present, who provided all the history. 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 He has a hospital bed. Patient's helped him get to his wheelchair to the bathroom. He was able to stand up so she could change his clothes. Once he sat down in the wheelchair, he started leaning to the right. He kept on leaning to the right. She placed the waist belt to the back of the wheelchair so he would not fall on the side. She wheeled him down to the living room where there is a lift chair. She noted that he could not sit straighten up. Patient at this time was not able to get up, his legs would not do anything. Patient's did not notice any facial droop or focal weakness or slurring of speech, besides what he has parkinsonian slow speech. She called 911 and patient was brought to the hospital. Vital signs on arrival blood pressure 117/68, pulse rate 77, temperature 98.0. CT head negative. CTA of the neck showed no significant stenosis. 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 CTA of the head was normal. EKG shows sinus rhythm with first-degree AV block, with premature supraventr icular complexes and with occasional PVCs. Incomplete right bundle-branch block. Chest x-ray showed no acute cardiopulmonary process. Blood test shows normal WBC, hemoglobin 11.6, platelets 404. PT/PTT normal, Chem-7 normal. Hepatic panel normal. UA showed small amount of leukocyte Estrace 11 WBC. Bill virus negative. Patient was evaluated in the ER and his NIH stroke scale was reported as 1 with motor left leg drift. Patient was not considered a candidate for TPA because of symptom onset > 4.5 hours as per documentation. Patient apparently has similar presentation on 10/28/2018 when he at present with acute onset of gait difficulty and syncopal/seizure type spell. TIA was considered in the differential. He had a normal 2-D echo, EEG and a carotid Doppler. He was recommended to take 2 baby aspirins a day but he is still on 1 baby aspirin. Patient also has evidence of normal pressure hydrocephalus and was recommended to follow up with his neurologist. Patient's also states that he used to walk with a walker, until in March 2020, one day he just stopped walking with a walker and went on a beach chair. His neurologist Dr. 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 Patient takes Lotrel, aspirin 81 mg, methotrexate 17.5 mg every week, folic acid 1 mg, Golf, vitamin B12 1000 g, vitamin D, Sinemet 50/200 mg twice a day Ambien 5 mg, Seroquel 25 mg and Lasix 20 mg. Review of Systems Patient denies any headache, double vision, loss of vision denies any hoarseness. Patient does have some difficulty controlling urine with urgency but often can make it for the urinal. At night sometimes he takes, because patient's believes that he is on a "water pill". His memory is "off and on" per his . Denies any slurred speech facial droop. He does have parkinsonism. Denies any chest pain shortness of breath wheezing or cough. Denies any abdominal pain nausea vomiting diarrhea. All other review systems unremarkable except as per HPI. 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 prostate cancer-had radiation History of Any Multi-Drug Resistant Organisms: None Reported Past Surgical History: Back Surgery, Cholecystectomy Additional Past Surgical History / Comment(s): [facility]. Past Anesthesia/Blood Transfusion Reactions: No Reported Reaction Past Psychological History: No Psychological Hx Reported Smoking Status: Never smoker Past Alcohol Use History: Rare Past Drug Use History: None Reported - Past Family History Mother Family Medical History: No Reported History Father Additional Family Medical History / Comment(s): Palpitations. Medications and Allergies Home Medications Medication Instructions Recorded Confirmed Type Aspirin 81 mg PO DAILY 11/13/13 09/19/20 History amLODIPine BESYLATE/BENAZEPRIL 1 cap PO DAILY@1700 11/13/13 09/19/20 History [Lotrel 5-10 MG] metHOTREXate sodium [Methotrexate] 17.5 mg PO WE 11/13/13 09/19/20 History Folic Acid 1 mg PO DAILY 06/29/17 09/19/20 History Cholecalciferol (Vitamin D3) 2,000 unit PO DAILY 05/11/19 09/19/20 History [Vitamin D3] Cyanocobalamin (Vitamin B-12) 1,000 mcg PO DAILY 05/11/19 09/19/20 History [Vitamin B-12] HYDROcodone/APAP 5-325MG [Golf 1 tab PO Q6H PRN 05/11/19 09/19/20 History 5-325] Vit C/E/Zn/Coppr/Lutein/Zeaxan 1 cap PO BID@0800,1700 05/11/19 09/19/20 History [Preservision Areds 2 Softgel] Carbidopa-Levodopa ER 50-200Mg 1 tab PO BID@0800,1300 04/23/20 09/19/20 History [Sinemet ER 50-200] Zolpidem [Ambien] 5 mg PO HS PRN 04/23/20 09/19/20 History Furosemide [Lasix] 20 mg PO DAILY 09/19/20 09/19/20 History QUEtiapine [SEROquel] 25 mg PO HS 09/19/20 09/19/20 History Allergies Allergy/AdvReac Type Severity Reaction Status Date / Time No Known Allergies Allergy Verified 09/19/20 06:42 Physical Examination - Vital Signs Vital Signs: Vital Signs Temp Pulse Resp BP Pulse Ox 09/19/20 07:37 97.8 F 74 18 113/62 97 09/19/20 04:05 75 18 110/74 98 09/19/20 03:35 70 18 104/49 98 09/19/20 03:05 72 18 117/57 99 09/19/20 02:50 73 18 105/57 99 09/19/20 02:35 72 18 114/47 100 09/19/20 02:20 76 18 155/64 99 09/19/20 02:08 98 F 77 18 117/68 98 Intake and Output 09/18/20 09/19/20 09/19/20 22:59 06:59 14:59 Other: Weight 97.522 kg On examination patient is an elderly male, in no acute distress. He is alert and awake. He states it is June or July and the year is 2000 he knows he is in the hospital in [place]. Knows name of the current president. He states that he lives in [facility]. He knows that he is in the hospital but does not know the name. Speech language functions are normal although he speaks with low volume from parkinsonism. No aphasia or dysarthria. On cranial nerve exam her pupils are round and reactive to light, visual frances are full on confrontation, extraocular muscles are intact with no nystagmus. Face is symmetric, tongue protrudes to the midline. Palatal elevation and sensation is normal, hearing is slightly decreased and shoulder shrug normal, facial sensation normal. On muscle strength testing there is no pronator drift and the strength is normal in arms and legs distally and proximally except hip flexion which is about 4+ bilaterally. Reflexes are 1+ in the upper limbs, diminished at the knees and ankles and plantar is upgoing on the right, down on left. Sens ory to touch is equal with no neglect. No ataxia for [id number] testing. Tone is mildly increased, patient is significantly bradykinetic. No tremors at rest noted. Gait deferred. On general exam should there is no obvious bruit, since 2 audible, abdomen soft nontender, chest is clear, peripheral pulses present. Results - Laboratory Findings CBC and BMP: 09/19/20 02:15 09/19/20 02:15 Abnormal Lab Findings: Abnormal Labs 09/19/20 09/19/20 09/19/20 02:12 02:15 02:15 RBC 3.76 L Hgb 11.6 L Hct 36.2 L APTT 20.0 L Glucose POC Glucose (mg/dL) 74 L Calcium Total Protein Albumin Urine Protein Urine Blood Ur Leukocyte Esterase Urine WBC Amorphous Sediment Hyaline Casts Urine Mucus 09/19/20 09/19/20 02:15 02:34 RBC Hgb Hct APTT Glucose 102 H POC Glucose (mg/dL) Calcium 7.7 L Total Protein 5.2 L Albumin 3.0 L Urine Protein Trace H Urine Blood Moderate H Ur Leukocyte Esterase Small H Urine WBC 11 H Amorphous Sediment Rare H Hyaline Casts 17 H Urine Mucus Rare H Assessment and Plan Assessment: * Acute onset of gait difficulty and leaning to the right side. Differential diagnosis includes TIA/CVA, versus worsening of possible NPH. * Parkinsonism versus Parkinson's disease * Abnormal UA, rule out UTI, urine cultures pending Plan: * Patient had undergone CTA of the neck, which did not reveal any significant stenosis. * We will check fasting a.m. lipid panel and hemoglobin A1c. * MRI of the brain to evaluate for CVA/TIA, rule out NPH. * Patient's dose of aspirin has been increased to 325 mg. * We will also check B12, folate and TSH. * Patient's computed tomography scan of the head as well as previous MRI, does show evidence of hydrocephalus. Patient's symptoms are suggestive of possible NPH. We will await MRI of the brain to rule out CVA. If negative for acute CVA, then patient may benefit from therapeutic lumbar puncture to see if it helps with his gait and mobility. I discussed with patient's about considering lumbar puncture. She wants to think about it and let us know tomorrow. * PT and OT.
--- NOTE | 2020-09-19 16:05 | MR ---
EXAMINATION TYPE: MR brain wo con DATE OF EXAM: 09/19/2020 COMPARISON: CT brain from earlier today and October 27, 2018 HISTORY: Code stroke, acute onset neuro deficit. Right-sided weakness. TECHNIQUE: Multiplanar, multisequence imaging of the brain and brainstem is performed without IV cont rast. FINDINGS: Diffusion weighted images demonstrate no evidence of a recent infarct or other diffusion abnormality. There is diffuse ventricular and sulcal prominence. The degree of ventricular dilatation out of propo rtion to degree of sulcal effacement or normal pressure hydrocephalus is not excluded. Fourth ventric le slightly prominent axial image 8. No significant change from recent CT. Some focal and confluent a reas of T2 hyperintensity in the deep and periventricular white matter. Midline structures demonstrate normal morphology. Superior bowing of the corpus callosum. The cranio cervical junction appears within normal limits. Normal vascular flow voids are present. The visualize d sinuses are clear and the globes are intact. IMPRESSION: No MRI evidence for recent infarct. Moderate diffuse cerebral atrophy greatest over the b ilateral frontal lobes and mild to moderate chronic small vessel ischemic change. Underlying normal p ressure hydrocephalus not excluded. No significant change from prior CTs.
[2020-09-19] MEDS ORDERED: ACETAMINOPHEN TAB 325 MG TAB PO PRN (18:36)
[2020-09-19] MEDS: lisinopriL 10 MG TAB PO SCH (18:43)
[2020-09-19] MEDS: amLODIPine 5 MG TAB PO SCH (19:14)
[2020-09-19 19:28] LABS: RBC,Urine >182 /hpf (0-5); WBC,Urine >182 /hpf (0-5)
[2020-09-19 19:30] LABS: Color,Urine Red
[2020-09-19 19:31] LABS: Appearance,Urine Bloody (Clear)
[2020-09-19 21:40] LABS: Hemoglobin A1C 5.3 % (4.0-6.0)
[2020-09-19 21:43] LABS: Glucose,Whole Blood 96 mg/dL (75-99)
[2020-09-19 21:47] LABS: Folate, Serum >24.0 ng/mL
[2020-09-19] MEDS: FAMOTIDINE 20 MG TAB PO SCH (22:12)
[2020-09-19] MEDS: QUEtiapine 25 MG TAB PO SCH (22:12)
[2020-09-20] MEDS ORDERED: ASPIRIN 325 MG TAB PO SCH (04:30)
[2020-09-20] MEDS: SODIUM CHLORIDE 0.9% 1,000 ML IV SCH ×3 (06:47→20:11)
--- NOTE | 2020-09-20 08:47 | P.PN ---
Subjective Progress Note Date: 09/20/20 Principal diagnosis: The patient is 82-year-old white male essentially admitted for right-sided weakness. Appreciate neurology input. Underlying history of Parkinson's disease but now element of hematuria. The patient will have De La Rosa catheter The patient is here complaining of hematuria Objective - Vital Signs Vital signs: Vital Signs Temp 97.7 F 09/20/20 04:00 Pulse 94 09/20/20 04:00 Resp 18 09/20/20 04:00 BP 127/82 09/20/20 04:00 Pulse Ox 94 L 09/20/20 04:00 Intake & Output 09/19/20 09/20/20 09/20/20 18:59 06:59 18:59 Output Total 310 Balance -310 Weight 97.522 kg 64.5 kg Output: Urine 300 Straight 300 Post Void Residual 10 Other: Voiding Method Urinal Diaper Incontinent # Voids 1 - Constitutional General appearance: Present: average body habitus - EENT Eyes: Absent: abnormal pupil - Neck Neck: Absent: lymphadenopathy - Respiratory Respiratory: bilateral: CTA - Cardiovascular Rhythm: regular Heart sounds: normal: S1, S2 Abnormal Heart Sounds: Absent: S3 Gallop - Integumentary Integumentary: Present: normal. Absent: rash - Psychiatric Psychiatric: Present: A&O x's 3 - Labs CBC & Chem 7: 09/19/20 02:15 09/19/20 02:15 Labs: Abnormal Lab Results - Last 24 Hours (Table) 09/19/20 09/19/20 Range/Units 02:15 18:44 Vitamin B12 1497.0 H (200.0-944.0) pg/mL Urine RBC >182 H (0-5) /hpf Urine WBC >182 H (0-5) /hpf Microbiology - Last 24 Hours (Table) 09/19/20 02:34 Urine Culture - Preliminary Urine,Voided Assessment and Plan (1) Parkinsons disease Current Visit: No Status: Acute Code(s): G20 - PARKINSON'S DISEASE SNOMED Code(s): 13490996 (2) Rheumatoid arthritis Current Visit: No Status: Acute Code(s): M06.9 - RHEUMATOID ARTHRITIS, UNSPECIFIED SNOMED Code(s): 87238097 (3) TIA (transient ischemic attack) Current Visit: No Status: Acute Code(s): G45.9 - TRANSIENT CEREBRAL ISCHEMIC ATTACK, UNSPECIFIED SNOMED Code(s): 823412300 Plan: Standard approach for TIA/CVA workup. We'll continue to follow. Consult therapy as necessary. Prognosis is guarded secondary to his multiple comorbidities. Reconcile medications
[2020-09-20 09:17] LABS: HCT 38.2 % (39.0-53.0); HGB 12.7 gm/dL (13.0-17.5); MCH 31.3 pg (25.0-35.0); MCHC 33.1 g/dL (31.0-37.0); MCV 94.6 fL (80.0-100.0); Mean Platelet Volume 7.2; Platelet Count 383 k/uL (150-450); RBC 4.04 m/uL (4.30-5.90); RDW 15.3 % (11.5-15.5); WBC 12.7 k/uL (3.8-10.6)
[2020-09-20 09:21] LABS: Albumin 3.6 g/dL (3.5-5.0); Calcium 9.1 mg/dL (8.4-10.2); Potassium 4.4 mmol/L (3.5-5.1); Total Bilirubin 0.7 mg/dL (0.2-1.3); Total Protein 6.1 g/dL (6.3-8.2)
[2020-09-20] MEDS: FOLIC ACID 1 MG TAB PO SCH (10:12)
[2020-09-20] MEDS: FUROSEMIDE 20 MG TAB PO SCH (10:12)
[2020-09-20] MEDS: FAMOTIDINE 20 MG TAB PO SCH ×2 (10:12→20:11)
[2020-09-20] MEDS: CHOLECALCIFEROL 25 MCG (1000 IU) TABLET PO SCH (10:12)
[2020-09-20] MEDS: CYANOCOBALAMIN 500 MCG TAB PO SCH (10:12)
[2020-09-20] MEDS: HEPARIN SODIUM,PORCINE 5,000 UNIT/ML 1 ML VIAL SQ SCH ×2 (10:18→20:16)
[2020-09-20] MEDS: CARBIDOPA-LEVODOPA ER 50-200MG 1 EACH TABLET.ER PO SCH ×2 (11:50→12:26)
[2020-09-20] MEDS: VIT A,C & E-LUTEIN-MINERALS 1 EACH TAB PO SCH ×2 (11:50→17:15)
[2020-09-20] MEDS: HYDROcodone/APAP 5-325MG 1 EACH TAB PO PRN ×2 (14:24→22:43)
[2020-09-20] MEDS: amLODIPine 5 MG TAB PO SCH (17:15)
[2020-09-20] MEDS: QUEtiapine 25 MG TAB PO SCH (20:11)
--- NOTE | 2020-09-20 21:52 | P.PN ---
Subjective Progress Note Date: 09/20/20 Patient was seen earlier at around 6 PM. Patient is laying comfortably in the bed. Offers no complaints. Patient's was not present. Objective - Vital Signs Vital signs: Vital Signs Temp 98.4 F 09/20/20 20:00 Pulse 82 09/20/20 20:00 Resp 18 09/20/20 20:00 BP 137/63 09/20/20 20:00 Pulse Ox 99 09/20/20 20:00 Intake & Output 09/20/20 09/20/20 09/21/20 06:59 18:59 06:59 Intake Total 360 Output Total 310 927 Balance -310 -567 Weight 64.5 kg Intake: Oral 360 Output: Urine 300 600 Straight 300 300 Post Void Residual 10 327 Other: Voiding Method Urinal Indwelling Catheter Indwelling Catheter Diaper Incontinent # Voids 1 1 - Exam No change. Deferred. - Labs CBC & Chem 7: 09/20/20 08:29 09/20/20 08:29 Labs: Abnormal Lab Results - Last 24 Hours (Table) 09/19/20 09/20/20 09/20/20 Range/Units 02:15 08:29 08:29 WBC 12.7 H (3.8-10.6) k/uL RBC 4.04 L (4.30-5.90) m/uL Hgb 12.7 L (13.0-17.5) gm/dL Hct 38.2 L (39.0-53.0) % Glucose 112 H (74-99) mg/dL Total Protein 6.1 L (6.3-8.2) g/dL Vitamin B12 1497.0 H (200.0-944.0) pg/mL Microbiology - Last 24 Hours (Table) 09/19/20 02:34 Urine Culture - Final Urine,Voided Assessment and Plan Assessment: * Acute onset of gait difficulty and leaning to the right side. Differential diagnosis includes TIA/CVA, versus worsening of possible NPH. * Probable NPH, versus parkinsonism versus Parkinson's disease. * Abnormal UA, rule out UTI, urine cultures negative. Plan: * Patient had undergone CTA of the neck, which did not reveal any significant stenosis. * Fasting a.m. lipid panel with cholesterol 158, LDL 95, HDL 47 and trigl ycerides 82 * Hemoglobin A1c 5.3. * MRI of the brain revealed no acute stroke. Again reveals enlarged ventricles, with some amount of cortical atrophy. It appears central atrophy/ventricular dilation appears slightly more than cortical atrophy. Rule out NPH. * Patient's has mentioned, the patient has developed hematuria. We will decrease aspirin 325 mg down to aspirin 81 mg daily. Patient's does not want to think about lumbar puncture at this time to check for NPH, until his bladder/ issues has been resolved. * B12 1497, folate > 24. * PT and OT.
[2020-09-20] MEDS: ZOLPIDEM 5 MG TAB PO PRN (23:44)
[2020-09-21] MEDS: SODIUM CHLORIDE 0.9% 1,000 ML IV SCH ×2 (06:34→12:54)
[2020-09-21] MEDS: HYDROcodone/APAP 5-325MG 1 EACH TAB PO PRN (09:23)
[2020-09-21] MEDS: HEPARIN SODIUM,PORCINE 5,000 UNIT/ML 1 ML VIAL SQ SCH ×2 (09:23→20:26)
[2020-09-21] MEDS: FAMOTIDINE 20 MG TAB PO SCH ×2 (09:24→20:26)
[2020-09-21] MEDS: FUROSEMIDE 20 MG TAB PO SCH (09:24)
[2020-09-21] MEDS: CYANOCOBALAMIN 500 MCG TAB PO SCH (09:24)
[2020-09-21] MEDS: CHOLECALCIFEROL 25 MCG (1000 IU) TABLET PO SCH (09:24)
[2020-09-21] MEDS: FOLIC ACID 1 MG TAB PO SCH (09:24)
[2020-09-21] MEDS: ASPIRIN 81 MG PO SCH (09:24)
[2020-09-21] MEDS: VIT A,C & E-LUTEIN-MINERALS 1 EACH TAB PO SCH ×2 (09:25→18:11)
[2020-09-21] MEDS: CARBIDOPA-LEVODOPA ER 50-200MG 1 EACH TABLET.ER PO SCH ×2 (09:25→12:54)
--- NOTE | 2020-09-21 10:02 | US ---
EXAMINATION TYPE: US renals and bladder DATE OF EXAM: 09/21/2020 COMPARISON: NONE CLINICAL HISTORY: hematuria. EXAM MEASUREMENTS: Right Kidney: 9.3 x 5.1 x 4.4 cm Left Kidney: 10.4 x 5.6 x 4.6 cm Inpatient, unable to cooperate or move for examiner, difficult to penetrate, limited acoustic windows . Exam very limited Right Kidney: limited visualization shows no obvious abnormality Left Kidney: limited visualization shows no obvious abnormality Bladder: campbell, limited views show probable debris There is no evidence for hydronephrosis at this point in time. No nephrolithiasis is seen. No janice s are identified. The urinary bladder is anechoic. Bilateral ureteral jets are seen. IMPRESSION: Limited evaluation. No gross abnormality appreciated.
--- NOTE | 2020-09-21 15:13 | P.PN ---
Subjective Progress Note Date: 09/21/20 Patient was seen via Tele-medicine. Patient is laying comfortably in the bed. Offers no complaints. Patient's was present today. No new concerns. Patient's telemetry monitoring showing sinus rhythm in the 70s with occasional PVCs. Objective - Vital Signs Vital signs: Vital Signs Temp 98.4 F 09/21/20 08:00 Pulse 76 09/21/20 12:00 Resp 18 09/21/20 04:00 BP 119/58 09/21/20 12:00 Pulse Ox 95 09/21/20 12:00 Intake & Output 09/20/20 09/21/20 09/21/20 18:59 06:59 18:59 Intake Total 360 480 Output Total 927 440 600 Balance -567 -440 -120 Intake: Oral 360 480 Output: Urine 600 440 600 Straight 300 Post Void Residual 327 Other: Voiding Method Indwelling Catheter Indwelling Catheter Indwelling Catheter # Voids 1 # Bowel Movements 1 1 - Exam Patient's mental status is normal. Patient speaks with low volume. Patient is laying comfortably in the bed. - Labs CBC & Chem 7: 09/20/20 08:29 09/20/20 08:29 Labs: Microbiology - Last 24 Hours (Table) 09/20/20 08:29 Blood Culture - Preliminary Blood No Growth after 24 hours 09/19/20 02:34 Urine Culture - Final Urine,Voided Assessment and Plan Assessment: * Acute onset of gait difficulty and leaning to the right side. Differential diagnosis includes TIA, versus worsening of possible NPH. * Probable NPH, versus parkinsonism versus Parkinson's disease. * Abnormal UA, rule out UTI, urine cultures negative. * New onset hematuria. Plan: * Patient had undergone CTA of the neck, which did not reveal any significant stenosis. * Fasting a.m. lipid panel with cholesterol 158, LDL 95, HDL 47 and triglyceride s 82 * Hemoglobin A1c 5.3. * MRI of the brain revealed no acute stroke. Again reveals enlarged ventricles, with some amount of cortical atrophy. It appears central atrophy/ventricular dilation appears slightly more than cortical atrophy. Rule out NPH. * Patient's has mentioned, the patient has developed hematuria. We will decrease aspirin 325 mg down to aspirin 81 mg daily. Patient's does not want to think about lumbar puncture at this time to check for NPH, until his b ladder/ issues has been resolved. Please reconsult neurology, when and if our services needed. We will sign off. * B12 1497, folate > 24. * PT and OT.
--- NOTE | 2020-09-21 17:49 | P.PN ---
Subjective On-call hospitalist covering Dr. Mar over the weekend, Dr. 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 Neurology service signed off the case currently. Also patient developing hematuria in view of his history of prostate, urology service is consulted. Less likely UTI however continue with ceftriaxone. Urine culture is negative Review of systems CONSTITUTIONAL: No fever, no malaise, no fatigue. HEENT: No recent visual problems or hearing problems. Denied any sore throat. CARDIOVASCULAR: No orthopnea, PND, no palpitations, no syncope. PULMONARY: No shortness of breath, no cough, no hemoptysis. GASTROINTESTINAL: No diarrhea, no nausea, no vomiting, no abdominal pain. Normoactive bowel sounds. Active Medications Generic Name Dose Route Start Last Admin Trade Name Freq PRN Reason Stop Dose Admin Acetaminophen 650 mg 09/19/20 18:36 09/19/20 18:42 Acetaminophen Tab 325 Mg Tab PO 650 mg Q4HR PRN Administration Fever and/ or Pain Hydrocodone Bitart/Acetaminophen 1 each 09/19/20 08:11 09/21/20 09:23 Hydrocodone/Apap 5-325mg 1 Each Tab PO 1 each Q6H PRN Administration Pain Amlodipine Besylate 5 mg 09/19/20 17:00 09/20/20 17:15 Amlodipine 5 Mg Tab PO 5 mg DAILY@1700 REBEKAH Administration Aspirin 81 mg 09/21/20 09:00 09/21/20 09:24 Aspirin 81 Mg PO 81 mg DAILY REBEKAH Administration Carbidopa/Levodopa 1 each 09/19/20 13:00 09/21/20 12:54 Carbidopa-Levodopa Er 50-200mg 1 Each Tablet.Er PO 1 each BID@0800,1300 REBEKAH Administration Cholecalciferol 50 mcg 09/19/20 09:00 09/21/20 09:24 Cholecalciferol 25 Mcg (1000 Iu) Tablet PO 50 mcg DAILY REBEKAH Administration Cyanocobalamin 1,000 mcg 09/19/20 09:00 09/21/20 09:24 Cyanocobalamin 500 Mcg Tab PO 1,000 mcg DAILY REBEKAH Administration Famotidine 20 mg 09/19/20 21:00 09/21/20 09:24 Famotidine 20 Mg Tab PO 20 mg Q12HR REBEKAH Administration Folic Acid 1 mg 09/19/20 09:00 09/21/20 09:24 Folic Acid 1 Mg Tab PO 1 mg DAILY REBEKAH Administration Furosemide 20 mg 09/19/20 09:00 09/21/20 09:24 Furosemide 20 Mg Tab PO 20 mg DAILY REBEKAH Administration Heparin Sodium (Porcine) 5,000 unit 09/19/20 09:00 09/21/20 09:23 Heparin Sodium,Porcine 5,000 Unit/Ml 1 Ml Vial SQ 5,000 unit Q12HR REBEKAH Administration Ceftriaxone Sodium 1 gm/ 50 mls @ 100 mls/hr 09/19/20 22:30 09/21/20 09:24 Sodium Chloride IVPB 100 mls/hr Q24HR REBEKAH Administration Sodium Chloride 1,000 mls @ 75 mls/hr 09/21/20 11:15 09/21/20 12:54 Saline 0.9% IV 75 mls/hr .[id number] REBEKAH Administration Lisinopril 10 mg 09/19/20 17:00 09/19/20 18:43 Lisinopril 10 Mg Tab PO 10 mg DAILY@1700 [facility] Administration Methotrexate 17.5 mg 09/25/20 09:00 Methotrexate Sodium 2.5 Mg Tab PO We@0900 [facility] Multivitamins/Minerals 1 each 09/19/20 17:00 09/21/20 09:25 Vit A,C & M-Waspgw-Cgylcocc 1 Each Tab PO 1 each BID@0800,1700 [facility] Administration Quetiapine Fumarate 25 mg 09/19/20 21:00 09/20/20 20:11 Quetiapine 25 Mg Tab PO 25 mg HS REBEKAH Administration Zolpidem Tartrate 5 mg 09/19/20 08:11 09/20/20 23:44 Zolpidem 5 Mg Tab PO 5 mg HS PRN Administration Insomnia Objective - Vital Signs Vital signs: Vital Signs Temp 98.4 F 09/21/20 08:00 Pulse 76 09/21/20 12:00 Resp 18 09/21/20 04:00 BP 119/58 09/21/20 12:00 Pulse Ox 95 09/21/20 12:00 Intake & Output 09/20/20 09/21/20 09/21/20 18:59 06:59 18:59 Intake Total 360 480 Output Total 927 440 600 Balance -567 -440 -120 Intake: Oral 360 480 Output: Urine 600 440 600 Straight 300 Post Void Residual 327 Other: Voiding Method Indwelling Catheter Indwelling Catheter Indwelling Catheter # Voids 1 # Bowel Movements 1 1 - Exam GENERAL: The patient is alert and oriented x3, not in any acute distress. Well developed, well nourished. HEENT: Pupils are round and equally reacting to light. EOMI. No scleral icterus. No conjunctival pallor. Normocephalic, atraumatic. No pharyngeal erythema. No thyromegaly. CARDIOVASCULAR: S1 and S2 present. No murmurs, rubs, or gallops. PULMONARY: Chest is clear to auscultation, no wheezing or crackles. -ABDOMEN: Soft, nontender, nondistended, normoactive bowel sounds. No palpable organomegaly. De La Rosa catheter with hematuria MUSCULOSKELETAL: No joint swelling or deformity. EXTREMITIES: No cyanosis, clubbing, or pedal edema. -NEUROLOGICAL: Cranial nerves are grossly intact. Left side is weak SKIN: No rashes. no petechiae. - Labs CBC & Chem 7: 09/20/20 08:29 09/20/20 08:29 Labs: Microbiology - Last 24 Hours (Table) 09/20/20 08:29 Blood Culture - Preliminary Blood No Growth after 24 hours Assessment and Plan Assessment: Abnormal gait leaning towards the right, secondary to NPH, less likely stroke or Parkinson disease per neurologist Acute hematuria, unknown cause. Possibly related to his prostate disease. Possible UTI but less likely Hypertension History of recurrent arthritis on methotrexate History of GERD and history of prostate cancer status post radiation Plan: This is a pleasant 89 years old male who presents with gait difficulty secondary to NPH. Family refused lumbar puncture, neurologist start the patient on aspirin and currently he signed off the case. Also patient developed hematuria with history of prostate cancer status post radiotherapy. Less likely UTI, urine culture is negative. Currently on ceftriaxone. Urology consult is called. Labs and medication were reviewed.. Continue same treatment. Continue with symptomatic treatment. Resume home medication. Monitor lytes and vitals. DVT and GI prophylaxis. Further recommendationsas per clinical course of the patient DVT prophylaxis: Subcutaneous heparin GI Prophylaxis: Pepcid PT/OT: Subacute rehab, health social work professor consulted Prognosis is guarded
[2020-09-21] MEDS: lisinopriL 10 MG TAB PO SCH (18:10)
[2020-09-21] MEDS: amLODIPine 5 MG TAB PO SCH (18:10)
[2020-09-21] MEDS: ZOLPIDEM 5 MG TAB PO PRN (20:26)
[2020-09-21] MEDS: QUEtiapine 25 MG TAB PO SCH (20:27)
[2020-09-22] MEDS: SODIUM CHLORIDE 0.9% 1,000 ML IV SCH ×3 (05:38→17:42)
[2020-09-22] MEDS: ASPIRIN 81 MG PO SCH (08:26)
[2020-09-22] MEDS: HEPARIN SODIUM,PORCINE 5,000 UNIT/ML 1 ML VIAL SQ SCH ×2 (08:26→20:33)
[2020-09-22] MEDS: CHOLECALCIFEROL 25 MCG (1000 IU) TABLET PO SCH (08:26)
[2020-09-22] MEDS: CYANOCOBALAMIN 500 MCG TAB PO SCH (08:26)
[2020-09-22] MEDS: FUROSEMIDE 20 MG TAB PO SCH (08:26)
[2020-09-22] MEDS: FAMOTIDINE 20 MG TAB PO SCH ×2 (08:26→20:33)
[2020-09-22] MEDS: FOLIC ACID 1 MG TAB PO SCH (08:26)
[2020-09-22] MEDS: VIT A,C & E-LUTEIN-MINERALS 1 EACH TAB PO SCH ×2 (08:27→17:22)
[2020-09-22] MEDS: CARBIDOPA-LEVODOPA ER 50-200MG 1 EACH TABLET.ER PO SCH ×2 (08:27→12:38)
[2020-09-22 10:06] LABS: African American GFR (CKD) >90 (>60 ml/min/1.73 sqM); Anion Gap 3 mmol/L; Blood Urea Nitrogen 17 mg/dL (9-20); Calcium 8.3 mg/dL (8.4-10.2); Carbon Dioxide 28 mmol/L (22-30); Chloride 106 mmol/L (98-107); Glucose 96 mg/dL (74-99); Non-African American GFR(CKD) 80 (>60 ml/min/1.73 sqM); Potassium 3.8 mmol/L (3.5-5.1); Sodium 137 mmol/L (137-145)
[2020-09-22 10:28] LABS: Basophils # (A) 0.1 k/uL (0-0.2); Basophils % (A) 1 %; Eosinophils # (A) 0.4 k/uL (0-0.7); Eosinophils % (A) 5 %; HCT 29.7 % (39.0-53.0); Lymphocytes # (A) 1.7 k/uL (1.0-4.8); Lymphocytes % (A) 24 %; MCH 31.1 pg (25.0-35.0); MCHC 32.9 g/dL (31.0-37.0); MCV 94.5 fL (80.0-100.0); Mean Platelet Volume 7.4; Monocytes # (A) 0.5 k/uL (0-1.0); Monocytes % (A) 7 %; Neutrophils # (A) 4.5 k/uL (1.3-7.7); Neutrophils % (A) 62 %; Platelet Count 242 k/uL (150-450); RBC 3.14 m/uL (4.30-5.90); RDW 15.7 % (11.5-15.5); WBC 7.2 k/uL (3.8-10.6)
[2020-09-22 10:33] LABS: HGB 9.8 gm/dL (13.0-17.5)
[2020-09-22] MEDS: HYDROcodone/APAP 5-325MG 1 EACH TAB PO PRN ×2 (12:37→17:21)
--- NOTE | 2020-09-22 12:39 | P.GSCN ---
History of Present Illness Consult date: 09/22/20 Reason for Consult: Gross hematuria Requesting physician: Smith E Sheet History of present illness: The patient is a 89-year-old white male admitted with right-sided weakness. He is being evaluated and treated for a CVA/TIA. He according to the records had an episode of urinary incontinence prior to admission. Urinalysis obtained at the time of admission showed 5 RBC/HPF. A De La Rosa catheter was placed, and he is now noted to have gross hematuria. I am consulted for this reason. According to records, he has a history of prostate cancer treated with radiation therapy. He is unfortunately a vague historian and is unable to provide additional details. I attempted to reach his by phone but was unsuccessful. Renal ultrasound has been performed twice this month, neither showing any abnormalities. 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 prostate cancer-had radiation History of Any Multi-Drug Resistant Organisms: None Reported Past Surgical History: Back Surgery, Cholecystectomy Additional Past Surgical History / Comment(s): [facility]. Past Anesthesia/Blood Transfusion Reactions: No Reported Reaction Past Psychological History: No Psychological Hx Reported Smoking Status: Never smoker Past Alcohol Use History: Rare Past Drug Use History: None Reported - Past Family History Mother History Unknown: Yes Family Medical History: No Reported History Additional Family Medical History / Comment(s): Mother never discussed her health. Father Additional Family Medical History / Comment(s): Palpitations. Medications and Allergies Home Medications Medication Instructions Recorded Confirmed Type Aspirin 81 mg PO DAILY 11/13/13 09/19/20 History amLODIPine BESYLATE/BENAZEPRIL 1 cap PO DAILY@1700 11/13/13 09/19/20 History [Lotrel 5-10 MG] metHOTREXate sodium [Methotrexate] 17.5 mg PO WE 11/13/13 09/19/20 History Folic Acid 1 mg PO DAILY 06/29/17 09/19/20 History Cholecalciferol (Vitamin D3) 2,000 unit PO DAILY 05/11/19 09/19/20 History [Vitamin D3] Cyanocobalamin (Vitamin B-12) 1,000 mcg PO DAILY 05/11/19 09/19/20 History [Vitamin B-12] HYDROcodone/APAP 5-325MG [[place] 1 tab PO Q6H PRN 05/11/19 09/19/20 History 5-325] Vit C/E/Zn/Coppr/Lutein/Zeaxan 1 cap PO BID@0800,1700 05/11/19 09/19/20 History [Preservision Areds 2 Softgel] Carbidopa-Levodopa ER 50-200Mg 1 tab PO BID@0800,1300 04/23/20 09/19/20 History [Sinemet ER 50-200] Zolpidem [Ambien] 5 mg PO HS PRN 04/23/20 09/19/20 History Furosemide [Lasix] 20 mg PO DAILY 09/19/20 09/19/20 History QUEtiapine [SEROquel] 25 mg PO HS 09/19/20 09/19/20 History Allergies Allergy/AdvReac Type Severity Reaction Status Date / Time No Known Allergies Allergy Verified 09/19/20 06:42 Surgical - Exam Vital Signs Temp Pulse Resp BP Pulse Ox 98 F 77 18 117/68 98 09/19/20 02:08 09/19/20 02:08 09/19/20 02:08 09/19/20 02:08 09/19/20 02:08 - General well developed, well nourished, no distress - Respiratory normal respiratory effort - Abdomen Abdomen: soft, non tender, no guarding, no rigid, no rebound - Genitourinary Normal phallus, normal urethral meatus. The scrotum and testes are normal. A right hydrocele is noted. - Rectum Rectum: normal sphincter tone, no masses, other (Prostate flat, smooth) - Psychiatric oriented to time, oriented to person, oriented to place, speech is normal, memory intact Results - Labs 09/22/20 09:08 09/22/20 09:08 Abnormal Lab Results - Last 24 Hours (Table) 09/22/20 09/22/20 Range/Units 09:08 09:08 RBC 3.14 L (4.30-5.90) m/uL Hgb 9.8 L D (13.0-17.5) gm/dL Hct 29.7 L (39.0-53.0) % RDW 15.7 H (11.5-15.5) % Calcium 8.3 L (8.4-10.2) mg/dL Microbiology - Last 24 Hours (Table) 09/20/20 08:29 Blood Culture - Preliminary Blood No Growth after 48 hours Diabetes panel 09/22/20 Range/Units 09:08 Sodium 137 (137-145) mmol/L Potassium 3.8 (3.5-5.1) mmol/L Chloride 106 (98-107) mmol/L Carbon Dioxide 28 (22-30) mmol/L BUN 17 (9-20) mg/dL Creatinine 0.79 (0.66-1.25) mg/dL Glucose 96 (74-99) mg/dL Calcium 8.3 L (8.4-10.2) mg/dL Calcium panel 09/22/20 Range/Units 09:08 Calcium 8.3 L (8.4-10.2) mg/dL Pituitary panel 09/22/20 Range/Units 09:08 Sodium 137 (137-145) mmol/L Potassium 3.8 (3.5-5.1) mmol/L Chloride 106 (98-107) mmol/L Carbon Dioxide 28 (22-30) mmol/L BUN 17 (9-20) mg/dL Creatinine 0.79 (0.66-1.25) mg/dL Glucose 96 (74-99) mg/dL Calcium 8.3 L (8.4-10.2) mg/dL Adrenal panel 09/22/20 Range/Units 09:08 Sodium 137 (137-145) mmol/L Potassium 3.8 (3.5-5.1) mmol/L Chloride 106 (98-107) mmol/L Carbon Dioxide 28 (22-30) mmol/L BUN 17 (9-20) mg/dL Creatinine 0.79 (0.66-1.25) mg/dL Glucose 96 (74-99) mg/dL Calcium 8.3 L (8.4-10.2) mg/dL - Imaging US - kidney/bladder: report reviewed, image reviewed Assessment and Plan (1) Gross hematuria Current Visit: Yes Status: Acute Code(s): R31.0 - GROSS HEMATURIA SNOMED Code(s): 068003374 Plan: I do not see any PSA records available for review. The patient had only minimal microhematuria prior to De La Rosa catheter placement. He now has gross hematuria. The urine is dark, consistent with old blood. The catheter is draining well. From reviewing the records, I am unable to determine why the catheter was placed. If it was placed for any reason other than urinary retention, I would suggest that the catheter be removed. The hematuria is likely due to De La Rosa catheter trauma, as well as possible radiation cystitis. Outpatient cystoscopy could be considered to exclude intravesical pathology. Time with Patient: Greater than 30
--- NOTE | 2020-09-22 14:56 | P.PN ---
Subjective On-call hospitalist covering Dr. Mar over the weekend, Dr. 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 Neurology service signed off the case currently. Also patient developing hematuria in view of his history of prostate, urology service is consulted. Less likely UTI however continue with ceftriaxone. Urine culture is negative 09/22/2020 Patient is awake, no weakness in upper or lower extremity, he was leaning on his right side during his gait with some difficulty mostly due to NPH rather than stroke by neurologist however family does not want lumbar puncture for now. Also patient has stiffness from Parkinson disease with monitoring as speech. Patient is with De La Rosa catheter and has hematuria, urologist consult was obtained and he recommended to discontinue the De La Rosa catheter and it is not due to urinary retention, however follow up with urologist Dr. Crouch as an outpatient for cystoscopy to rule out intravesical pathology or radiation cystitis is recommended by Dr. Crouch. Evidence of infection is low and urine culture is negative therefore we will di scuss and U ceftriaxone especially it is not recommended by urologist Labs showing hemodilution with drop of all per meters from WBC 12.7 down to 7.2 and hemoglobin 12.7 down to 9.8 and platelets 383 down to 242. Patient hemodynamically stable and labs reviewed Keep gentle hydration for another 24 hours and reassess hydration status Objective - Vital Signs Vital signs: Vital Signs Temp 97.5 F L 09/22/20 08:00 Pulse 99 09/22/20 12:00 Resp 16 09/22/20 14:00 BP 172/76 09/22/20 12:00 Pulse Ox 97 09/22/20 12:00 Intake & Output 09/21/20 09/22/20 09/22/20 18:59 06:59 18:59 Intake Total 770 50 Output Total 600 440 Balance 170 -440 50 Weight 84.5 kg Intake: Intake, IV Titration 50 Amount cefTRIAXone 1 gm In 50 Sodium Chloride 0.9% 50 ml @ 100 mls/hr IVPB Q24HR [facility] Rx#:[id number] Oral 720 50 Output: Urine 600 440 Other: Voiding Method Indwelling Catheter Indwelling Catheter Indwelling Catheter # Voids 1 # Bowel Movements 1 - Exam GENERAL: The patient is alert and oriented x3, not in any acute distress. Well developed, well nourished. HEENT: Pupils are round and equally reacting to light. EOMI. No scleral icterus. No conjunctival pallor. Normocephalic, atraumatic. No pharyngeal erythema. No thyromegaly. CARDIOVASCULAR: S1 and S2 present. No murmurs, rubs, or gallops. PULMONARY: Chest is clear to auscultation, no wheezing or crackles. -ABDOMEN: Soft, nontender, nondistended, normoactive bowel sounds. No palpable organomegaly. De La Rosa catheter with hematuria MUSCULOSKELETAL: No joint swelling or deformity. EXTREMITIES: No cyanosis, clubbing, or pedal edema. -NEUROLOGICAL: Cranial nerves are grossly intact. Left side is weak SKIN: No rashes. no petechiae. - Labs CBC & Chem 7: 09/22/20 09:08 09/22/20 09:08 Labs: Abnormal Lab Results - Last 24 Hours (Table) 09/22/20 09/22/20 Range/Units 09:08 09:08 RBC 3.14 L (4.30-5.90) m/uL Hgb 9.8 L D (13.0-17.5) gm/dL Hct 29.7 L (39.0-53.0) % RDW 15.7 H (11.5-15.5) % Calcium 8.3 L (8.4-10.2) mg/dL Microbiology - Last 24 Hours (Table) 09/20/20 08:29 Blood Culture - Preliminary Blood No Growth after 48 hours Assessment and Plan Assessment: Abnormal gait leaning towards the right, secondary to NPH, less likely stroke or Parkinson disease per neurologist Acute hematuria, secondary to De La Rosa catheter per neurologist. Less likely related to his prostate disease or radiation cystitis. UTI felt unlikely. 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 Family refused lumbar puncture, neurologist start the patient on aspirin and currently he signed off the case. Also patient developed hematuria with history of prostate cancer status post radiotherapy. unlikely UTI, urine culture is negative. Currently on ceftriaxone which is stopped. Urology consult is called And they recommended to stop and discontinue the De La Rosa catheter no clinical indication for it. So I would suggest Monitor hematuria and consider discontinue De La Rosa catheter by Dr. Mar tomorrow if no clinical indication for it, we defer the decision to Dr. Mar as it is well known for him and present for De La Rosa catheter. Also to keep monitoring hemoglobin closely. Monitor for any signs and symptoms of worsening infection like fever or leukocytosis or medical symptoms while patient is off antibiotics. Keep gentle hydration with normal saline at 50 mL per hour for another 24 hours and reassess hydration status Labs and medication were reviewed.. Continue same treatment. Continue with symptomatic treatment. Resume home medication. Monitor lytes and vitals. DVT and GI prophylaxis. Further recommendationsas per clinical course of the patient DVT prophylaxis: Subcutaneous heparin GI Prophylaxis: Pepcid PT/OT: Subacute rehab, social group worker consulted Prognosis is guarded Dr. Mar will resume the care of the patient tomorrow
[2020-09-22] MEDS: lisinopriL 10 MG TAB PO SCH (17:22)
[2020-09-22] MEDS: amLODIPine 5 MG TAB PO SCH (17:22)
[2020-09-22] MEDS: QUEtiapine 25 MG TAB PO SCH (20:33)
[2020-09-22] MEDS: ZOLPIDEM 5 MG TAB PO PRN (20:33)
[2020-09-23] MEDS: FOLIC ACID 1 MG TAB PO SCH (09:30)
[2020-09-23] MEDS: CYANOCOBALAMIN 500 MCG TAB PO SCH (09:30)
[2020-09-23] MEDS: FAMOTIDINE 20 MG TAB PO SCH ×2 (09:30→20:17)
[2020-09-23] MEDS: FUROSEMIDE 20 MG TAB PO SCH (09:30)
[2020-09-23] MEDS: VIT A,C & E-LUTEIN-MINERALS 1 EACH TAB PO SCH ×2 (09:31→17:18)
[2020-09-23] MEDS: ASPIRIN 81 MG PO SCH (09:31)
[2020-09-23] MEDS: CHOLECALCIFEROL 25 MCG (1000 IU) TABLET PO SCH (09:31)
[2020-09-23] MEDS: HEPARIN SODIUM,PORCINE 5,000 UNIT/ML 1 ML VIAL SQ SCH ×2 (09:31→20:17)
[2020-09-23] MEDS: CARBIDOPA-LEVODOPA ER 50-200MG 1 EACH TABLET.ER PO SCH ×2 (09:32→12:05)
[2020-09-23] MEDS: lisinopriL 10 MG TAB PO SCH (17:18)
[2020-09-23] MEDS: amLODIPine 5 MG TAB PO SCH (17:18)
[2020-09-23] MEDS: SODIUM CHLORIDE 0.9% 1,000 ML IV SCH (17:18)
[2020-09-23] MEDS: QUEtiapine 25 MG TAB PO SCH (20:17)
[2020-09-23] MEDS: ZOLPIDEM 5 MG TAB PO PRN (20:17)
[2020-09-24] MEDS: HYDROcodone/APAP 5-325MG 1 EACH TAB PO PRN ×2 (02:35→08:31)
[2020-09-24 07:57] LABS: Basophils # (A) 0.1 k/uL (0-0.2); Basophils % (A) 1 %; Eosinophils # (A) 0.2 k/uL (0-0.7); Eosinophils % (A) 3 %; HCT 32.2 % (39.0-53.0); Lymphocytes # (A) 0.6 k/uL (1.0-4.8); Lymphocytes % (A) 12 %; MCH 31.8 pg (25.0-35.0); MCHC 34.2 g/dL (31.0-37.0); MCV 93.2 fL (80.0-100.0); Mean Platelet Volume 7.6; Monocytes # (A) 0.4 k/uL (0-1.0); Monocytes % (A) 8 %; Neutrophils # (A) 4.1 k/uL (1.3-7.7); Neutrophils % (A) 76 %; Platelet Count 246 k/uL (150-450); RBC 3.46 m/uL (4.30-5.90); WBC 5.5 k/uL (3.8-10.6)
[2020-09-24] MEDS: CHOLECALCIFEROL 25 MCG (1000 IU) TABLET PO SCH (08:30)
[2020-09-24] MEDS: CYANOCOBALAMIN 500 MCG TAB PO SCH (08:31)
[2020-09-24] MEDS: ASPIRIN 81 MG PO SCH (08:31)
[2020-09-24] MEDS: FAMOTIDINE 20 MG TAB PO SCH (08:31)
[2020-09-24] MEDS: FUROSEMIDE 20 MG TAB PO SCH (08:31)
[2020-09-24] MEDS: CARBIDOPA-LEVODOPA ER 50-200MG 1 EACH TABLET.ER PO SCH ×2 (08:32→13:13)
[2020-09-24] MEDS: FOLIC ACID 1 MG TAB PO SCH (08:32)
[2020-09-24] MEDS: HEPARIN SODIUM,PORCINE 5,000 UNIT/ML 1 ML VIAL SQ SCH (08:32)
[2020-09-24] MEDS: VIT A,C & E-LUTEIN-MINERALS 1 EACH TAB PO SCH ×2 (08:32→17:41)
[2020-09-24 08:39] VITALS: RESP 16; TEMP 98
--- NOTE | 2020-09-24 12:37 | P.PN ---
Subjective Principal diagnosis: The patient is 82-year-old white male essentially admitted for right-sided weakness. Appreciate neurology input. Underlying history of Parkinson's disease but now element of hematuria. The patient will have De La Rosa catheter The patient is here complaining of hematuria. Appreciate neurology input. Discharge planning to ECF most likely given his immobility Objective - Vital Signs Vital signs: Vital Signs Temp 98 F 09/24/20 08:00 Pulse 99 09/24/20 08:00 Resp 16 09/24/20 08:00 BP 165/82 09/24/20 08:00 Pulse Ox 96 09/24/20 08:00 Intake & Output 09/23/20 09/24/20 09/24/20 18:59 06:59 18:59 Intake Total 720 Output Total 450 195 Balance 270 -195 Weight 96.5 kg Intake: Oral 720 Output: Urine 450 125 Straight 125 Post Void Residual 70 Other: Voiding Method Urinal Urinal Urinal Diaper Diaper Diaper # Voids 1 2 - Constitutional General appearance: Present: no acute distress - EENT Eyes: Absent: abnormal pupil - Neck Neck: Absent: lymphadenopathy - Respiratory Respiratory: bilateral: diminished - Cardiovascular Heart sounds: normal: S1, S2 Abnormal Heart Sounds: Absent: S3 Gallop - Gastrointestinal General gastrointestinal: Present: soft. Absent: tenderness - Labs CBC & Chem 7: 09/24/20 07:42 09/22/20 09:08 Labs: Abnormal Lab Results - Last 24 Hours (Table) 09/24/20 Range/Units 07:42 RBC 3.46 L (4.30-5.90) m/uL Hgb 11.0 L (13.0-17.5) gm/dL Hct 32.2 L (39.0-53.0) % Lymphocytes # 0.6 L (1.0-4.8) k/uL Microbiology - Last 24 Hours (Table) 09/20/20 08:29 Blood Culture - Preliminary Blood No Growth after 96 hours Assessment and Plan (1) Parkinsons disease Current Visit: No Status: Acute Code(s): G20 - PARKINSON'S DISEASE SNOMED Code(s): 25184000 (2) Rheumatoid arthritis Current Visit: No Status: Acute Code(s): M06.9 - RHEUMATOID ARTHRITIS, UNSPECIFIED SNOMED Code(s): 27384131 (3) TIA (transient ischemic attack) Current Visit: No Status: Acute Code(s): G45.9 - TRANSIENT CEREBRAL ISCHEMIC ATTACK, UNSPECIFIED SNOMED Code(s): 942446371 Plan: Question element of NPH. Check CBC and CMP in a.m. Appreciate neurology input. Anticipate discharge in next 24-48 hours to ECF Time with Patient: Greater than 30
--- NOTE | 2020-09-24 12:40 | P.DS ---
Providers Date of admission: 09/19/20 04:19 Expected date of discharge: 09/24/20 Attending physician: Mandeep Mar Consults: 09/19/20 04:21 Consult Physician Routine Consulting Provider: Dakotah Noriega Consult Reason/Comments: Acute ischemic stroke versus TIA Do you want consulting provider notified?: Yes 09/21/20 11:00 Consult Physician Routine Consulting Provider: Iam Nolan Consult Reason/Comments: hematuria Do you want consulting provider notified?: Yes Primary care physician: Mandeep Mar - Discharge Diagnosis(es) (1) Parkinsons disease Current Visit: No Status: Acute (2) Rheumatoid arthritis Current Visit: No Status: Acute (3) TIA (transient ischemic attack) Current Visit: No Status: Acute Hospital Course: Patient is an 89-year-old white male with Parkinson's disease who had significant right-sided weakness workup by neurology and urology due to hematuria was done. The patient says intermittent hematuria but his hemoglobin is otherwise stable. I suspect scar tissue element. The patient's right-sided weakness has resolved. There has been element of diagnosis normal pressure hydrocephalus, but the family doesn't wish to have a spinal tap at this time. Consultants have signed off and he will be discharged when ECF available due to the fact of his immobility. Patient Condition at Discharge: Good Plan - Discharge Summary Discharge Rx Participant: No New Discharge Prescriptions: New RX: HYDROcodone/APAP 5-325MG [[place] 5-325] 1 each PO Q6H PRN #120 tab PRN Reason: Pain RX: Famotidine [Pepcid] 20 mg PO Q12HR tab RX: Acetaminophen Tab [Tylenol] 650 mg PO Q4HR PRN tab PRN Reason: Fever And/ Or Pain RX: lisinopriL [Zestril] 10 mg PO DAILY@1700 tab Continue RX: amLODIPine BESYLATE/BENAZEPRIL [Lotrel 5-10 MG] 1 cap PO DAILY@1700 RX: Aspirin 81 mg PO DAILY RX: metHOTREXate sodium [Methotrexate] 17.5 mg PO WE RX: Folic Acid 1 mg PO DAILY RX: HYDROcodone/APAP 5-325MG [[place] 5-325] 1 tab PO Q6H PRN PRN Reason: Pain RX: Cyanocobalamin (Vitamin B-12) [Vitamin B-12] 1,000 mcg PO DAILY RX: Vit C/E/Zn/Coppr/Lutein/Zeaxan [Preservision Areds 2 Softgel] 1 cap PO BID@0800,1700 RX: Cholecalciferol (Vitamin D3) [Vitamin D3] 2,000 unit PO DAILY RX: Carbidopa-Levodopa ER 50-200Mg [Sinemet CR 50-200 mg] 1 tab PO BID@0800,1300 RX: Zolpidem [Ambien] 5 mg PO HS PRN PRN Reason: Insomnia RX: QUEtiapine [SEROquel] 25 mg PO HS RX: Furosemide [Lasix] 20 mg PO DAILY Discharge Medication List RX: Aspirin 81 mg PO DAILY 11/13/13 [History] RX: amLODIPine BESYLATE/BENAZEPRIL [Lotrel 5-10 MG] 1 cap PO DAILY@1700 11/13/13 [History] RX: metHOTREXate sodium [Methotrexate] 17.5 mg PO WE 11/13/13 [History] RX: Folic Acid 1 mg PO DAILY 06/29/17 [History] RX: Cholecalciferol (Vitamin D3) [Vitamin D3] 2,000 unit PO DAILY 05/11/19 [His tory] RX: Cyanocobalamin (Vitamin B-12) [Vitamin B-12] 1,000 mcg PO DAILY 05/11/19 [History] RX: HYDROcodone/APAP 5-325MG [[place] 5-325] 1 tab PO Q6H PRN 05/11/19 [History] RX: Vit C/E/Zn/Coppr/Lutein/Zeaxan [Preservision Areds 2 Softgel] 1 cap PO BID@0800,1700 05/11/19 [History] RX: Carbidopa-Levodopa ER 50-200Mg [Sinemet CR 50-200 mg] 1 tab PO BID@0800,1300 04/23/20 [History] RX: Zolpidem [Ambien] 5 mg PO HS PRN 04/23/20 [History] RX: Furosemide [Lasix] 20 mg PO DAILY 09/19/20 [History] RX: QUEtiapine [SEROquel] 25 mg PO HS 09/19/20 [History] RX: Acetaminophen Tab [Tylenol] 650 mg PO Q4HR PRN tab 09/24/20 [Rx] RX: Famotidine [Pepcid] 20 mg PO Q12HR tab 09/24/20 [Rx] RX: HYDROcodone/APAP 5-325MG [[place] 5-325] 1 each PO Q6H PRN #120 tab 09/24/20 [Rx] RX: lisinopriL [Zestril] 10 mg PO DAILY@1700 tab 09/24/20 [Rx] Follow up Appointment(s)/Referral(s): Mandeep Mar MD [Primary Care Provider] - 1-2 days [facility], [NON-STAFF] - Activity/Diet/Wound Care/Special Instructions: Patient will need a Wheel Chair Van ride home, aware of cost. [phone] Discharge/Stand Alone Forms: Who Do I Call?, Help In The Home
[2020-09-24] MEDS: amLODIPine 5 MG TAB PO SCH (17:41)
[2020-09-24] MEDS: lisinopriL 10 MG TAB PO SCH (17:41)
[2020-09-24 18:53] VITALS: BP 161/70; PULSE 101
[2020-09-25] MEDS ORDERED: metHOTREXate sodium 2.5 MG TAB PO SCH (09:00)
== END 2020-09-24 18:20 | DRG 69 ==
LOC: EC 01:57 → 3SCARD 04:19
PROVIDERS: ADMIT Family Medicine; ATTEND Family Medicine
DX: G45.9 Transient cerebral ischemic attack, unspecified (principal); U07.1 COVID-19; G91.2 (Idiopathic) normal pressure hydrocephalus; G20 Parkinson's disease; Z79.82 Long term (current) use of aspirin; M06.9 Rheumatoid arthritis, unspecified; I10 Essential (primary) hypertension; I44.0 Atrioventricular block, first degree; R31.0 Gross hematuria; Z85.46 Personal history of malignant neoplasm of prostate; Z92.3 Personal history of irradiation
CPT/HCPCS: 36415; 70450; 70496; 70498; 70551; 71045; 76770; 80048; 80053; 80061; 81001; 82607; 82746; 83036; 83605; 84207; 84484; 85025; 85027; 85610; 85730; 87040; 87086; 87635; 93005; 96374; 96375; 99285

== ENCOUNTER 2020-09-26 15:31 | Emergency (ER) | payer MEDICARE, BC ==
[2020-09-26 16:10] LABS: Basophils % (A) 1 %; Eosinophils % (A) 1 %; HGB 11.5 gm/dL (13.0-17.5); Lymphocytes # (A) 1.6 k/uL (1.0-4.8); Lymphocytes % (A) 31 %; MCH 31.3 pg (25.0-35.0); MCHC 33.8 g/dL (31.0-37.0); MCV 92.8 fL (80.0-100.0); Mean Platelet Volume 7.7; Monocytes # (A) 0.3 k/uL (0-1.0); Monocytes % (A) 6 %; Neutrophils # (A) 3.1 k/uL (1.3-7.7); Neutrophils % (A) 61 %; Platelet Count 255 k/uL (150-450); RBC 3.66 m/uL (4.30-5.90); RDW 15.3 % (11.5-15.5); WBC 5.2 k/uL (3.8-10.6)
[2020-09-26 16:18] LABS: ALT 25 U/L (4-49); AST 48 U/L (17-59); African American GFR (CKD) >90 (>60 ml/min/1.73 sqM); Albumin 3.3 g/dL (3.5-5.0); Alkaline Phosphatase 67 U/L (38-126); Anion Gap 5 mmol/L; Blood Urea Nitrogen 20 mg/dL (9-20); Calcium 8.6 mg/dL (8.4-10.2); Carbon Dioxide 31 mmol/L (22-30); Chloride 99 mmol/L (98-107); Creatine Kinase 162 U/L (55-170); Glucose 91 mg/dL (74-99); Non-African American GFR(CKD) 79 (>60 ml/min/1.73 sqM); Potassium 3.7 mmol/L (3.5-5.1); Sodium 135 mmol/L (137-145); Total Bilirubin 0.4 mg/dL (0.2-1.3); Total Protein 5.6 g/dL (6.3-8.2)
[2020-09-26 16:22] LABS: INR 1.1 (<1.2); Partial Thromboplastin Time 26.9 sec (22.0-30.0); Prothrombin Time 11.7 sec (9.0-12.0)
[2020-09-26 16:31] LABS: RBC,Urine >182 /hpf (0-5); WBC,Urine >182 /hpf (0-5)
--- NOTE | 2020-09-26 16:42 | ED ---
General Adult HPI - General Chief complaint: Altered Mental Status Stated complaint: Altered mental status Source: patient Mode of arrival: wheelchair Limitations: altered mental status - History of Present Illness Initial comments: Patient is an 89-year-old male with past medical history of prostate cancer, Parkinson's who presents to the emergency department from [facility]. Staff called for hypotension and altered mental status. Patient was just recently hospitalized for hematuria and possible TIA. He had a [place] placed for gross hematuria. Staff states that the patient was altered however upon arrival to our facility patient is answered questions appropriately. Vitals demonstrate normal blood pressure, heart rate and oxygenation. Patient has no complaints at this time. Remainder of HPI is limited - Related Data Home Medications Medication Instructions Recorded Confirmed Aspirin 81 mg PO DAILY 11/13/13 09/26/20 amLODIPine BESYLATE/BENAZEPRIL 1 cap PO DAILY@1700 11/13/13 09/26/20 [Lotrel 5-10 MG] metHOTREXate sodium [Methotrexate] 17.5 mg PO WE 11/13/13 09/26/20 Folic Acid 1 mg PO DAILY 06/29/17 09/26/20 Vit C/E/Zn/Coppr/Lutein/Zeaxan 1 cap PO BID 05/11/19 09/26/20 [Preservision Areds 2 Softgel] Carbidopa-Levodopa ER 50-200Mg 1 tab PO BID@0900,1700 04/23/20 09/26/20 [Sinemet CR 50-200 mg] Furosemide [Lasix] 20 mg PO DAILY 09/19/20 09/26/20 QUEtiapine [SEROquel] 25 mg PO DAILY 09/19/20 09/26/20 ALPRAZolam [Xanax] 0.25 mg PO BID PRN 09/26/20 09/26/20 Cholecalciferol [Vitamin D3 (25 50 mcg PO DAILY 09/26/20 09/26/20 Mcg = 1000 Iu)] Cyanocobalamin [Vitamin B-12] 1,000 mcg PO DAILY 09/26/20 09/26/20 Famotidine [Pepcid] 20 mg PO BID 09/26/20 09/26/20 HYDROcodone/APAP 5-325MG [[place] 1 tab PO Q6H PRN 09/26/20 09/26/20 5-325] Previous Rx's Medication Instructions Recorded Acetaminophen Tab [Tylenol] 650 mg PO Q4HR PRN tab 09/24/20 Zolpidem [Ambien] 5 mg PO HS PRN #3 tab 09/24/20 Allergies Allergy/AdvReac Type Severity Reaction Status Date / Time No Known Allergies Allergy Verified 09/26/20 15:54 Review of Systems ROS Statement: Those systems with pertinent positive or pertinent negative responses have been documented in the HPI. ROS Other: All systems not noted in ROS Statement are negative. 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 prostate cancer-had radiation History of Any Multi-Drug Resistant Organisms: None Reported Past Surgical History: Back Surgery, Cholecystectomy Additional Past Surgical History / Comment(s): [facility]. Past Anesthesia/Blood Transfusion Reactions: No Reported Reaction Past Psychological History: No Psychological Hx Reported Smoking Status: Never smoker Past Alcohol Use History: Rare Past Drug Use History: None Reported - Past Family History Mother History Unknown: Yes Family Medical History: No Reported History Additional Family Medical History / Comment(s): Mother never discussed her health. Father Additional Family Medical History / Comment(s): Palpitations. General Exam Limitations: altered mental status Course Vital Signs 09/26/20 09/26/20 09/26/20 15:33 17:52 19:32 Temperature 98 F 97.9 F Pulse Rate 73 70 73 Respiratory 18 20 16 Rate Blood Pressure 109/47 131/82 146/79 O2 Sat by Pulse 99 99 98 Oximetry EKG Findings - EKG Comments: EKG Findings:: EKG demonstrates significant baseline artifact. A. fib versus normal sinus rhythm with PVCs. Rate of 73. QRS 112. QTC 451. No acute ST segment elevations or depressions Medical Decision Making - Medical Decision Making Upon arrival patient is placed into room 2. Patient's medical record is reviewed. Vitals are normal upon arrival. Laboratory studies were conducted. Patient is able to answer questions appropriately throughout his stay. Hemoglobin 11.5. Covid is detected however this is known to the patient. Patient sent for a CT of his head because of the reported altered mental status. CT is negative for any acute process. Chest x-ray demonstrates no definite ac katarina radiographic process. The patient has maintained normal vital signs and his baseline neurologic status during the stay in the ER. Patient does not meet any inpatient criteria at this time. He will be discharged back to [facility]. Family was updated and the patient was discharged home in stable condition - Lab Data Result diagrams: 09/26/20 15:59 09/26/20 15:59 Lab Results 09/26/20 09/26/20 09/26/20 Range/Units 15:59 15:59 15:59 WBC 5.2 (3.8-10.6) k/uL RBC 3.66 L (4.30-5.90) m/uL Hgb 11.5 L (13.0-17.5) gm/dL Hct 34.0 L (39.0-53.0) % MCV 92.8 (80.0-100.0) fL MCH 31.3 (25.0-35.0) pg MCHC 33.8 (31.0-37.0) g/dL RDW 15.3 (11.5-15.5) % Plt Count 255 (150-450) k/uL MPV 7.7 Neutrophils % 61 % Lymphocytes % 31 % Monocytes % 6 % Eosinophils % 1 % Basophils % 1 % Neutrophils # 3.1 (1.3-7.7) k/uL Lymphocytes # 1.6 (1.0-4.8) k/uL Monocytes # 0.3 (0-1.0) k/uL Eosinophils # 0.0 (0-0.7) k/uL Basophils # 0.0 (0-0.2) k/uL PT 11.7 (9.0-12.0) sec INR 1.1 (<1.2) APTT 26.9 (22.0-30.0) sec Sodium (137-145) mmol/L Potassium (3.5-5.1) mmol/L Chloride (98-107) mmol/L Carbon Dioxide (22-30) mmol/L Anion Gap mmol/L BUN (9-20) mg/dL Creatinine (0.66-1.25) mg/dL Est GFR (CKD-EPI)AfAm (>60 ml/min/1.73 sqM) Est GFR (CKD-EPI)NonAf (>60 ml/min/1.73 sqM) Glucose (74-99) mg/dL Calcium (8.4-10.2) mg/dL Total Bilirubin (0.2-1.3) mg/dL AST (17-59) U/L ALT (4-49) U/L Alkaline Phosphatase (38-126) U/L Creatine Kinase (55-170) U/L Troponin I (0.000-0.034) ng/mL Total Protein (6.3-8.2) g/dL Albumin (3.5-5.0) g/dL Urine Color Dark Red Urine Appearance Bloody (Clear) Ur Leukocyte Esterase Negative (Negative) Urine RBC >182 H (0-5) /hpf Urine WBC >182 H (0-5) /hpf Coronavirus (PCR) (Not Detectd) 09/26/20 09/26/20 09/26/20 Range/Units 15:59 15:59 15:59 WBC (3.8-10.6) k/uL RBC (4.30-5.90) m/uL Hgb (13.0-17.5) gm/dL Hct (39.0-53.0) % MCV (80.0-100.0) fL MCH (25.0-35.0) pg MCHC (31.0-37.0) g/dL RDW (11.5-15.5) % Plt Count (150-450) k/uL MPV Neutrophils % % Lymphocytes % % Monocytes % % Eosinophils % % Basophils % % Neutrophils # (1.3-7.7) k/uL Lymphocytes # (1.0-4.8) k/uL Monocytes # (0-1.0) k/uL Eosinophils # (0-0.7) k/uL Basophils # (0-0.2) k/uL PT (9.0-12.0) sec INR (<1.2) APTT (22.0-30.0) sec Sodium 135 L (137-145) mmol/L Potassium 3.7 (3.5-5.1) mmol/L Chloride 99 (98-107) mmol/L Carbon Dioxide 31 H (22-30) mmol/L Anion Gap 5 mmol/L BUN 20 (9-20) mg/dL Creatinine 0.83 (0.66-1.25) mg/dL Est GFR (CKD-EPI)AfAm >90 (>60 ml/min/1.73 sqM) Est GFR (CKD-EPI)NonAf 79 (>60 ml/min/1.73 sqM) Glucose 91 (74-99) mg/dL Calcium 8.6 (8.4-10.2) mg/dL Total Bilirubin 0.4 (0.2-1.3) mg/dL AST 48 (17-59) U/L ALT 25 (4-49) U/L Alkaline Phosphatase 67 (38-126) U/L Creatine Kinase 162 (55-170) U/L Troponin I <0.012 (0.000-0.034) ng/mL Total Protein 5.6 L (6.3-8.2) g/dL Albumin 3.3 L (3.5-5.0) g/dL Urine Color Urine Appearance (Clear) Ur Leukocyte Esterase (Negative) Urine RBC (0-5) /hpf Urine WBC (0-5) /hpf Coronavirus (PCR) Detected A (Not Detectd) Disposition Clinical Impression: Hematuria Disposition: HOME SELF-CARE Condition: Stable Instructions (If sedation given, give patient instructions): Hematuria (ED) Additional Instructions: You were diagnosed with hematuria for which you are suppose to follow up with the urologist in the office. Your vital signs were normal throughout your ER stay. Return to the ED for any new or worsening symptoms. Is patient prescribed a controlled substance at d/c from ED?: No Referrals: Renae Mosley MD [Primary Care Provider] - 1-2 days Time of Disposition: 18:21
[2020-09-26 16:52] LABS: Appearance,Urine Bloody (Clear); Color,Urine Dark Red; Leukocyte Esterase,Urine Negative (Negative)
--- NOTE | 2020-09-26 17:20 | CT ---
EXAMINATION: CT brain wo con DATE AND TIME: 09/26/2020 5:04 PM CLINICAL INDICATION: PHH; Altered mental status TECHNIQUE: Standard departmental protocol. DLP: 1098.4 mGy-cm COMPARISON: CT 09/19/2020 FINDINGS: The calvarium is intact. There is no intracranial hemorrhage. There is no intracranial mass or mass effect.No definite new intra-axial or extra-axial attenuation d efect. The ventricular system is prominent, more so than the cisternal and sulcal pattern. This is a nonspec ific finding but can correlate with a clinical diagnosis of normal pressure hydrocephalus. The paranasal sinuses, middle ear cavities, and mastoid sinus air cells are clear. The orbits are unremarkable. IMPRESSION: 1. No definite acute process. 2. Nonspecific panventriculomegaly pattern, as discussed.
[2020-09-26 17:54] VITALS: TEMP 97.9
--- NOTE | 2020-09-26 19:31 | XR ---
EXAMINATION: XR chest 2V DATE AND TIME: 09/26/2020 6:48 PM CLINICAL INDICATION: PHH; altered mental status TECHNIQUE: Frontal and lateral views COMPARISON: 09/19/2020 AP upright portable study FINDINGS: The lungs are relatively underinflated at the moment of x-ray exposure. Given this technical factor, they appear to be clear and well expanded bilaterally. The pleural spaces are negative. The cardiac silhouette appears enlarged, unchanged. The remainder of the mediastinal silhouette is un remarkable. The skeletal structures and soft tissues are negative for acute findings. IMPRESSION: No definite acute radiographic process.
[2020-09-26 19:33] VITALS: BP 146/79; PULSE 73; RESP 16
== END 2020-09-26 19:44 | disposition home or self-care (01) ==
LOC: EC 15:31
DX: U07.1 COVID-19 (principal); R31.9 Hematuria, unspecified; K21.9 Gastro-esophageal reflux disease without esophagitis; Z85.46 Personal history of malignant neoplasm of prostate
CPT/HCPCS: 36415; 70450; 71046; 80053; 81001; 82550; 84484; 85025; 85610; 85730; 87086; 87635; 93005; 99285